=== PATIENT | female | born 1970 | race Caucasian/White ===

== ENCOUNTER 2023-03-24 07:17 | Outpatient (OUT) | payer OTHER, BC, SELFPAY ==
--- NOTE | 2023-03-24 07:44 | MM_ITS ---
Patient: ARACELI CLARKE Exam Date: 03/24/2023 : 1970 Gender:F Ordering : DR BRENT RIVERA Admission #: [id number] Family : Non-Staff Physician Order #: [id number] CLICK HERE TO VIEW EXAM RADIOLOGY REPORT PROCEDURE: MM TOMOSYNTHESIS SCREENING BI COMPARISON: MG MAMM SCREEN 3D DAXA CAD, 11/23/2020. MG MAMM SCREEN 3D DAXA CAD, 02/03/2022. INDICATIONS: Screening Calculator Name NCI Breast Cancer Risk Assessment Tool 5 Year Breast Cancer Risk 1.20% Lifetime Breast Cancer Risk 10.60% Personal Breast Cancer No Personal Ovarian Cancer No Treatments None Family Cancers None LOCATION: [facility] BREAST COMPOSITION: Heterogeneously dense,which may obscure small masses. FINDINGS: DIAGNOSTIC CATEGORY 1--NEGATIVE. NO CHANGE FROM COMPARISON ASSESSMENT. Scattered benign-appearing calcifications are present. Scattered benign-appearing lymph nodes are present. RIGHT BREAST: No significant suspicious finding. LEFT BREAST: No significant suspicious finding. RECOMMENDATIONS: ROUTINE MAMMOGRAM AND CLINICAL EVALUATION IN 12 MONTHS. PLEASE NOTE: A NORMAL MAMMOGRAM DOES NOT EXCLUDE THE POSSIBILITY OF BREAST CANCER. A CLINICALLY SUSPICIOUS PALPABLE LUMP SHOULD BE BIOPSIED. Dictated by: Ryan Lopez MD on 03/24/2023 at 08:02 Approved by: Ryan Lopez MD on 03/24/2023 at 08:04
== END 2023-03-24 07:18 | disposition home or self-care (01) ==
LOC: MAMMO 07:17
PROVIDERS: Visit Provider Obstetrics & Gynecology
DX: Z12.31 Encounter for screening mammogram for malignant neoplasm of breast (principal)
CPT/HCPCS: 77063; 77067

== ENCOUNTER 2024-04-05 09:47 | Outpatient (OUT) | payer BC, SELFPAY ==
--- NOTE | 2024-04-05 09:50 | MM_ITS ---
Patient Name: ARACELI CLARKE MR#: [id number] : 1970 Exam Date: 04/05/2024 Ordering Doctor: DR BRENT RIVERA RADIOLOGY REPORT PROCEDURE: MM TOMOSYNTHESIS SCREENING BI COMPARISON: MM TOMOSYNTHESIS SCREENING BI, 03/24/2023. MG MAMM SCREEN 3D DAXA CAD, 02/03/2022. MG MAMM SCREEN 3D DAXA CAD, 11/23/2020. MG MAMM DAXA SCRN W CAD DIG, 03/25/2013. INDICATIONS: Screening Calculator Name NCI Breast Cancer Risk Assessment Tool 5 Year Breast Cancer Risk 1.30% Lifetime Breast Cancer Risk 10.50% Personal Breast Cancer No Personal Ovarian Cancer No Treatments None Family Cancers None LOCATION: [facility] BREAST COMPOSITION: The breasts are heterogeneously dense,which may obscure small masses. FINDINGS: DIAGNOSTIC CATEGORY 2--BENIGN FINDING: RIGHT BREAST: No significant suspicious finding. No significant change has occurred. LEFT BREAST: No significant suspicious finding. Scattered benign-appearing lymph nodes are present. No significant change has occurred. RECOMMENDATIONS: ROUTINE MAMMOGRAM AND CLINICAL EVALUATION IN 12 MONTHS. PLEASE NOTE: A NORMAL MAMMOGRAM DOES NOT EXCLUDE THE POSSIBILITY OF BREAST CANCER. A CLINICALLY SUSPICIOUS PALPABLE LUMP SHOULD BE BIOPSIED. Dictated by: Barry Lucia M.D. on 04/10/2024 at 14:31 Approved by: Barry Lucia M.D. on 04/10/2024 at 14:45
== END 2024-04-05 09:48 | disposition home or self-care (01) ==
LOC: MAMMO 09:47
PROVIDERS: Visit Provider Obstetrics & Gynecology
DX: Z12.31 Encounter for screening mammogram for malignant neoplasm of breast (principal)
CPT/HCPCS: 77063; 77067

== ENCOUNTER 2025-04-24 14:20 | Outpatient (OUT) | payer BC, SELFPAY ==
--- OUTSIDE RECORDS SUMMARY | 2025-04-24 14:23 | XMS_ITS | Encounter Summary ---
Author Organization [facility] Address [address] [place] [address] Care Team Providers Care Production Solderer Name Role Phone Jose Muhammad MD Primary Care Provider [phone] Andressa Cronin MD Unavailable [phone] Tom Hope DO Unavailable [phone] Encounter Details Date Type Department Care Team (Late st Contact Info) Description 04/10/2024 Clinisync Result Encounter [facility] External Department Unsolicited Brent Rivera, DO [address] [facility] [address] [place] [address] Social History Tobacco Use Types Packs/Day Years Used Date Smoking Tobacco: Former Cigarettes 0.3 10 Smokeless Tobacco: Never Alcohol Use Standard Drinks/Week Comments Not Currently 2 (1 standard drink = 0.6 oz pure alcohol) Caffeine intake: >4 cups per day coffee AUDIT-C Answer Date Recorded Q1: How often do you have a drink containing alc ohol? Monthly or less 07/10/2023 Q2: How many drinks containi ng alcohol do you have on a typical day when you are drinking? 1 or 2 07/10/2023 Q3: How often do you have si x or more drinks on one occasion? Never 07/10/2023 PHQ-2 Answer Date Recorded Patient Health Questionnaire-2 Score 0 07/10/2023 Comments No Sex and Gender Information Value Date Recorded Sex Assigned at Female 07/03/2023 9:10 AM EST Legal Sex Female 6:54 PM EDT Gender Identity Female 07/03/2023 9:10 AM EST Sexual Orientation Not on file documented as of this encounter Plan of Treatment Upcoming Encounters Date Type Department Care Team (Late st Contact Info) Description 07/25/2025 8:30 AM EST Office Visit [facility] [address] [place] [phone] Brent Rivera DO [address] [place] [address] 11/26/2025 4:05 PM EDT Office Visit [facility] [address] [place] [address] Trudy Contreras MD [address] [place] [address] documented as of this encounter Procedures Procedure Name Priority Date/Time Associated Diagnosis Comments MM TOMOSYNTHESIS SCREENING BI 04/10/2024 2:45 PM EDT documented in this encounter Results * MM TOMOSYNTHESIS SCREENING BI (04/10/2024 2:45 PM EDT) Anatomical Region Laterality Modality Other 04/10/2024 2:45 PM EDT Narrative 04/10/2024 2:46 [place] [address] Mammography Report Signed Patient: POLA CLARKE MR#: [id number] : 1970 Acct:[id number] Age/Sex: 53 / F ADM Date: 04/05/24 Loc: MAMMO Attending Dr: BRENT RIVERA Ordering Physician: BRENT RIVERA Results: Date of Service: 04/05/24 Follow Up: Procedure(s): MM tomosynthesis screening BI Accession Number(s): [id number] cc: BRENT RIVERA ; Physician,Non-Staff M.D. Patient Name: POLA CLARKE MR#: [id number] : 1970 Exam Date: 04/05/2024 Ordering Doctor: DR BRENT RIVERA RADIOLOGY REPORT PROCEDURE: MM TOMOSYNTHESIS SCREENING BI COMPARISON: MM TOMOSYNTHESIS SCREENING BI, 03/24/2023. MG MAMM SCREEN 3D DAXA CAD, 02/03/2022. MG MAMM SCREEN 3D DAXA CAD, 11/23/2020. MG MAMM DAXA SCRN W CAD DIG, 03/25/2013. INDICATIONS: Screening Calculator Name NCI Breast Cancer Risk Assessment Tool 5 Year Breast Cancer Risk 1.30% Lifetime Breast Cancer Risk 10.50% Personal Breast Cancer No Personal Ovarian Cancer No Treatments None Family Cancers None LOCATION: [facility] BREAST COMPOSITION: The breasts are heterogeneously dense,which may obscure small masses. FINDINGS: DIAGNOSTIC CATEGORY 2--BENIGN FINDING: RIGHT BREAST: No significant suspicious finding. No significant change has occurred. LEFT BREAST: No significant suspicious finding. Scattered benign-appearing lymph nodes are present. No significant change has occurred. RECOMMENDATIONS: ROUTINE MAMMOGRAM AND CLINICAL EVALUATION IN 12 MONTHS. PLEASE NOTE: A NORMAL MAMMOGRAM DOES NOT EXCLUDE THE POSSIBILITY OF BREAST CANCER. A CLINICALLY SUSPICIOUS PALPABLE LUMP SHOULD BE BIOPSIED. Dictated by: Barry Lucai M.D. on 04/10/2024 at 14:31 Approved by: Barry Lucia M.D. on 04/10/2024 at 14:45 Dictated By: Barry Lucia M.D. Signed By: 04/10/24 1446 DD/ 1445 TD/TT: Coagulant Dipper: Procedure Note Radiology, Radiologist, MD - 04/10/2024 [place] [address] Mammography Report Signed Patient: POLA CLARKE MMR#: [id number] : 1970Acct:[id number] Age/Sex: 53 / FADM Date: 04/05/24 Loc: MAMMO Attending Dr: BRENT RIVERA Ordering Physician: BRENT RIVERAResults: Date of Service: 04/05/24Follow Up: Procedure(s): MM tomosynthesis screening BI Accession Number(s): [id number] cc: BRENT RIVERA ; Physician,Non-Staff Lisa Patient Name: POLA CLARKE MR#: [id number] : 1970 Exam Date: 04/05/2024 Ordering Doctor: DR BRENT RIVERA RADIOLOGY REPORT PROCEDURE: MM TOMOSYNTHESIS SCREENING BI COMPARISON: MM TOMOSYNTHESIS SCREENING BI, 03/24/2023. MG MAMM [id number] DXAA CAD, 02/03/2022. MG MAMM SCREEN 3D DAXA CAD, 11/23/2020. MG MAMM BILSCRN W CAD DIG, 03/25/2013. INDICATIONS: Screening Calculator Name NCI Breast Cancer Risk Assessment Tool 5 Year Breast Cancer Risk 1.30% Lifetime Breast Cancer Risk 10.50% Personal Breast Cancer No Personal Ovarian Cancer No Treatments None Family Cancers None LOCATION: [facility] BREAST COMPOSITION: The breasts are heterogeneously dense,which may obscure small masses. FINDINGS: DIAGNOSTIC CATEGORY 2--BENIGN FINDING: RIGHT BREAST: No significant suspicious finding. No significant changehas occurred. LEFT BREAST: No significant suspicious finding. Scatteredbenign-appearing lymph nodes are present. No significant change has occurred. RECOMMENDATIONS: ROUTINE MAMMOGRAM AND CLINICAL EVALUATION IN 12 MONTHS. PLEASE NOTE: A NORMAL MAMMOGRAM DOES NOT EXCLUDE THE POSSIBILITY OFBREAST CANCER. A CLINICALLY SUSPICIOUS PALPABLE LUMP SHOULD BE BIOPSIED. Dictated by: Barry Lucia M.D. on 04/10/2024 at 14:31 Approved by: Barry Lucia M.D. on 04/10/2024 at 14:45 Dictated By: Barry Lucia M.D. Signed By:04/10/24 1446 DD/ 1445 TD/TT: Coagulant Dipper: Brent Rivera DO [facility] Final Resu lt documented in this encounter Visit Diagnoses Not on filedocumented in this encounter Care Teams Production Solderer Relationship Specialty Start Date End Date Jose Muhammad MD PCP - General Family Medicine 07/10/23 Andressa Cronin MD [address] [facility] [address] [place] [address], [place] [address] Referring Physician Family Medicine 07/22/24 Tom Hope DO [address] [place] [address] Otolaryngology 07/23/24 documented as of this encounter
--- OUTSIDE RECORDS SUMMARY | 2025-04-24 14:23 | XMS_ITS | Encounter Summary ---
Author Organization [facility] Address [address] [place] [address] Care Team Providers Care Hammer Driver Name Role Phone Jose Muhammad MD Primary Care Provider [phone] Andressa Cronin MD Unavailable [phone] Tom Hope DO Unavailable [phone] Encounter Details Date Type Department Care Team (Late st Contact Info) Description 03/29/2023 Orders Only [facility] [address] [place] [address] John Gomes DO [address] [place], [place] [id number] Social History Tobacco Use Types Packs/Day Years Used Date Smoking Tobacco: Never Assessed Comments Unknown Sex and Gender Information Value Date Recorded Sex Assigned at Female 07/03/2023 9:10 AM EST Legal Sex Female 6:54 PM EDT Gender Identity Female 07/03/2023 9:10 AM EST Sexual Orientation Not on file documented as of this encounter Plan of Treatment Upcoming Encounters Date Type Department Care Team (Late st Contact Info) Description 07/25/2025 8:30 AM EST Office Visit [facility] [address] [place] [address] Jhon Gomes, [address] [place] [address] 11/26/2025 4:05 PM EDT Office Visit [facility] [address] [place] [phone] Trudy Contreras MD [address] [place] [address] documented as of this encounter Procedures Procedure Name Priority Date/Time Associated Diagnosis Comments MAMMOGRAM-DIAGNOSTIC* Routine 03/24/2023 8:59 AM EDT documented in this encounter Results * MAMMOGRAM-DIAGNOSTIC* (03/24/2023 8:59 AM EDT) Anatomical Region Laterality Modality Radiographic Alecia ging John Gomes DO IMG XR PROCEDURES Final Resu lt documented in this encounter Visit Diagnoses Not on filedocumented in this encounter Care Teams Hammer Driver Relationship Specialty Start Date End Date Jose Muhammad MD PCP - General Family Medicine 07/10/23 Andressa Cronin MD [address] [facility] [address] [place] [address] Referring Physician Family Medicine 07/22/24 Tom Hope DO [address] [place] [place] [address] Otolaryngology 07/23/24 documented as of this encounter
--- NOTE | 2025-04-24 14:24 | MM_ITS ---
Patient Name: ARACELI CLARKE MR#: [id number] : 1970 Exam Date: 04/24/2025 Ordering Doctor: DR BRENT RIVERA RADIOLOGY REPORT PROCEDURE: MM TOMOSYNTHESIS SCREENING BI COMPARISON: MM TOMOSYNTHESIS SCREENING BI, 04/05/2024. MM TOMOSYNTHESIS SCREENING BI, 03/24/2023. MG MAMM SCREEN 3D DAXA CAD, 02/03/2022. MG MAMM DAXA SCRN W CAD DIG, 03/25/2013. INDICATIONS: Screening Calculator Name NCI Breast Cancer Risk Assessment Tool 5 Year Breast Cancer Risk 1.30% Lifetime Breast Cancer Risk 10.30% Personal Breast Cancer No Personal Ovarian Cancer No Treatments None Family Cancers None LOCATION: [facility] BREAST COMPOSITION: There are scattered areas of fibroglandular density. FINDINGS: DIAGNOSTIC CATEGORY 1--NEGATIVE. RIGHT BREAST: No significant suspicious finding. LEFT BREAST: No significant suspicious finding. RECOMMENDATIONS: ROUTINE MAMMOGRAM AND CLINICAL EVALUATION IN 12 MONTHS. Dictated by: Shiva Newsome MD on 04/24/2025 at 16:02 Approved by: Shiva Newsome MD on 04/24/2025 at 16:07
--- OUTSIDE RECORDS SUMMARY | 2025-04-24 14:24 | XMS_ITS | Clinical Summary ---
Author Organization [facility] Address [address] [place] [address] Care Team Providers Care Hot Repairman Name Role Phone Jose Muhammad MD Primary Care Provider Andressa Cronin MD Unavailable [phone] Tom Hope DO Unavailable [phone] Allergies Active Allergy Reactions Criticality Noted Date Comments Morphine Hives,Itching,Other,Rash Low 07/10/2023 Penicillamine GI intolerance 07/10/2023 Penicillins 07/10/2023 Other Reaction(s): Unknown Medications Ventolin HFA 108 (90 Base) MCG/ACT inhaler if needed 11/28/2022 Act mery cholecalciferol (Vitamin D3) 25 MCG (1000 UT) tablet Active loratadine (Claritin) 10 MG tablet if needed Active zinc 100 MG tablet Active cyclobenzaprine (Flexeril) 5 MG tablet Take 5 mg by mouth 09/29/2023 Active ibuprofen 800 MG tablet Take 800 mg by mouth every 6 (six) hours Active fluticasone (Flonase Allergy Relief) 50 MCG/ACT nasal spray 06/07/2024 Active fluorouracil (Efudex) 5 % creamIndication s:Actinic keratosis Apply to directed areas on left eyebrow bid x 14 days 40 g 11/25/2024 Active Active Problems Problem Noted Date Diagnosed Date Tympanic membrane rupture 08/08/2024 Fibrocystic breast changes 07/10/2023 Status post hysterectomy 07/10/2023 Abscess of skin of abdomen 07/10/2023 Acute sinusitis with symptoms > 10 days 07/10/20 23 Anxiety 07/10/2023 Conjunctivitis 07/10/2023 COVID-19 vaccine series started 07/10/2023 OM (onychomycosis) 07/10/2023 Panic attack as reaction to stress 07/10/2023 Resolved Problems Problem Noted Date Diagnosed Date Resolved Date Cervical high risk HPV (héctor n papillomavirus) test positive 07/10/2023 07/10/2023 Vaginal high risk human carolin llomavirus (HPV) DNA test positive 07/10/2023 07/10/2023 COVID-19 07/10/2023 07/10/2023 COVID-19 long hauler 07/10/2023 023 Current smoker 07/10/2023 07/10/2023 Overview (07/10/2023): Added secondary to documentation in Social History. Immunizations Immunization Administration Dates Next Due Influenza, Unspecified 06/05/2023 Influenza, injectable, quadrivalent, preservativ e free 06/05/2023 MMR 06/28/2023 Family History Medical History Relation Name Comments Diabetes Maternal Grandfather Marcelino Nelson Hearing loss Maternal Grandfather Marcelino Nelson Heart disease Maternal Grandfather Marcelino Nelson Hypertension Maternal Grandfather Marcelino Nelson Stroke Maternal Grandmother Diana Nelson Diabetes Mother Shayy Andres Cancer Neg Hx Melanoma Neg Hx Relation Name Status Comments Father Maternal Grandfather Marcelino Nelson Maternal Grandmother Diana Andres Social History Tobacco Use Types Packs/Day Years Used Date Smoking Tobacco: Former Cigarettes 0.3 10 Smokeless Tobacco: Never Alcohol Use Standard Drinks/Week Comments Not Currently 2 (1 standard drink = 0.6 oz pure alcohol) Caffeine intake: >4 cups per day coffee AUDIT-C Answer Date Recorded Q1: How often do you have a drink containing alc ohol? Monthly or less 07/19/2024 Q2: How many drinks containi ng alcohol do you have on a typical day when you are drinking? 1 or 2 07/19/2024 Q3: How often do you have si x or more drinks on one occasion? Never 07/19/2024 PHQ-2 Answer Date Recorded Patient Health Questionnaire-2 Score 0 07/19/2024 Comments No Sex and Gender Information Value Date Recorded Sex Assigned at Female 07/03/2023 9:10 AM EST Legal Sex Female 6:54 PM EDT Gender Identity Female 07/03/2023 9:10 AM EST Sexual Orientation Not on file Last Filed Vital Signs Vital Sign Reading Time Taken Comments Blood Pressure 160/86 07/19/2024 8:20 AM EST Pulse - - Temperature - - Respiratory Rate - - Oxygen Saturation - - Inhaled Oxygen Concentration - - Weight 81.6 kg (180 lb) 09/10/2024 3:12 PM EST Height 167.6 cm (5' 6 ) 09/10/2024 3:12 PM EST Body Mass Index 29.05 09/10/2024 3:12 PM EST Plan of Treatment Upcoming Encounters Date Type Department Care Team (Late st Contact Info) Description 07/25/2025 8:30 AM EST Office Visit [facility] [address] [place] [address] Brent Rivera DO [address] [place] [address] 11/26/2025 4:05 PM EDT Office Visit [facility] [address] [place] [address] Trudy Contreras MD [address] [place] [address] Health Maintenance Due Date Last Done Comments CT Colonography 1970 Colonoscopy 1970 Colorectal Cancer Screening 1970 FIT-DNA 1971 FIT 1971 FOBT 1970 Sigmoidoscopy 1970 Pap Smear 1992 Influenza Vaccine (#1) 2025 06/05/2023, 2022 Mammogram 04/10/2025 04/10/2024, 03/07, 02/03/2022, Additional history exists Cervical Cancer Screening 07/19/2029 HPV/Cotest 07/19/2029 07/19/2024, 03/07, 10/08/2019, Additional history exists Procedures Procedure Name Priority Date/Time Associated Diagnosis Comments IGP,RFXAPTIMA HPV ALL,16/18,45 Routine 07/19/2024 12:00 AM EST Encounter for Papanicolaou smear of vagina MM TOMOSYNTHESIS SCREENING BI 04/10/2024 2:45 PM EDT from Last 3 Months or Most Recently Relevant to Health Maintenance Results * IGP,rfxAptima HPV all,16/18,45 (07/19/2024 12:00 AM EST) Diagnosis: Comment [facility] Comment:NEGATIVE FOR INTRAEP ITHELIAL LESION OR MALIGNANCY. Specimen Adequacy: Comment [facility] Comment: Satisfactory for evaluation. No endocervical cells are present. This is consistent with a history of hysterectomy. Clinician Provided ICD10: Comment [facility] Comment:Z12.72 Performed By: Comment [facility] Comment:Bonnie Verma, Cytot echnologist (ASC) Cyto Comments . [facility] Note: Comment [facility] Comment: The Pap smear is a screening test designed to aid in the detection of premalignant and malignant conditions of the uterine cervix. It is not a diagnostic procedure and should not be used as the sole means of detecting cervical cancer. Both false-positive and false-negative reports do occur. Test Methodology: Comment [facility] Comment: This liquid based ThinPrep(R) pap test was screened with the use of an image guided system. . Comment [facility] Comment: The HPV DNA reflex criteria were not met with this specimen result therefore, no HPV testing was performed. Swab Vaginal structure / Unknown 07/19/2024 07/22/2024 Comment:Vagina LMP: ROMY BSO 20 Narrative [facility] - 07/26/2024 1:06 PM EST Performed at: [facility] [id number] Revising Clerk: Felicity Rose MD, Phone: [phone] Specimen Comment: [id number] Specimen Comment: No. of containers..01 ThinPrep Vial Brent Rivera DO LAB CYTOLOGY ORDERABLES Elin fontenot Result [facility] * MM TOMOSYNTHESIS SCREENING BI (04/10/2024 2:45 PM EDT) Anatomical Region Laterality Modality Other 04/10/2024 2:45 PM EDT Narrative 04/10/2024 2:46 [place] [address] Mammography Report Signed Patient: POLA CATHERINE MR#: [id number] : 1970 Acct:[id number] Age/Sex: 53 / F ADM Date: 04/05/24 Loc: MAMMO Attending Dr: BRENT RIVERA Ordering Physician: BRENT RIVERA Results: Date of Service: 04/05/24 Follow Up: Procedure(s): MM tomosynthesis screening BI Accession Number(s): [id number] cc: BRENT RIVERA ; Physician,Non-Staff Lisa Patient Name: POLA CATHERINE MR#: [id number] : 1970 Exam Date: 04/05/2024 Ordering Doctor: [...] Treatments None Family Cancers None LOCATION: [facility] BREAST COMPOSITION: The breasts are heterogeneously dense,which [...] Signed By: 04/10/24 1446 DD/ 1445 TD/TT: Shipper/Receiver: Procedure Note Radiology, Radiologist, MD - 04/10/2024 [place] [address] Mammography Report Signed Patient: POLA CATHERINE MMR#: [id number] : 1970Acct:[id number] Age/Sex: 53 / FADM Date: 04/05/24 Loc: MAMMO Attending Dr: BRENT RIVERA Ordering Physician: BRENT RIVERAResults: Date of Service: 04/05/24Follow Up: Procedure(s): MM tomosynthesis screening BI Accession Number(s): [id number] cc: BRENT RIVERA ; Physician,Non-Staff Lisa Patient Name: POLA CATHERINE MR#: [id number] : 1970 Exam Date: 04/05/2024 Ordering Doctor: DR BRENT RIVERA RADIOLOGY REPORT PROCEDURE: MM TOMOSYNTHESIS SCREENING BI COMPARISON: MM TOMOSYNTHESIS SCREENING BI, 03/24/2023. MG MAMM [id number] DAXA CAD, 02/03/2022. MG MAMM SCREEN 3D DAXA CAD, 11/23/2020. MG MAMM BILSCRN W CAD DIG, 03/25/2013. INDICATIONS: Screening Calculator Name NCI Breast Cancer Risk Assessment Tool 5 Year Breast Cancer Risk 1.30% Lifetime Breast Cancer Risk 10.50% Personal Breast Cancer No Personal Ovarian Cancer No Treatments None Family Cancers None LOCATION: [facility] BREAST COMPOSITION: The breasts are heterogeneously dense,which [...] M.D. Signed By:04/10/24 1446 DD/ 1445 TD/TT: Shipper/Receiver: Brent Rivera DO [facility] Final Resu lt from Last 3 Months or Most Recently Relevant to Health Maintenance Insurance [facility] Care Teams Hot Repairman Relationship Specialty Start Date End Date Jose Muhammad MD PCP - General Family Medicine 07/10/23 Andressa Cronin MD [address] [place] [address] Referring Physician Family Medicine 07/22/24 Tom Hope DO [address] [place] [address] Otolaryngology 07/23/24
--- OUTSIDE RECORDS SUMMARY | 2025-04-24 14:40 | XMS_ITS | CCD ---
Author Organization [facility] Inform ion [facility] Care Team Providers Care Environmental Engineer Scientist Name Role Phone NICOLE, DR KENNEDY Attending Unavailable NICOLE, DR KENNEDY Admitting Unavailable RONALD, DR JR Martinez Consulting Unavailable [facility], DR MICHELLE Primary Care Unavailable NICOLE, DR KENNEDY Consulting Unavailable KRYSTA CRUZ Primary Care Physician MD Chris Singh Primary Care Provider [facility] Visits, NIKOS Tian Attending Prov ider LAWSON FELIPE Primary Care Physician OWEN CRONIN Primary Care Physician [phone] OWEN CRONIN Admitting UnavailOWEN Herndon Attending UnavailHiro Mixon Attending Unavailable OWEN CRONIN Attending UnavailOWEN Herndon Attending UnavailOWEN Herndon Admitting UnavailOWEN Herndon Attending UnavailOWEN Herndon Referring UnavailOWEN Herndon Attending UnavailOWEN Herndon Admitting UnavailMD Chris Dyer Primary Care Provider [facility], DO Scotty Vasquez [facility] Admitting Unavailable Chris Singh Primary Care Unavailable Jose Muhammad MD Primary Care Provider Owen Cronin MD Unavailable [phone] Tom Oro DO Unavailable [phone] Jose Muhammad MD Primary Care Provider TOM ORO Attending Unavailable OWEN CRONIN Referring Unavailable GERBER PARKER Attending Unavailable JOHN RIVERA Attending Unavailable TOM ORO Attending Unavailable OWEN CRONIN Referring Unavailable TOM ORO Attending Unavailable OWEN CRONIN Referring Unavailable Keily Dangelo Admitting Unavailable BorKeily harper Attending Unavailable Lisa Jacobo Attending Unavailable Keily Dangelo Attending Unavailable Keily Dangelo Attending Unavailable OWEN CRONIN Attending Unavailabl e Keily Dangelo Admitting Unavailable Keily Dangelo Attending Unavailable OWEN CRONIN Referring Unavailabl e OWEN CRONIN Admitting Unavailabl e OWEN CRONIN Attending Unavailabl e OWEN CRONIN Attending Unavailabl e OWEN CRONIN Attending Unavailabl e Allergies Allergy Classification Reported Allergen(s) Allergy Type Date of Onset Reaction(s) Facility (20 sources) Morphine; Translations: [morphine] Drug Allergy 07-10-20 23 Hives, Itching, Other, Rash [facility] (20 sources) Penicillins; Translations: [penicillins] Drug allergy 07-10-20 23 Gastrointestinal Upset [facility] (1 source) Morphine Drug Allergy 12-05-19 [facility] (13 sources) penicillAMINE Drug Allergy 07-10-20 23 GI intolerance [facility] Medications Current Medications Medication Drug Class(es) Dates Sig (Normalized) Sig (Original) [id number] 200 actuat albuterol 0.09 mg/actuat metered dose inhaler (13 sources) beta2-Adrenergic Agonist Start: 11-28-2022 Ventolin HFA 108 (90 Base) MCG/ACT inhaler if needed 11/28/2022 Active azithromycin 250 mg oral tablet (1 source) Macrolide Antimicrobial Start: 04-16-2025 End: 04-21-2025 Zithromax 250 mg Tab = 1 packet(s), Oral, As Directed, as directed on package labeling, X 5 day(s), # 6 tab(s), Refills(s) 0, Pharmacy: [facility] #[id number], 168, cm, 04/16/25 11:29:00 EDT, Height/Length Dosing, 86.1, kg, 04/16/25 11:29:00 EDT, Weight Dosing Start Date: 04/16/25 Stop Date: 04/21/25 Status: Ordered Quantity: 6.0 Unit: tab(s) Repeat number: 1 Indications: Chronic sinusitis, unspecified; azithromycin 250 mg Tab 5-day Dose Pack (Z-Valentín) (3 sources) Start: 09-18-2024 azithromycin 250 mg Tab 5-day Dose Pack (Z-Valentín) See Instructions, Take 2 tablets by mouth orally today then 1 tablet daily for the next 4 days, # 6 tab(s), Refills(s) 0, Pharmacy: [facility] #[id number], 168, cm, 09/18/24 17:24:00 EST, Height/Length Dosing, 85, kg, 09/18/24 17:24:00 EST, Weight Dosing Start Date: 09/18/24 Status: Ordered Quantity: 6.0 Unit: tab(s) Repeat number: 1 Indications: Wheezing; Other specified cough; Start: 09-18-2024 azithromycin 2 50 mg Tab 5-day Dose Pack (Z-Valentín) See Instructions, Take 2 tablets by mouth orally today then 1 tablet daily for the next 4 days, # 6 tab(s), Refills(s) 0, Pharmacy: [facility] #[id number], 168, cm, 09/18/24 17:24:00 EST, Height/Length Dosing, 85, kg, 09/18/24 17:24:00 EST, Weight Dosing Start Date: 09/18/24 Status: Ordered benzonatate 100 mg oral capsule (2 sources) Non-narcotic Antitussive Start: 04-10-2025 End: 04-24-2025 take 1 capsule by mouth three times daily Tessalon 100 mg Cap 100 mg = 1 cap(s), Oral, TID, X 14 day(s), # 42 cap(s), Refills(s) 0, Pharmacy: [facility] #[id number], 168, cm, 04/10/25 9:07:00 EDT, Height/Length Dosing, 84.4, kg, 04/10/25 9:07:00 EDT, Weight Dosing Start Date: 04/10/25 Stop Date: 04/24/25 Status: Ordered Quantity: 42.0 Unit: cap(s) Repeat number: 1 Indications: Pneumonia, unspecified organism; brompheniramine maleate 0.4 mg/ml / dextromethorphan hydrobromide 2 mg/ml / pseudoephedrine hydrochloride 6 mg/ml oral solution (4 sources) alpha-Adrenergic Agonist, Uncompetitive A-fcinjd-H-asparta te Receptor Antagonist, Sigma-1 Agonist Start: 04-04-2025 End: 04-09-2025 take 10 mL by mouth four times daily Bromfed DM oral syrup 10 mL, Oral, QID for 5 day(s), 200 mL, Refill(s) 0, [facility] #[id number], 168, cm, 04/04/25 17:02:00 EDT, Height/Length Dosing, 85.3, kg, 04/04/25 17:02:00 EDT, Weight Dosing Start Date: 04/04/25 Stop Date: 04/09/25 Status: Ordered Quantity: 200.0 Unit: mL Repeat number: 1 Indications: Acute pharyngitis, unspecified; Start: 09-11-2024 End: 09-21-2024 take 10 mL by mouth four times daily for cough and congestion Bromfed DM oral syrup 10 mL, Oral, QID for cough and congestion for 10 day(s), 240 mL, Refill(s) 0, [facility] #[id number], 168, cm, 09/11/24 9:13:00 EST, Height/Length Dosing, 84.2, kg, 09/11/24 9:13:00 EST, Weight Dosing Start Date: 09/11/24 Stop Date: 09/21/24 Status: Ordered Calcium Citrate / Vitamin D (12 sources) Start: 05-21-2020 take 1 tablet by mouth once daily calcium-vitamin D See Instructions, Refill(s) 0, 1 tab po daily Start Date: 05/21/20 Status: Ordered Repeat number: 1 Start: 05-21-2020 take 1 tablet by yaima once daily calcium-vitamin D See Instructions, Refill(s) 0, 1 tab po daily Start Date: 05/21/20 Status: Ordered cefdinir 300 mg oral capsule (2 sources) Cephalosporin Antibacterial Start: 09-11-2024 End: 09-18-2024 take 1 capsule by mouth every twelve hours cefdinir 300 mg Cap 300 mg = 1 cap(s), Oral, q12hr, X 7 day(s), # 14 cap(s), Refills(s) 0, [id number], 168, cm, 09/11/24 9:13:00 EST, Height/Length Dosing, 84.2, kg, 09/11/24 9:13:00 EST, Weight Dosing Start Date: 09/11/24 Stop Date: 09/18/24 Status: Ordered Start: 12-08-2022 End: 12-18-2022 take 1 capsule by mouth every twelve hours cefdinir 300 mg Cap 300 mg = 1 cap(s), Oral, q12hr, X 10 day(s), # 20 cap(s), Refills(s) 0, Pharmacy: [facility] #[id number], 168, cm, 12/08/22 10:46:00 EDT, Height/Length Dosing, 83.6, kg, 12/08/22 10:46:00 EDT, Weight Dosing Start Date: 12/08/22 Stop Date: 12/18/22 Status: Ordered cephalexin 500 mg oral capsule (1 source) Cephalosporin Antibacterial Start: 03-28-2024 take 500 mg by mouth every twelve hours Cephalexin Active 500 MG PO Every 12 hours 17 02March 27, 2024 11:00pm cholecalciferol 0.025 mg oral tablet (13 sources) Vitamin D cholecalciferol (Vitamin D3) 25 MCG (1000 UT) tablet Active cyclobenzaprine hydrochloride 5 mg oral tablet (20 sources) Muscle Relaxant Start: 09-29-2023 take 1 tablet by mouth three times daily cyclobenzaprine 5 mg Tab 5 mg = 1 tab(s), Oral, TID, # 30 tab(s), Refills(s) 1, Pharmacy: [facility] #[id number], 168, cm, 09/29/23 15:08:00 EST, Height/Length Dosing, 83, kg, 09/29/23 15:08:00 EST, Weight Dosing Start Date: 09/29/23 Status: Ordered Quantity: 30.0 Unit: tab(s) Repeat number: 2 Indications: Body mass index [BMI] 29.0-29.9, adult; Overweight; doxycycline hyclate 100 mg oral capsule (9 sources) Tetracycline-class Drug Start: 04-16-2025 take 1 capsule by mouth twice daily doxycycline hyclate 100 mg Cap 100 mg = 1 cap(s), Oral, BID, # 20 cap(s), Refills(s) 0, Pharmacy: [facility] #[id number], 168, cm, 04/16/25 11:29:00 EDT, Height/Length Dosing, 86.1, kg, 04/16/25 11:29:00 EDT, Weight Dosing Start Date: 04/16/25 Status: Ordered Quantity: 20.0 Unit: cap(s) Repeat number: 1 Indications: Chronic sinusitis, unspecified; Start: 07-18-2024 End: 08-08-2024 doxycycline (Vibramycin) 100 MG capsule 07/18/2024 08/08/2024 Discontinued Start: 12-05-2023 take 100 mg by mouth twice daily Doxycycline Hyclate Active 100 MG PO Twice daily 14 December 04, 2023 11:00pm Flonase 0.05 mg/inh nasal spray (12 sources) Start: 01-04-2022 Flonase 0.05 m g/inh nasal spray 2 spray(s), Nasal, Daily, 16 gm, Refill(s) 3, prn, [facility], 168, cm, 09/16/21 12:59:00 EST, Height/Length Dosing, 81.2, kg, 09/16/21 12:59:00 EST, Weight Dosing Start Date: 01/04/22 Status: Ordered Quantity: 16.0 Unit: g Repeat number: 4 Start: 01-04-2022 Flonase 0.05 m g/inh nasal spray 2 spray(s), Nasal, Daily, 16 gm, Refill(s) 3, prn, [facility], 168, cm, 09/16/21 12:59:00 EST, Height/Length Dosing, 81.2, kg, 09/16/21 12:59:00 EST, Weight Dosing Start Date: 01/04/22 Status: Ordered fluconazole 150 mg oral tablet (11 sources) Azole Antifungal Start: 04-16-2025 Diflucan 150 mg Tab 150 mg = 1 tab(s), Oral, q72hr, # 4 tab(s), Refills(s) 1, Pharmacy: [facility] #[id number], 168, cm, 04/16/25 11:29:00 EDT, Height/Length Dosing, 86.1, kg, 04/16/25 11:29:00 EDT, Weight Dosing Start Date: 04/16/25 Status: Ordered Quantity: 4.0 Unit: tab(s) Repeat number: 2 Indications: Acute candidiasis of vulva and vagina; Start: 07-18-2024 End: 08-08-2024 Diflucan 150 mg Tab 150 mg = 1 tab(s), Oral, q7day, # 4 tab(s), Refills(s) 1, Pharmacy: [facility] #[id number], 168, cm, 07/18/24 15:16:00 EST, Height/Length Dosing, 84.6, kg, 07/18/24 15:16:00 EST, Weight Dosing Start Date: 07/18/24 Status: Ordered fluorouracil 50 mg/ml topical cream (2 sources) Nucleoside Metabolic Inhibitor Start: 11-25-2024 fluorouracil (Efudex ) 5 % cream Indications: Actinic keratosis Apply to directed areas on left eyebrow bid x 14 days 40 g 11/25/2024 Active fluticasone propionate 0.05 mg/actuat metered dose nasal spray (10 sources) Corticosteroid Start: 06-07-2024 fluticasone (F lonase Allergy Relief) 50 MCG/ACT nasal spray 06/07/2024 Active Start: 07-07-2022 take 2 spray(s) nasa l route once daily as needed fluticasone Nasal 0.05 mg/inh [place] 2 spray(s), Nasal, Daily, 16 gram, Refill(s) 0, each nostril-use daily as needed, [facility] #[id number], 168, cm, 09/16/21 12:59:00 EST, Height/Length Dosing, 81.2, kg, 09/16/21 12:59:00 EST, Weight Dosing Start Date: 07/07/22 Status: Ordered 12 hr guaiFENesin 600 mg extended release oral tablet (3 sources) Start: 09-11-2024 End: 09-25-2024 take 1 tablet by mouth every twelve hours Mucinex 600 mg Tab-ER 600 mg = 1 tab(s), Oral, q12hr, X 14 day(s), # 28 tab(s), Refills(s) 0, Pharmacy: [facility] #[id number], 168, cm, 09/11/24 9:13:00 EST, Height/Length Dosing, 84.2, kg, 09/11/24 9:13:00 EST, Weight Dosing Start Date: 09/11/24 Stop Date: 09/25/24 Status: Ordered ibuprofen 800 mg oral tablet (18 sources) Nonsteroidal Anti-inflammatory Drug Start: 07-18-2024 take 1 tablet by mouth every six hours ibuprofen 800 mg Tab 800 mg = 1 tab(s), Oral, q6hr, # 60 tab(s), Refills(s) 1 Start Date: 07/18/24 Status: Ordered Quantity: 60.0 Unit: tab(s) Repeat number: 2 Indications: Otitis media, unspecified, unspecified ear; levoFLOXacin 750 mg oral tablet (1 source) Quinolone Antimicrobial Start: 04-10-2025 End: 04-17-2025 take 1 tablet by mouth every twenty-four hours Levaquin 750 mg Tab 750 mg = 1 tab(s), Oral, q24hr, X 7 day(s), # 7 tab(s), Refills(s) 0, Pharmacy: [facility] #[id number], 168, cm, 04/10/25 9:07:00 EDT, Height/Length Dosing, 84.4, kg, 04/10/25 9:07:00 EDT, Weight Dosing Start Date: 04/10/25 Stop Date: 04/17/25 Status: Ordered Quantity: 7.0 Unit: tab(s) Repeat number: 1 Indications: Pneumonia, unspecified organism; Claritin (20 sources) Start: 05-21-2020 Claritin See Instructions, 1 tab po prn allergies, Refills(s) 0 Start Date: 05/21/20 Status: Ordered Repeat number: 1 Start: 05-21-2020 Claritin See I nstructions, 1 tab po prn allergies, Refills(s) 0 Start Date: 05/21/20 Status: Ordered loratadine (Clar itin) 10 MG tablet if needed Active methylPREDNISolone 4 mg oral tablet (1 source) Corticosteroid Start: 09-11-2024 End: 09-17-2024 Medrol Dosepack 4 mg Tab = 1 packet(s), Oral, As Directed, as directed on package labeling, X 6 day(s), # 21 tab(s), Refills(s) 0, Pharmacy: [facility] #[id number], 168, cm, 09/11/24 9:13:00 EST, Height/Length Dosing, 84.2, kg, 09/11/24 9:13:00 EST, Weight Dosing Start Date: 09/11/24 Stop Date: 09/17/24 Status: Ordered Multi Vitamin+ (11 sources) Start: 05-10-2023 Multi Vitamin+ Refill(s) 0 Start Date: 05/10/23 Status: Ordered Repeat number: 1 Start: 05-10-2023 Multi Vitamin+ Refill(s) 0 Start Date: 05/10/23 Status: Ordered olopatadine hydrochloride 0.665 mg/actuat metered dose nasal spray (1 source) Histamine-1 Receptor Inhibitor Start: 04-16-2025 olopatadine nasal 66 5 mcg/inh spray 2 spray(s), Nasal, BID, 30.5 gram, Refill(s) 0, [facility] #[id number], 168, cm, 04/16/25 11:29:00 EDT, Height/Length Dosing, 86.1, kg, 04/16/25 11:29:00 EDT, Weight Dosing Start Date: 04/16/25 Status: Ordered Quantity: 30.5 Unit: g Repeat number: 1 Indications: Chronic sinusitis, unspecified; predniSONE 10 mg oral tablet (6 sources) Start: 04-10-2025 predniSONE 10 mg Tab = 1 -, Oral, As Directed, Take 3 tabs by mouth daily x5 days, then 2 tabs daily x5 days, then 1 tab daily x5 days., # 30 tab(s), Refills(s) 0, Pharmacy: [facility] #[id number], 168, cm, 04/10/25 9:07:00 EDT, Height/Length Dosing, 84.4, kg, 04/10/25 9:07:00 EDT, Weight Dosing Start Date: 04/10/25 Status: Ordered Quantity: 30.0 Unit: tab(s) Repeat number: 1 Indications: Pneumonia, unspecified organism; Start: 09-18-2024 End: 09-23-2024 take 2 tablets by mouth once daily at mealtime predniSONE 20 mg Tab 40 mg = 2 tab(s), Oral, Daily, with food or milk, X 5 day(s), # 10 tab(s), Refills(s) 0, Pharmacy: [facility] #[id number], 168, cm, 09/18/24 17:24:00 EST, Height/Length Dosing, 85, kg, 09/18/24 17:24:00 EST, Weight Dosing Start Date: 09/18/24 Stop Date: 09/23/24 Status: Ordered Start: 03-27-2024 take 60 mg by mouth once daily Prednisone Active 60 MG PO Daily 9 March 27, 2024 3:34pm Start: 12-05-2023 End: 03-27-2024 take 20 mg by mouth once daily Prednisone Discontinued 20 MG PO Daily 5 December 04, 2023 11:00pm March 27, 2024 3:37pm Zinc (13 sources) zinc 100 MG tabl et Active Completed/Discontinued Medications Medication Drug Class(es) Dates Sig (Normalized) Sig (Original) Albuterol (Eqv-ProAir HFA) 90 mcg/inh inhalation aerosol (6 sources) Start: 09-11-2024 take 8 g by inhalation every six hours Albuterol (Eqv-ProAir HFA) 90 mcg/inh inhalation aerosol 180 mcg, 2 inh, Inhalation, q6hr, 8 gm, Refill(s) 0, [facility] #[id number], 168, cm, 09/11/24 9:13:00 EST, Height/Length Dosing, 84.2, kg, 09/11/24 9:13:00 EST, Weight Dosing Start Date: 09/11/24 Status: Ordered Quantity: 8.0 Unit: g Repeat number: 1 Indications: Acute bronchitis, unspecified; Start: 09-11-2024 take 8 g by inhalati on every six hours Albuterol (Eqv-ProAir HFA) 90 mcg/inh inhalation aerosol 180 mcg, 2 inh, Inhalation, q6hr, 8 gm, Refill(s) 0, [facility] #[id number], 168, cm, 09/11/24 9:13:00 EST, Height/Length Dosing, 84.2, kg, 09/11/24 9:13:00 EST, Weight Dosing Start Date: 09/11/24 Status: Ordered ofloxacin 3 mg/ml otic solution (4 sources) Quinolone Antimicrobial Start: 04-10-2025 ofloxa ania Otic 0.3% Karen 5 drop(s), Otic, BID, 5 mL, Refill(s) 0, [facility] #[id number], 168, cm, 04/10/25 9:07:00 EDT, Height/Length Dosing, 84.4, kg, 04/10/25 9:07:00 EDT, Weight Dosing Start Date: 04/10/25 Status: Ordered Quantity: 5.0 Unit: mL Repeat number: 1 Indications: Otitis media, unspecified, unspecified ear; Start: 07-23-2024 End: 08-02-2024 ofloxacin (Floxin) 0.3 % walker c solution Indications: Perforation of left tympanic membrane Administer 5 drops into the left ear in the morning and 5 drops before bedtime. Do all this for 10 days. 5 mL 1 07/23/2024 08/02/2024 Active Problems Active Problems Problem Classification Problem Date Documented Date Episodic/Chronic Abdominal pain (11 sources) Left upper quadrant pain; Translations: [Left upper quadrant pain] Onset: 09-29-2023 Episodic Acute bronchitis (7 sources) Acute bronchitis; Translations: [Acute bronchitis, unspecified] Onset: 09-11-2024 Episodic Anxiety disorders (20 sources) Anxiety; Translations: [Panic attack] Onset: 07-10-2023 06-22-2021 Chronic Chronic obstructive pulmonary disease and bronchiectasis (2 sources) Bronchitis; Translations: [Bronchitis, not specified as acute or chronic] Onset: 04-16-2025 Episodic Inflammation; infection of eye (except that caused by tuberculosis or sexually transmitteddisease) (20 sources) Conjunctivitis; Translations: [Unspecified conjunctivitis] Onset: 07-10-2023 05-21-2020 Episodic Malaise and fatigue (11 sources) Fatigue; Translations: [Other fatigue] Onset: 09-29-2023 Episodic Mycoses (20 sources) Onychomycosis; Translations: [Tinea unguium] Onset: 07-10-2023 04-20-2021 Episodic Neoplasms of unspecified nature or uncertain behavior (1 source) Neoplastic disease; Translations: [Neoplasm of unspecified behavior of bone, soft tissue, and skin] Onset: 09-29-2023 Episodic Nonmalignant breast conditions (13 sources) Fibrocystic disease of breast; Translations: [Diffuse cystic mastopathy of unspecified breast] Onset: 07-10-2023 07-10-2023 Chronic Other and unspecified benign neoplasm (2 sources) Melanocytic nevi of other parts of face; Translations: [Benign neoplasm of skin of other and unspecified parts of face] 11-25-2024 Episodic Other lower respiratory disease (4 sources) Cough; Translations: [Other specified cough] Onset: 09-18-2024 Episodic Other lower respiratory disease (1 source) Wheezing; Translations: [Wheezing] Onset: 09-18-2024 Episodic Other non-traumatic joint disorders (1 source) Pain of left hip joint; Translations: [Pain in left hip] Onset: 09-29-2023 Episodic Other non-traumatic joint disorders (10 sources) Hip pain 09-29-2023 Episodic Other nutritional; endocrine; and metabolic disorders (14 sources) Overweight in adulthood with body mass index of 25 or more but less than 30; Translations: [Body mass index (BMI) 29.0-29.9, adult] Onset: 12-08-2022 Episodic Other nutritional; endocrine; and metabolic disorders (11 sources) Overweight; Translations: [Overweight] Onset: 09-29-2023 Episodic Other screening for suspected conditions (not mental disorders or infectious disease) (6 sources) Encounter for screening mammogram for malignant neoplasm of breast; Translations: [Patient encounter status] Onset: 02-03-2022 Episodic Other skin disorders (10 sources) Skin lesion 09-29-2023 Episodic Other skin disorders (2 sources) Seborrheic keratosis; Translations: [Other seborrheic keratosis] 11-25-2024 Episodic Other skin disorders (2 sources) Lentiginosis; Translations: [Other melanin hyperpigmentation] 11-25-2024 Episodic Other skin disorders (2 sources) Inflamed seborrheic keratosis; Translations: [Inflamed seborrheic keratosis] 11-25-2024 Episodic Other skin disorders (2 sources) Actinic keratosis; Translations: [Actinic keratosis] 11-25-2024 Episodic Other upper respiratory disease (2 sources) Chronic rhinitis; Translations: [Chronic rhinitis] 09-10-2024 Chronic Other upper respiratory infections (20 sources) Acute sinusitis, unspecified; Translations: [Acute sinusitis] Onset: 12-08-2022 Episodic Otitis media and related conditions (20 sources) Perforation of tympanic membrane; Translations: [Unspecified perforation of tympanic membrane, unspecified ear] Onset: 07-18-2024 Episodic Pneumonia (except that caused by tuberculosis or sexually transmitted disease) (4 sources) Mycoplasma pneumonia; Translations: [Pneumonia due to Mycoplasma pneumoniae] Onset: 09-18-2024 Episodic Screening and history of mental health and substance abuse codes (1 source) H/O: Disorder; Translations: [Personal history of nicotine dependence] Onset: 04-10-2025 Episodic Skin and subcutaneous tissue infections (20 sources) Abscess of skin of abdomen; Translations: [Cutaneous abscess of abdominal wall] Onset: 07-10-2023 04-20-2021 Episodic Spondylosis; intervertebral disc disorders; other back problems (11 sources) Low back pain; Translations: [Low back pain, unspecified] Onset: 09-29-2023 Episodic Substance-related disorders (20 sources) Smoker; Translations: [Nicotine dependence, unspecified, uncomplicated] Onset: 07-10-2023 Resolved: 07-10-2023 11-22-2016 Chronic Comment on above: Added secondary to d ocumentation in Social History. 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 09-16-2021 Unclassified (12 sources) Vaccination given 09-16-2021 Viral infection (12 sources) Disease caused by 2019-nCoV 01-25-2022 Past or Other Problems Problem Classification Problem Date Documented Date Episodic/Chronic Immunizations and screening for infectious disease (14 sources) Encounter for immunization; Translations: [Vaccination given] Onset: 07-10-2023 07-10-2023 Episodic Other infections; including parasitic (13 sources) Late effects of other and unspecified infectious and parasitic diseases; Translations: [COVID-19 long hauler] Onset: 07-10-2023 Resolved: 07-10-2023 07-10-2023 Chronic Sexually transmitted infections (not HIV or hepatitis) (20 sources) Human papillomavirus deoxyribonucleic acid test positive, high risk on cervical specimen; Translations: [Cervical high risk human papillomavirus (HPV) DNA test positive] Onset: 07-10-2023 Resolved: 07-10-2023 07-10-2023 Episodic Unclassified (1 source) Post-acute COVID-19; Translations: [Post COVID-19 condition, unspecified] Onset: 05-10-2023 Viral infection (13 sources) Disease caused by 2019-nCoV; Translations: [COVID-19] Onset: 07-10-2023 Resolved: 07-10-2023 07-10-2023 Episodic Results Test Name Value Interpretation Reference Range Facility CT Maxillofacial w/o Contras ton 04-19-2025 CT Maxillofacial w/o Contrast Exam Date/Time: 04/19/2025 09:09 EDT Reason for Exam: J32.9;Sinusitis Report Impression: Left maxillary sinusitis. CT maxillofacial without intravenous contrast medium. History: sinus infection x 3 weeks. Left side is worse, and left ear is plugged x 1 week. C/o congestion and cough as well. Technical factors: CT maxillofacial was obtained and formatted as 2 mm contiguous axial images. Sagittal and coronal reconstruction obtained during postprocessing. Comparison: None. Findings: Bilateral frontal, ethmoid, and sphenoid sinuses patent. Mild mucosal thickening left maxillary sinus. Right maxillary sinus clear. Mastoid air cells well pneumatized bilaterally. Bilateral external auditory canals patent. Nasal septum midline. Bilateral ostiomeatal complexes patent. Bilateral ocular globes, extraocular muscles, optic nerves, retrobulbar fat without anomaly. No fracture. No bone lesion. All CT scans at this facility use dose modulation, iterative reconstruction, and/or weight based dosing when appropriate to reduce radiation dose to as low as reasonably achievable. Technical Comments: Ordering Provider: OWEN CRONIN FINAL REPORT Dictated: 04/19/2025 9:21 am Jamaal Bahena MD Signed (Electronic Signature): 04/19/2025 9:21 am Signed by: Jamaal Bahena MD Transcribed by: THANH Technologist: ANTONIA Yates [facility] Ambulatory Visit Summaryon 0 04-16-2025 Ambulatory Visit Summary Ambulatory Visit Summary ARACELI CATHERINE :1970 Visit Date:04/16/2025 Ambulatory Visit Instructions Your Diagnosis Sinusitis Vaginal yeast infection Your Care Team Attending Physician - AUTUMN OLIVAREZ Primary Care Physician - AUTUMN OLIVAREZ This Is Your Medications List albuterol (Albuterol (Eqv-ProAir HFA) 90 mcg/inh inhalation aerosol) azithromycin (Zithromax 250 mg Tab) benzonatate (Tessalon 100 mg Cap) calcium-vitamin D cyclobenzaprine (cyclobenzaprine 5 mg Tab) doxycycline (doxycycline hyclate 100 mg Cap) fluconazole (Diflucan 150 mg Tab) fluticasone nasal (Flonase 0.05 mg/inh nasal spray) ibuprofen (ibuprofen 800 mg Tab) loratadine (Claritin) multivitamin (Multi Vitamin+) ofloxacin otic (ofloxacin Otic 0.3% Karen) olopatadine nasal (olopatadine nasal 665 mcg/inh spray) predniSONE (predniSONE 10 mg Tab) Procedures Performed Hysterectomy. Discharge Vitals Heart Rate (Peripheral) 80 Respiratory Rate 18 Blood Pressure 110/60 Height 168 cm Height 66 in Weight 86.1 kg Weight 189.818 lb BMI 30.51 What to do next You Need to Complete the Following CT Maxillofacial w/o Contrast, 04/16/25, Routine, Order for future visit, Transport Mode: Wheelchair, Reason: Sinusitis, No, No, Sinusitis, [id number] Medications What How Much When Why Instructions New azithromycin (Zithromax 250 mg Tab) 1 Packets By Mouth As Directed Sinusitis Duration: 5 Days as directed on package labeling Pickup at [facility] #[id number] New doxycycline (doxycycline hyclate 100 mg Cap) 1 Capsules By Mouth 2 times a day Sinusitis Pickup at [facility] #[id number] New fluconazole (Diflucan 150 mg Tab) 1 Tablets By Mouth Every 72 hours Vaginal yeast infection Refills: 1 Pickup at [facility] #[id number] New olopatadine nasal (olopatadine nasal 665 mcg/ inh spray) 2 Sprays Nasal Inhalation 2 times a day Sinusitis Pickup at [facility] #[id number] Unchanged albuterol (Albuterol (Eqv-ProAir HFA) 90 mcg/ inh inhalation aerosol) 2 Inhalation Inhalation Every 6 hours Acute bronchitis Unchanged benzonatate (Tessalon 100 mg Cap) 1 Capsules By Mouth 3 times a day Pneumonia Duration: 14 Days Unchanged calcium-vitamin D See instructions 1 tab po daily Unchanged cyclobenzaprine (cyclobenzaprine 5 mg Tab) 1 Tablets By Mouth 3 times a day BMI 29.0-29.9,adult Overweight Unchanged fluticasone nasal (Flonase 0.05 mg/ inh nasal spray) 2 Sprays Nasal Inhalation Every day prn Unchanged ibuprofen (ibuprofen 800 mg Tab) 1 Tablets By Mouth Every 6 hours Otitis media Unchanged loratadine (Claritin) See instructions 1 tab po prn allergies Unchanged multivitamin (Multi Vitamin+) Unchanged ofloxacin otic (ofloxacin Otic 0.3% Karen) 5 Drops Otic 2 times a day Otitis media Unchanged predniSONE (predniSONE 10 mg Tab) 1 Dose Separtor By Mouth As Directed Pneumonia Take 3 tabs by mouth daily x5 days, then 2 tabs daily x5 days, then 1 tab daily x5 days. Pharmacy Information [facility] #[id number]: [address], [place] [phone] Allergies morphine (Hives) penicillins Problems Ongoing - Any problem that you are currently receiving treatment for. Abnormal skin growth Abscess of skin of abdomen Acute bronchitis Acute sinusitis with symptoms > 10 days Anxiety BMI 29.0-29.9,adult Conjunctivitis Cough COVID-19 COVID-19 long hauler COVID-19 vaccine series started Fatigue Left hip pain Left upper quadrant abdominal pain Low back pain OM (onychomycosis) Otitis media Overweight Panic attack as reaction to stress Pneumonia Smoker Tympanic membrane rupture Viral URI Patient Survey You may receive a survey via text or e-mail asking about your office visit. Please share your experience with us by completing your survey. We appreciate your feedback and thank you for choosing us for your care. Patient Portal You may access all of your results and other medical record information on our secure patient portal. If you are not signed up for this yet, please contact Health Information Management at [phone] to get signed up today. Language Information Language assistance services are available as needed. Normal [facility] Family Medicine Office/Clini c Noteon 04-16-2025 Family Medicine Office/Clinic Note Family Medicine Office/Clinic Note Chief Complaint F/U on cough and congestion HPI Staff complaints of C/O still having productive cough and left ear is plugged Onset: About a couple weeks Characteristics: Goes through coughing spells indicating that cough originates in upper respiratory area, patient states cough is usually productive of a greenish color with chunky consistency OTC tried: Bromfed, flonase bid, claritin, inhaler, finished last prescribed ATB today; started the prednisone (2 x's 5days) portion of prednisone pack; and she is using ear gtts as the issue is centrally connected with sinus and throat. (ENT referral?) History of Present Illness Araceli is a 54 year old female who presents with continued productive cough, severe sinus pressure and congestion, and left ear pain. She completed a course of levaquin, bromfed, prednisone, and albuterol with very minimal improvement in her symptoms. Her left ear is hurting and red and her left sinuses are aching and feel full. Her cough is harsh and productive. Staff HPI reviewed and accurate. Review of Systems PHQ Score Initial Depression Screen Score: 0 SCORE Physical Exam Vitals & Measurements HR: 80(Peripheral) RR: 18 BP: 110/60 SpO2: 92% HT: 168 cm HT: 66 in WT: 189.818 lb WT: 86.1 kg BMI: 30.51 lungs: diminished, posterior lower lobe crackles/rhonchi, exp wheezing maxillary and frontal sinus pain and pressure left TM: bulging, erythematous Assessment/Plan 1. Sinusitis (J32.9: Chronic sinusitis, unspecified) doxy as prescribed olopatadine as prescribed ct sinuses consider ENT referral Ordered: azithromycin, = 1 packet(s), Oral, As Directed, as directed on package labeling, X 5 day(s), # 6 tab(s), Refills(s) 0, Pharmacy: [facility] #[id number], 168, cm, 04/16/25 11:29:00 EDT, Height/Length Dosing, 86.1, kg, 04/16/25 11:29:00 EDT, Weight Dosing doxycycline, 100 mg = 1 cap(s), Oral, BID, # 20 cap(s), Refills(s) 0, Pharmacy: [facility] #[id number], 168, cm, 04/16/25 11:29:00 EDT, Height/Length Dosing, 86.1, kg, 04/16/25 11:29:00 EDT, Weight Dosing olopatadine nasal, 2 spray(s), Nasal, BID, 30.5 gram, Refill(s) 0, [facility] #[id number], 168, cm, 04/16/25 11:29:00 EDT, Height/Length Dosing, 86.1, kg, 04/16/25 11:29:00 EDT, Weight Dosing CT Maxillofacial w/o Contrast 2. Vaginal yeast infection (B37.31: Acute candidiasis of vulva and vagina) diflucan prophylactically Ordered: fluconazole, 150 mg = 1 tab(s), Oral, q72hr, # 4 tab(s), Refills(s) 1, Pharmacy: [facility] #[id number], 168, cm, 04/16/25 11:29:00 EDT, Height/Length Dosing, 86.1, kg, 04/16/25 11:29:00 EDT, Weight Dosing 3. Bronchitis (J40: Bronchitis, not specified as acute or chronic) zpack finish prednisone if still taking Orders: levofloxacin, 750 mg = 1 tab(s), Oral, q24hr, X 7 day(s), # 7 tab(s), Refills(s) 0, Pharmacy: [facility] #[id number], 168, cm, 04/10/25 9:07:00 EDT, Height/Length Dosing, 84.4, kg, 04/10/25 9:07:00 EDT, Weight Dosing Follow-up No qualifying data available Problem List/Past Medical History Ongoing Abnormal skin growth Abscess of skin of abdomen Acute bronchitis Acute sinusitis with symptoms > 10 days Anxiety BMI 29.0-29.9,adult Bronchitis Conjunctivitis Cough COVID-19 COVID-19 long hauler COVID-19 vaccine series started Fatigue Left hip pain Left upper quadrant abdominal pain Low back pain OM (onychomycosis) Otitis media Overweight Panic attack as reaction to stress Pneumonia Smoker Tympanic membrane rupture Viral URI Historical No qualifying data Procedure/Surgical History Hysterectomy. Medications Albuterol (Eqv-ProAir HFA) 90 mcg/inh inhalation aerosol, 180 mcg= 2 inh, Inhalation, q6hr calcium-vitamin D, See Instructions Claritin, See Instructions, Not taking cyclobenzaprine 5 mg Tab, 5 mg= 1 tab(s), Oral, TID, 1 refills Diflucan 150 mg Tab, 150 mg= 1 tab(s), Oral, q72hr, 1 refills doxycycline hyclate 100 mg Cap, 100 mg= 1 cap(s), Oral, BID Flonase 0.05 mg/inh nasal spray, 2 spray(s), Nasal, Daily, 3 refills ibuprofen 800 mg Tab, 800 mg= 1 tab(s), Oral, q6hr, 1 refills Multi Vitamin+ ofloxacin Otic 0.3% Karen, 5 drop(s), Otic, BID olopatadine nasal 665 mcg/inh spray, 2 spray(s), Nasal, BID predniSONE 10 mg Tab, 1 -, Oral, As Directed Tessalon 100 mg Cap, 100 mg= 1 cap(s), Oral, TID Zithromax 250 mg Tab, 1 packet(s), Oral, As Directed Allergies morphine (Hives) penicillins Social History Alcohol Current. Liquor. 1-2 times per month., 07/18/2024 Substance Abuse - Denies Substance Abuse, 05/21/2020 Never., 07/18/2024 Tobacco - No Risk, 12/08/2022 Former smoker, quit more than 30 days ago Tobacco Use:. Never Smokeless Tobacco Use:., 04/16/2025 Family History COPD: Mother. Diabetes mellitus type 2: Mother. Hypertension: Mother. Immunizations Vaccine Date Status Comments diphtheria/pertussis, acel/tetanus adult 10/18/2024 Recorded influenza (more content not included)... Normal [facility] Comment on above: Result Comment: Elec tronically Signed By: AUTUMN OLIVAREZ\.br\Date and Time Signed: 04/16/25 12:49 EDT Ambulatory Visit Summaryon 0 04-10-2025 Ambulatory Visit Summary Ambulatory Visit Summary ARACELI CATHERINE :1970 Visit Date:04/10/2025 Ambulatory Visit Instructions Your Diagnosis BMI 29.0-29.9,adult Former smoker Otitis media Pneumonia Your Care Team Attending Physician - AUTUMN OLIVAREZ Primary Care Physician - AUTUMN OLIVAREZ This Is Your Medications List albuterol (Albuterol (Eqv-ProAir HFA) 90 mcg/inh inhalation aerosol) benzonatate (Tessalon 100 mg Cap) calcium-vitamin D cyclobenzaprine (cyclobenzaprine 5 mg Tab) fluticasone nasal (Flonase 0.05 mg/inh nasal spray) ibuprofen (ibuprofen 800 mg Tab) levofloxacin (Levaquin 750 mg Tab) loratadine (Claritin) multivitamin (Multi Vitamin+) ofloxacin otic (ofloxacin Otic 0.3% Karen) predniSONE (predniSONE 10 mg Tab) Procedures Performed Hysterectomy. Discharge Vitals Heart Rate (Peripheral) 66 Respiratory Rate 20 Blood Pressure 118/80 Height 168 cm Height 66 in Weight 84.4 kg Weight 186.07 lb BMI 29.9 Medications What How Much When Why Instructions New benzonatate (Tessalon 100 mg Cap) 1 Capsules By Mouth 3 times a day Pneumonia Duration: 14 Days Pickup at [facility] #[id number] New levofloxacin (Levaquin 750 mg Tab) 1 Tablets By Mouth Every 24 hours Pneumonia Duration: 7 Days Pickup at [facility] #[id number] New ofloxacin otic (ofloxacin Otic 0.3% Karen) 5 Drops Otic 2 times a day Otitis media Pickup at [facility] #[id number] New predniSONE (predniSONE 10 mg Tab) 1 Dose Separtor By Mouth As Directed Pneumonia Take 3 tabs by mouth daily x5 days, then 2 tabs daily x5 days, then 1 tab daily x5 days. Pickup at [facility] #[id number] Unchanged albuterol (Albuterol (Eqv-ProAir HFA) 90 mcg/ inh inhalation aerosol) 2 Inhalation Inhalation Every 6 hours Acute bronchitis Unchanged calcium-vitamin D See instructions 1 tab po daily Unchanged cyclobenzaprine (cyclobenzaprine 5 mg Tab) 1 Tablets By Mouth 3 times a day BMI 29.0-29.9,adult Overweight Unchanged fluticasone nasal (Flonase 0.05 mg/ inh nasal spray) 2 Sprays Nasal Inhalation Every day prn Unchanged ibuprofen (ibuprofen 800 mg Tab) 1 Tablets By Mouth Every 6 hours Otitis media Unchanged loratadine (Claritin) See instructions 1 tab po prn allergies Unchanged multivitamin (Multi Vitamin+) Pharmacy Information [facility] #[id number]: [address], [place] [phone] Allergies morphine (Hives) penicillins Problems Ongoing - Any problem that you are currently receiving treatment for. Abnormal skin growth Abscess of skin of abdomen Acute bronchitis Acute sinusitis with symptoms > 10 days Anxiety BMI 29.0-29.9,adult Conjunctivitis COVID-19 COVID-19 long hauler COVID-19 vaccine series started Fatigue Left hip pain Left upper quadrant abdominal pain Low back pain OM (onychomycosis) Overweight Panic attack as reaction to stress Smoker Tympanic membrane rupture Viral URI Patient Survey You may receive a survey via text or e-mail asking about your office visit. Please share your experience with us by completing your survey. We appreciate your feedback and thank you for choosing us for your care. Patient Portal You may access all of your results and other medical record information on our secure patient portal. If you are not signed up for this yet, please contact [employer] at [phone] to get signed up today. Language Information Language assistance services are available as needed. Normal [facility] Family Medicine Office/Clini c Noteon 04-10-2025 Family Medicine Office/Clinic Note Family Medicine Office/Clinic Note Chief Complaint Chest congestion, sinus pressure, and ear aches that radiate into the neck HPI Staff complaints of Ongoing Sinus congestion Onset: About 04/04 Characteristics: chest congestion, cough, sinus pressure, ear pain that radiates to the neck OTC tried: mucinex, flonase, vitamin c, ecchenassia, saline nasal spray Pt was seen at 04/04 symptoms. Negative for strep and Covid dx with viral URI w/ cough. was given Bromfed. History of Present Illness Araceli is a 54 year old female who presents for a routine exam for sinus infection and cough. See staff HPI. Review of Systems PHQ Score Initial Depression Screen Score: 0 SCORE Physical Exam Vitals & Measurements HR: 66(Peripheral) RR: 20 BP: 118/80 SpO2: 94% HT: 168 cm HT: 66 in WT: 84.4 kg WT: 186.07 lb BMI: 29.9 lungs: insp and exp wheezes t/o, LLL rhonchi. Cough: harsh and productive throat/TM's: erythematous Assessment/Plan 1. Pneumonia, (J18.9: Pneumonia, unspecified organism)Pneumonia levaquin prednisone fu 1 w if no improvement Ordered: benzonatate, 100 mg = 1 cap(s), Oral, TID, X 14 day(s), # 42 cap(s), Refills(s) 0, Pharmacy: [facility] #[id number], 168, cm, 04/10/25 9:07:00 EDT, Height/Length Dosing, 84.4, kg, 04/10/25 9:07:00 EDT, Weight Dosing levofloxacin, 750 mg = 1 tab(s), Oral, q24hr, X 7 day(s), # 7 tab(s), Refills(s) 0, Pharmacy: [facility] #[id number], 168, cm, 04/10/25 9:07:00 EDT, Height/Length Dosing, 84.4, kg, 04/10/25 9:07:00 EDT, Weight Dosing predniSONE, = 1 -, Oral, As Directed, Take 3 tabs by mouth daily x5 days, then 2 tabs daily x5 days, then 1 tab daily x5 days., # 30 tab(s), Refills(s) 0, Pharmacy: [facility] #[id number], 168, cm, 04/10/25 9:07:00 EDT, Height/Length Dosing, 84.4, kg, ... 2. BMI 29.0-29.9,adult (Z68.29: Body mass index [BMI] 29.0-29.9, adult) stable 3. Former smoker (Z87.891: Personal history of nicotine dependence) stable 4. Cough (R05.9: Cough, unspecified) tessalon 5. Otitis media, (H66.90: Otitis media, unspecified, unspecified ear)Otitis media ofloxacin Ordered: ofloxacin otic, 5 drop(s), Otic, BID, 5 mL, Refill(s) 0, [facility] #[id number], 168, cm, 04/10/25 9:07:00 EDT, Height/Length Dosing, 84.4, kg, 04/10/25 9:07:00 EDT, Weight Dosing Follow-up No qualifying data available Problem List/Past Medical History Ongoing Abnormal skin growth Abscess of skin of abdomen Acute bronchitis Acute sinusitis with symptoms > 10 days Anxiety BMI 29.0-29.9,adult Conjunctivitis Cough COVID-19 COVID-19 long hauler COVID-19 vaccine series started Fatigue Left hip pain Left upper quadrant abdominal pain Low back pain OM (onychomycosis) Otitis media Overweight Panic attack as reaction to stress Pneumonia Smoker Tympanic membrane rupture Viral URI Historical No qualifying data Procedure/Surgical History Hysterectomy. Medications Albuterol (Eqv-ProAir HFA) 90 mcg/inh inhalation aerosol, 180 mcg= 2 inh, Inhalation, q6hr calcium-vitamin D, See Instructions Claritin, See Instructions, Not taking cyclobenzaprine 5 mg Tab, 5 mg= 1 tab(s), Oral, TID, 1 refills Flonase 0.05 mg/inh nasal spray, 2 spray(s), Nasal, Daily, 3 refills ibuprofen 800 mg Tab, 800 mg= 1 tab(s), Oral, q6hr, 1 refills Levaquin 750 mg Tab, 750 mg= 1 tab(s), Oral, q24hr Multi Vitamin+ ofloxacin Otic 0.3% Karen, 5 drop(s), Otic, BID predniSONE 10 mg Tab, 1 -, Oral, As Directed Tessalon 100 mg Cap, 100 mg= 1 cap(s), Oral, TID Allergies morphine (Hives) penicillins Social History Alcohol Current. Liquor. 1-2 times per month., 07/18/2024 Substance Abuse - Denies Substance Abuse, 05/21/2020 Never., 07/18/2024 Tobacco - No Risk, 12/08/2022 Former smoker, quit more than 30 days ago Tobacco Use:. Never Smokeless Tobacco Use:., 04/10/2025 Family History COPD: Mother. Diabetes mellitus type 2: Mother. Hypertension: Mother. Immunizations Vaccine Date Status Comments diphtheria/pertussis, acel/tetanus adult 10/18/2024 Recorded influenza virus vaccine, inactivated - Not Given Patient Refuses measles/mumps/rubella virus vaccine 06/28/2023 Recorded influenza, unspecified formulation 06/05/2023 Given influenza virus vaccine, inactivated 06/05/2023 Recorded influenza virus vaccine, inactivated - Not Given Contraindicated - Do not give per pcp SARS-CoV-2 (COVID-19) mRNA BNT-162b2 vax 10/07/2021 Given SARS-CoV-2 (COVID-19) mRNA BNT-162b2 vax 09/16/2021 Given SARS-CoV-2 (COVID-19) mRNA BNT-162b2 vax - Not Given Parent Or Guardian Refuses wrong order Normal [facility] Comment on above: Result Comment: Elec tronically Signed By: AUTUMN OLIVAREZ\.br\Date and Time Signed: 04/10/25 09:52 EDT Ambulatory Visit Summaryon 0 04-04-2025 Ambulatory Visit Summary Ambulatory Visit Summary VINCEARACELI REILLY Frida :1970 Visit Date:04/04/2025 Ambulatory Visit Instructions Your Diagnosis Viral URI with cough Sore throat Your Care Team Attending Physician - Kallie Nava Primary Care Physician - AUTUMN OLIVAREZ This Is Your Medications List brompheniramine/dextr omethorphan/PSE (Bromfed DM oral syrup) Contact prescribing physician if questions or concerns albuterol (Albuterol (Eqv-ProAir HFA) 90 mcg/inh inhalation aerosol) azithromycin (azithromycin 250 mg Tab 5-day Dose Pack (Z-Vlaentín)) calcium-vitamin D cyclobenzaprine (cyclobenzaprine 5 mg Tab) fluticasone nasal (Flonase 0.05 mg/inh nasal spray) ibuprofen (ibuprofen 800 mg Tab) loratadine (Claritin) multivitamin (Multi Vitamin+) Procedures Performed Hysterectomy. Discharge Vitals Temperature (Tympanic) 36.6 ???C Heart Rate (Peripheral) 82 Blood Pressure 136/86 Height 168 cm Height 66 in Weight 85.3 kg Weight 188.054 lb BMI 30.22 What to do next You Need to Schedule the Following Appointments Follow Up with GRAHAM WOODARD, LOY LEYVA When: Where: Medications What How Much When Why Instructions New brompheniramine/ dextromethorphan/ PSE (Bromfed DM oral syrup) 10 Milliliter By Mouth 4 times a day Sore throat Duration: 5 Days Pickup at [facility] #[id number] Unchanged albuterol (Albuterol (Eqv-ProAir HFA) 90 mcg/ inh inhalation aerosol) 2 Inhalation Inhalation Every 6 hours Acute bronchitis Contact prescribing physician if questions or concerns Unchanged azithromycin (azithromycin 250 mg Tab 5-day Dose Pack (Z-Valentín)) See instructions Wheezing Cough with sputum Take 2 tablets by mouth orally today then 1 tablet daily for the next 4 days Contact prescribing physician if questions or concerns Unchanged calcium-vitamin D See instructions 1 tab po daily Contact prescribing physician if questions or concerns Unchanged cyclobenzaprine (cyclobenzaprine 5 mg Tab) 1 Tablets By Mouth 3 times a day BMI 29.0-29.9,adult Overweight Contact prescribing physician if questions or concerns Unchanged fluticasone nasal (Flonase 0.05 mg/ inh nasal spray) 2 Sprays Nasal Inhalation Every day prn Contact prescribing physician if questions or concerns Unchanged ibuprofen (ibuprofen 800 mg Tab) 1 Tablets By Mouth Every 6 hours Otitis media Contact prescribing physician if questions or concerns Unchanged loratadine (Claritin) See instructions 1 tab po prn allergies Contact prescribing physician if questions or concerns Unchanged multivitamin (Multi Vitamin+) Contact prescribing physician if questions or concerns Pharmacy Information [facility] #[id number]: [address], [place] [phone] Allergies morphine (Hives) penicillins Problems Ongoing - Any problem that you are currently receiving treatment for. Abnormal skin growth Abscess of skin of abdomen Acute bronchitis Acute sinusitis with symptoms > 10 days Anxiety BMI 29.0-29.9,adult Conjunctivitis COVID-19 COVID-19 long hauler COVID-19 vaccine series started Fatigue Left hip pain Left upper quadrant abdominal pain Low back pain OM (onychomycosis) Overweight Panic attack as reaction to stress Smoker Tympanic membrane rupture Viral URI Patient Survey You may receive a survey via text or e-mail asking about your office visit. Please share your experience with us by completing your survey. We appreciate your feedback and thank you for choosing us for your care. Education Materials Pharyngitis Pharyngitis is a sore throat (pharynx). This is when there is redness, pain, and swelling in your throat. Most of the time, this condition gets better on its own. In some cases, you may need medicine. What are the causes? An infection from a virus. ??? An infection from bacteria. ??? Allergies. What increases the risk? Being 5???24 years old. ??? Being in crowded environments. These include: ? Daycares. ? Schools. ? Dormitories. ??? Living in a place with cold temperatures outside. ??? Having a weakened disease-fighting (immune) system. What are the signs or symptoms? Symptoms may vary depending on the cause. Common symptoms include: ??? Sore throat. ??? Tiredness (fatigue). ??? Low-grade fever. ??? Stuffy nose. ??? Cough. ??? Headache. Other symptoms may include: ??? Glands in the neck (lymph nodes) that are swollen. ??? Skin rashes. ??? Film on the throat or tonsils. This can be caused by an infection from bacteria. ??? Vomiting. ??? Red, itchy eyes. ??? Loss of appetite. ??? Joint pain and muscle aches. ??? Tonsils that are temporarily bigger than usual (enlarged). How is this treated? Many times, treatment is not needed. This condition usually gets better in 3???4 days without treatment. If the infectio (more content not included)... Normal [facility] Family Medicine Office/Clini c Noteon 04-04-2025 Family Medicine Office/Clinic Note Family Medicine Office/Clinic Note Chief Complaint sinus congestion HPI Staff 54 year old female presents with sore throat, headache, sinus congestion, ear pain, fatigue, cough for the past week otc: zinc, vitamin c, mucinex, nyquil History of Present Illness I have reviewed and verified the staff HPI to be accurate for this encounter. Portions of this record have been created with voice recognition software. Occasional wrong-word or ???[id number]??? substitutions may have occurred due to the inherent limitations of voice recognition software. 54-year-old female presents with concern for upper respiratory infection. 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 Patient states most bothersome symptom is her sore throat. Rates this discomfort 6 out of 10. She also has a headache, sinus congestion, bilateral ear pain and fatigue. She has occasional cough but no chest pain, wheezing or shortness of breath. She denies any nausea, vomiting or diarrhea. Patient is agreeable to COVID and strep testing today in the office. Review of Systems PHQ Score Initial Depression Screen Score: 0 SCORE ROS negative unless otherwise stated in HPI. Physical Exam Vitals & Measurements T: 36.6 ???C(Tympanic) HR: 82(Peripheral) BP: 136/86 SpO2: 96% HT: 66 in HT: 168 cm WT: 188.054 lb WT: 85.3 kg BMI: 30.22 General: generally ill appearing but in no acute distress Eyes: Pupils equal, round, and reactive to light. Conjunctivae and sclerae normal, and extraocular movements intact Ears: No deformity or lesion of external ear. Canals and TM appear normal bilaterally. TM???s intact, not inflamed, with normal light reflex. Hearing grossly normal to conversational speech no ear drainage Nose: mild nasal mucosa inflammation and edema clear nasal drainage Mouth: Mucous membranes moist. Normal oropharynx, injected posterior pharynx without lesions or exudates. Tongue normal uvula midline, tonsils 1+, no drooling Neck: no adenopathy Lungs: clear to auscultation throughout, no wheezing, no rales. No respiratory distress occasional moist cough respiratory rate 16 Cardio: regular rate and rhythm, no murmur Abdomen: not assessed Musculoskeletal: not assessed Extremity: not assessed Neurologic: not assessed Skin: No rashes, ulcerations, or suspicious lesions Mental Status: Alert and oriented x3. Normal mood and affect Assessment/Plan Mildly ill-appearing, vital signs stable, afebrile, rapid COVID and rapid strep were both negative in the office today. Will send strep screen culture to confirm. Likely viral illness. Time spent on exam, [id number] testing, prescribing medication and review of plan of care was 30 minutes. 1. Viral URI with cough (J06.9: Acute upper respiratory infection, unspecified) Discussed exam and hx are consistent with viral illness. Advised of typical duration. Discussed antibiotics unfortunately do not treat viral illnesses, it will take time to run course- usually 7-14 days. Fluids/rest encouraged, PRN tylenol/ibuprofen for any pain. May use Bromfed DM 10 mL QID PRN for symptomatic tx. Follow up with PCP if not improving over next 3-5 days or significantly worsening symptoms. Patient and/or parent verbalized understanding of tx plan. Ordered: Rapid Strep POC 16529 Strep Screen Culture 2. Sore throat (J02.9: Acute pharyngitis, unspecified) Rapid strep -. Given exam will send strep cx to confirm. No news is good news, if you do not hear from us, strep culture was Negative. If any GAS growth, will rx appropriate antibiotic and notify you. Discussed otherwise consistent with viral illness, typical duration 7-14 days. Fluids/rest, PRN tylenol/ibuprofen for pain and/or fever. May use salt water gargles and otc lozenges for pain. Fu with PCP if cx negative and not improving over next 3-5 days. Seek medical attention immediately for any increased difficulty swallowing, opening mouth, or difficulty managing oral secretions. Patient and/or parent verbalized understanding of tx plan. Ordered: brompheniramine/dextr omethorphan/PSE, 10 mL, Oral, QID for 5 day(s), 200 mL, Refill(s) 0, [facility] #[id number], 168, cm, 04/04/25 17:02:00 EDT, Height/Length Dosing, 85.3, kg, 04/04/25 17:02:00 EDT, Weight Dosing Rapid COVID POC 73060 Rapid Strep POC 37637 Strep Screen Culture Follow-up With When Contact Information GRAHAM WOODARD, AUTUMN, LOY Additional Instructions: Patient Education Pharyngitis, Wzvv-bl-Kaee Viral Respiratory Infection, Oqlh-Ll-Uwso Problem List/Past Medical History Ongoing Abnormal skin growth Abscess of skin of abdomen Acute bronchitis Acute sinusitis with symptoms > 10 days Anxiety BMI 29.0-29.9,adult Conjunctivitis COVID-19 COVID-19 long hauler COVID-19 vaccine se (more content not included)... Normal [facility] Comment on above: Result Comment: Elec tronically Signed By: Kallie Nava\.br\Date and Time Signed: 04/04/25 17:52 EDT No Panel Informationon 11-25 [facility] Family Medicine Office/Clini c Noteon 09-19-2024 Family Medicine Office/Clinic Note Family Medicine Office/Clinic Note Chief Complaint cough, chest tightness HPI Staff 54 year old female presents with productive cough, chest tightness symptoms for about 9 days pt was seen 09/11 for cough but symptoms are not improving History of Present Illness I have reviewed and verified the staff HPI to be accurate for this encounter. Portions of this record have been created with voice recognition software. Occasional wrong-word or ???[id number]-[id number]??? substitutions may have occurred due to the inherent limitations of voice recognition software. 54-year-old female presents with complaints of cough, wheezing and chest tightness. Patient states she was seen on 09/11 for similar symptoms but she is not improving. Patient denies any fever or chills. Patient states she has been continuing her ADLs including work and going to the gym however she continues with moist cough, wheezing tightness and some pain, which is new, in her chest when she coughs. Patient has been using Bromfed-DM as well as Mucinex without any relief of her symptoms. Also started the cefdinir and has not noticed any improvement. Patient is agreeable to chest x-ray today. Patient did test negative for flu A and B on 09/11/2024. Patient denies any history of asthma or COPD however she reports she is an ex-smoker. Review of Systems PHQ Score Initial Depression Screen Score: 0 SCORE ROS negative unless otherwise stated in HPI. Physical Exam Vitals & Measurements T: 36.5 ???C(Oral) HR: 73(Peripheral) BP: 130/84 SpO2: 97% HT: 66 in HT: 168 cm WT: 85 kg WT: 187.393 lb BMI: 30.12 General: Well developed, well nourished, in no acute distress Eyes: not assessed Ears: No deformity or lesion of external ear. Canals and TM appear normal bilaterally. TM???s intact, not inflamed, with normal light reflex. Hearing grossly normal to conversational speech Nose: mild nasal mucosa inflammation and edema Mouth: Mucous membranes moist. Normal oropharynx, and posterior pharynx without lesions or exudates. Tongue normal Neck: no adenopathy Lungs: Normal respiratory effort. Wheezing upon auscultation in upper lobes. Moist cough. Respiratory rate18 SpO2 97% on room air. Cough instigated when asked to take a deep breath. Cardio: regular rate and rhythm, no murmur Abdomen: not assessed Musculoskeletal: not assessed Extremity: not assessed Neurologic: not assessed Skin: No rashes, ulcerations, or suspicious lesions Mental Status: Alert and oriented x3. Normal mood and affect Procedure Patient provided DuoNeb and he held nebulizer solution to assist with wheezing. Patient tolerated procedure well with improvement of her wheezing symptoms. SpO2 remained at 96 to 97% on room air. Assessment/Plan Patient negative for flu A/B on 09/11 did not repeat testing for that today. Based on symptoms and wet read which looks hazy compared to the previous chest x-ray completed (viewed in [facility]) on 10/04/2017. Radiology read is not available at this time. Of note patient has history of COVID with long-haul symptoms. We will treat for walking pneumonia with a Z-Valentín and prednisone 40 mg daily x5 days. Chest xray results available on 09/19/24 and did show small streaky lingular opacity suggestive of bronchopneumonia and/or atelectasis. Time spent reviewing previous records, ordering medications and treatments and reviewing x ray results and discussing plan of care was 35 min. 1. Mycoplasma pneumonia (J15.7: Pneumonia due to Mycoplasma pneumoniae) Awaiting final result from radiologist. Will have her start azithromycin 500 mg today followed by 250 mg daily for the next 4 days. Will also have her take prednisone 40 mg daily with food x 5 days. Will call with x-ray results when available. Follow-up with primary care if symptoms do not improve over the next 3 to 5 days. May also continue with Bromfed-DM previously prescribed scribed as well as Mucinex. 2. Wheezing (R06.2: Wheezing) As above in #1. Prednisone 40 mg daily with food x 5 days to be taken to help with pain in chest with coughing as well as inflammation of her airways. DuoNeb treatment provided at the visit with improvement of her symptoms of wheezing. Ordered: albuterol-ipratropium , 3 mL, Soln-Inh, NEB, Once, Stop date 09/18/24 17:35:00 EST, Routine, Start date 09/18/24 17:35:00 EST azithromycin, See Instructions, Take 2 tablets by mouth orally today then 1 tablet daily for the next 4 days, # 6 tab(s), Refills(s) 0, Pharmacy: [facility] #[id number], 168, cm, 09/18/24 17:24:00 EST, Height/Length Dosing, 85, kg, 09/18/24 17:24:00 EST, Weigh... predniSONE, 40 mg = 2 tab(s), Oral, Daily, with food or milk, X 5 day(s), # 10 tab(s), Refills(s) 0, Pharmacy: [facility] #[id number], 168, cm, 09/18/24 17:24:00 EST, Height/Length Dosing, 85, kg, 09/18/24 17:24:00 EST, Weight Dosing XR Chest 2 Views Cough with sputum (R05.8: Other specified cough) Ordered: albuterol-ipratropium , 3 mL, Soln-Inh, NEB, Once, Stop date 09/18/24 1 (more content not included)... Normal [facility] Comment on above: Result Comment: Elec tronically Signed By: Kallie Nava\.br\Date and Time Signed: 09/19/24 12:17 EST XR Chest 2 Viewson XR Chest 2 Views Exam Date/Time: 09/18/2024 17:42 EST Reason for Exam: wheezing;Cough Report IMPRESSION: MILD LINGULAR INFILTRATE, POSSIBLY BRONCHOPNEUMONIA AND/OR ATELECTASIS EXAM: XR Chest 2 Views DATE: 09/18/2024 5:42 PM CLINICAL HISTORY: Cough, wheezing. COMPARISON: 09/24/2017. TECHNIQUE: Upright PA and lateral radiographs of the chest were obtained. FINDINGS: Small streaky lingular opacity suggestive of bronchopneumonia, but may be atelectasis. There is no other significant pulmonary infiltrate, cardiomegaly, pleural effusion, vascular congestion, pneumothorax, or displaced fractures identified. Ordering Provider: Kiely Dangelo FINAL REPORT Dictated: 09/19/2024 8:27 am Martin Gomez MD Signed (Electronic Signature): 09/19/2024 8:27 am Signed by: Martin Gomez MD Transcribed by: THANH Technologist: ADDISON Yates [facility] Ambulatory Visit Summaryon 0 09-18-2024 Ambulatory Visit Summary Ambulatory Visit Summary ARACELI CATHERINE :1970 Visit Date:09/18/2024 Ambulatory Visit Instructions Your Diagnosis Wheezing Cough with sputum Your Care Team Attending Physician - Kallie Nava Primary Care Physician - AUTUMN OLIVAREZ This Is Your Medications List albuterol (Albuterol (Eqv-ProAir HFA) 90 mcg/inh inhalation aerosol) azithromycin (azithromycin 250 mg Tab 5-day Dose Pack (Z-Valentín)) brompheniramine/dextr omethorphan/PSE (Bromfed DM oral syrup) calcium-vitamin D cyclobenzaprine (cyclobenzaprine 5 mg Tab) fluconazole (Diflucan 150 mg Tab) fluticasone nasal (Flonase 0.05 mg/inh nasal spray) guaifenesin (Mucinex 600 mg Tab-ER) ibuprofen (ibuprofen 800 mg Tab) loratadine (Claritin) multivitamin (Multi Vitamin+) predniSONE (predniSONE 20 mg Tab) Procedures Performed Hysterectomy. Discharge Vitals Temperature (Oral) 36.5 ???C Heart Rate (Peripheral) 73 Blood Pressure 130/84 Height 168 cm Height 66 in Weight 85 kg Weight 187.393 lb BMI 30.12 What to do next You Need to Schedule the Following Appointments Follow Up with AUTUMN OLIVAREZ [facility] When: Medications What How Much When Why Instructions New azithromycin (azithromycin 250 mg Tab 5-day Dose Pack (Z-Valentín)) See instructions Wheezing Cough with sputum Take 2 tablets by mouth orally today then 1 tablet daily for the next 4 days Pickup at [facility] #[id number] New predniSONE (predniSONE 20 mg Tab) 2 Tablets By Mouth Every day Wheezing Cough with sputum Duration: 5 Days with food or milk Pickup at [facility] #[id number] Unchanged albuterol (Albuterol (Eqv-ProAir HFA) 90 mcg/ inh inhalation aerosol) 2 Inhalation Inhalation Every 6 hours Acute bronchitis Unchanged brompheniramine/ dextromethorphan/ PSE (Bromfed DM oral syrup) 10 Milliliter By Mouth 4 times a day as needed for for cough and congestion Acute bronchitis Viral URI Duration: 10 Days Unchanged calcium-vitamin D See instructions 1 tab po daily Unchanged cyclobenzaprine (cyclobenzaprine 5 mg Tab) 1 Tablets By Mouth 3 times a day BMI 29.0-29.9,adult Overweight Unchanged fluconazole (Diflucan 150 mg Tab) 1 Tablets By Mouth Every 7 days Vaginal yeast infection Unchanged fluticasone nasal (Flonase 0.05 mg/ inh nasal spray) 2 Sprays Nasal Inhalation Every day prn Unchanged guaifenesin (Mucinex 600 mg Tab-ER) 1 Tablets By Mouth Every 12 hours Acute bronchitis Duration: 14 Days Unchanged ibuprofen (ibuprofen 800 mg Tab) 1 Tablets By Mouth Every 6 hours Otitis media Unchanged loratadine (Claritin) See instructions 1 tab po prn allergies Unchanged multivitamin (Multi Vitamin+) Pharmacy Information [facility] #[id number]: [address] [place], [place] [phone] Medications and Immunizations Administered Given DuoNeb 2.5 mg-0.5 mg/3 mL Soln-Inh, 3 mL, NEB. For: Wheezing, Cough with sputum Not Given influenza virus vaccine, inactivated, Patient Refuses Allergies morphine (Hives) penicillins Problems Ongoing - Any problem that you are currently receiving treatment for. Abnormal skin growth Abscess of skin of abdomen Acute bronchitis Acute sinusitis with symptoms > 10 days Anxiety BMI 29.0-29.9,adult Conjunctivitis COVID-19 COVID-19 long hauler COVID-19 vaccine series started Fatigue Left hip pain Left upper quadrant abdominal pain Low back pain OM (onychomycosis) Overweight Panic attack as reaction to stress Smoker Tympanic membrane rupture Viral URI Patient Survey You may receive a survey via text or e-mail asking about your office visit. Please share your experience with us by completing your survey. We appreciate your feedback and thank you for choosing us for your care. Trudy [facility] Ambulatory Visit Summaryon 0 09-11-2024 Ambulatory Visit Summary Ambulatory Visit Summary ARACELI CATHERINE :1970 Visit Date:09/11/2024 Ambulatory Visit Instructions Your Diagnosis Viral URI Acute bronchitis Your Care Team Attending Physician - Lisa Jacobo CNP Primary Care Physician - AUTUMN OLIVAREZ This Is Your Medications List albuterol (Albuterol (Eqv-ProAir HFA) 90 mcg/inh inhalation aerosol) brompheniramine/dextr omethorphan/PSE (Bromfed DM oral syrup) cefdinir (cefdinir 300 mg Cap) guaifenesin (Mucinex 600 mg Tab-ER) methylPREDNISolone (Medrol Dosepack 4 mg Tab) Contact prescribing physician if questions or concerns calcium-vitamin D cyclobenzaprine (cyclobenzaprine 5 mg Tab) fluconazole (Diflucan 150 mg Tab) fluticasone nasal (Flonase 0.05 mg/inh nasal spray) ibuprofen (ibuprofen 800 mg Tab) loratadine (Claritin) multivitamin (Multi Vitamin+) Procedures Performed Hysterectomy. Discharge Vitals Temperature (Tympanic) 37 ???C Heart Rate (Peripheral) 78 Blood Pressure 138/86 Height 168 cm Height 66 in Weight 84.2 kg Weight 185.629 lb BMI 29.83 Medications What How Much When Why Instructions New albuterol (Albuterol (Eqv-ProAir HFA) 90 mcg/ inh inhalation aerosol) 2 Inhalation Inhalation Every 6 hours Acute bronchitis Pickup at [facility] #[id number] New brompheniramine/ dextromethorphan/ PSE (Bromfed DM oral syrup) 10 Milliliter By Mouth 4 times a day as needed for for cough and congestion Acute bronchitis Viral URI Duration: 10 Days Pickup at [facility] #[id number] New cefdinir (cefdinir 300 mg Cap) 1 Capsules By Mouth Every 12 hours Acute bronchitis Duration: 7 Days Pickup at [facility] #[id number] New guaifenesin (Mucinex 600 mg Tab-ER) 1 Tablets By Mouth Every 12 hours Acute bronchitis Duration: 14 Days Pickup at [facility] #[id number] New methylPREDNISolone (Medrol Dosepack 4 mg Tab) 1 Packets By Mouth As Directed Acute bronchitis Duration: 6 Days as directed on package labeling Pickup at [facility] #[id number] Unchanged calcium-vitamin D See instructions 1 tab po daily Contact prescribing physician if questions or concerns Unchanged cyclobenzaprine (cyclobenzaprine 5 mg Tab) 1 Tablets By Mouth 3 times a day BMI 29.0-29.9,adult Overweight Contact prescribing physician if questions or concerns Unchanged fluconazole (Diflucan 150 mg Tab) 1 Tablets By Mouth Every 7 days Vaginal yeast infection Contact prescribing physician if questions or concerns Unchanged fluticasone nasal (Flonase 0.05 mg/ inh nasal spray) 2 Sprays Nasal Inhalation Every day prn Contact prescribing physician if questions or concerns Unchanged ibuprofen (ibuprofen 800 mg Tab) 1 Tablets By Mouth Every 6 hours Otitis media Contact prescribing physician if questions or concerns Unchanged loratadine (Claritin) See instructions 1 tab po prn allergies Contact prescribing physician if questions or concerns Unchanged multivitamin (Multi Vitamin+) Contact prescribing physician if questions or concerns Pharmacy Information [facility] #[id number]: [address] [place], [place] [phone] Allergies morphine (Hives) penicillins Problems Ongoing - Any problem that you are currently receiving treatment for. Abnormal skin growth Abscess of skin of abdomen Acute bronchitis Acute sinusitis with symptoms > 10 days Anxiety BMI 29.0-29.9,adult Conjunctivitis COVID-19 COVID-19 long hauler COVID-19 vaccine series started Fatigue Left hip pain Left upper quadrant abdominal pain Low back pain OM (onychomycosis) Overweight Panic attack as reaction to stress Smoker Tympanic membrane rupture Viral URI Patient Survey You may receive a survey via text or e-mail asking about your office visit. Please share your experience with us by completing your survey. We appreciate your feedback and thank you for choosing us for your care. Trudy Conde [facility] Family Medicine Office/Clini c Noteon 09-11-2024 Family Medicine Office/Clinic Note Family Medicine Office/Clinic Note Chief Complaint cough HPI Staff 53 year old female presents with sinus congestion, sob, cough, fever, chills, headache, fatigue since Monday otc: alkaseltzer, flonase History of Present Illness Araceli is a 53 year old female presenting today for productive cough, SOB, sinus congestion, feverish, chills, headache, fatigue. Symptoms started: Monday Meds/remedies trialed: Alkaseltzer; Flonase (routine) Sick contacts: no Recent travel: [place]- flew back on monday Occupation: [employer] w/ [employer] Guo Hx allergies, asthma, COPD, DM, CVD, CKD, HTN: no Smoker: no No known exposure to individuals with COVID-19 or those under investigation. Tested at home for COVID and was negative. Doxy in July for ear. Review of Systems PHQ Score Initial Depression Screen Score: 0 SCORE Constitutional: reports feverish, reports chills, no sweats, reports weakness, reports headache, reports fatigue, reports body aches. Skin: no rash, no skin lesions, no petechiae. Eyes: no eye irritation, no eye drainage, no eye redness. Ears: no ear pain, no __ ear drainage, no_ itching, no_ tinnitus, no popping, no muffled hearing. Nose: no rhinorrhea, mild nasal congestion, no anosmia, no sneezing. Throat/Mouth: reports soreness, no difficulty swallowing, no hoarseness, no dysgeusia, reports post nasal drip. Respiratory: mild, with exertion shortness of breath, moderate, productive cough, reports wheezing. Cardiovascular: no chest pain, no palpitations, no edema. Gastrointestinal: reports nausea, no vomiting, no diarrhea, no abdominal pain. Physical Exam Vitals & Measurements T: 37 ???C(Tympanic) HR: 78(Peripheral) BP: 138/86 SpO2: 95% HT: 66 in HT: 168 cm WT: 84.2 kg WT: 185.629 lb BMI: 29.83 General: well developed, well groomed, well nourished, in no acute distress. Eyes: Conjunctivae normal and sclera clear. Extraocular movement intact. Ears: bilateral external canals intact , no discharge. Bilateral tympanic membrane pearly lucio and intact, light reflex present. No pain with manipulation of tragus and pinna bilaterally. Hearing grossly normal to conversational speech. Nose: mild congestion, mild erythema; red & moist turbinates; no rhinorrhea. Mouth: mucous membranes pink, moist and intact. [place] posterior oropharynx, no palatal inflammation, uvula midline. Neck: supple, no masses palpable. Trachea midline. No palpable cervical adenopathy. Lungs: normal respiratory effort. Lungs with mild end exp wheezes on right A&P bell. Persistent cough. No conversational dyspnea. Cardiovascular: S1 and S2 present, with regular rate and rhythm. No murmur. Skin: [place], warm and dry. No rashes noted on visible/exposed skin. Mental status: alert and oriented x 3. Normal mood and affect, normal behavior for age. Assessment/Plan 1. Viral URI (J06.9: Acute upper respiratory infection, unspecified) Tested negative for the flu and COVID neg at home. No additional testing needed. Reviewed with patient that physical exam and symptoms are consistent with a viral infection. Discussed antibiotics unfortunately do not treat viral illnesses, it will take time to run its course. The first 3-5 days of symptoms are typically the worst (fever, body aches, etc), with cold symptoms lasting 7-14 days. Encouraged fluids to keep secretions thin. Rest. Will prescribe Bromfed PRN for symptom relief. Reviewed dosing and s/e. Mucinex Rxed as well. Continue Flonase. If symptoms last longer than 7 days, excelsior picker Cefdinir from Pharmacy. Patient has been on this medicine before and did fine. Ordered: brompheniramine/dextr omethorphan/PSE, 10 mL, Oral, QID for cough and congestion for 10 day(s), 240 mL, Refill(s) 0, [facility] #[id number], 168, cm, 09/11/24 9:13:00 EST, Height/Length Dosing, 84.2, kg, 09/11/24 9:13:00 EST, Weight Dosing 2. Acute bronchitis (J20.9: Acute bronchitis, unspecified) Discussed viral nature of bronchitis and average duration being 3-6 weeks. Encouraged frequent handwashing, coughing into elbow, etc. Will prescribe albuterol inhaler, Medrol dose pack for wheezing. See above. Ordered: albuterol, 180 mcg, 2 inh, Inhalation, q6hr, 8 gm, Refill(s) 0, [facility] #[id number], 168, cm, 09/11/24 9:13:00 EST, Height/Length Dosing, 84.2, kg, 09/11/24 9:13:00 EST, Weight Dosing brompheniramine/dextr omethorphan/PSE, 10 mL, Oral, QID for cough and congestion for 10 day(s), 240 mL, Refill(s) 0, [facility] #[id number], 168, cm, 09/11/24 9:13:00 EST, Height/Length Dosing, 84.2, kg, 09/11/24 9:13:00 EST, Weight Dosing cefdinir, 300 mg = 1 cap(s), Oral, q12hr, X 7 day(s), # 14 cap(s), Refills(s) 0, Pharmacy: [facility] #[id number], 168, cm, 09/11/24 9:13:00 EST, Height/Length Dosing, 84.2, kg, 09/11/24 9:13:00 EST, Weight Dosing guaifenesin, 600 mg = 1 tab(s), Oral, q12hr, X 14 day(s), # 28 tab(s), Refills(s) 0, Pharmacy: [facility] #[id number], 168, cm, 09/11/24 9:13:00 EST, Height/Length Dosing, 84.2, kg, (more content not included)... [facility] Comment on above: Result Comment: Elec tronically Signed By: Lisa Jacobo CNP R\.br\Date and Time Signed: 09/11/24 09:49 EST Provider Letteron 09-11-2024 Provider Letter Provider Letter [address] [place] [address] [place] [phone] September 11, 2024 ARACELI CATHERINE [address] [place] [address] : 1970 To Whom It May Concern, Please excuse the above patient from work. Date of Illness: 09/11/24-09/12/24 May Return to Work On: 09/13/24 Sincerely, Lisa Jacobo, MSN, ODD PIECE CHECKER, INDUSTRIAL X RAY OPERATOR-C Certified Nurse Practitioner [address] [address] P: [phone] [email or web address] Normal [facility] Medicine Office/Clini c Noteon 07-18-2024 Family Medicine Office/Clinic Note Family Medicine Office/Clinic Note Chief Complaint Left ear pain HPI Staff Patient here with complaints of left ear pain that is going down to her jaw and neck. Onset: Yesterday Characteristics: Throbbing. She states that she works for Dr [employer], and she had the TIP MENDER look at it, and she states that her ear drum is perforated. History of Present Illness Araceli is a 53 year old female who presents for an acute left TM rupture. She sneezed 4 times yesterday and then she felt her left ear pop. 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 She is having throbbing pain in the ear, facial pain/lymph node tenderness, sinus congestion, and dizziness. She did not hit her head, and she was not acutely ill when this occurred. She is having difficulty hearing as well. She does have a vacation coming up next month, and I am concerned about her flying and being in water. She will be referred to Dr Oro. Staff HPI reviewed and accurate. Review of Systems PHQ Score Initial Depression Screen Score: 0 SCORE Physical Exam Vitals & Measurements HR: 88(Peripheral) RR: 18 BP: 144/82 SpO2: 96% HT: 66 in HT: 168.0 cm WT: 84.6 kg WT: 186.511 lb BMI: 29.97 L TM: rupture. blood noted in ear canal Assessment/Plan 1. Tympanic membrane rupture, (H72.90: Unspecified perforation of tympanic membrane, unspecified ear) doxycycline as prescribed monitor for fluid leaking from the ear referral to Dr Heber duvall 800 prn take a decongestant OTC fu 1 week if no improvement Tympanic membrane rupture Or[place] [facility] [place] Otitis media (H66.90: Otitis media, unspecified, unspecified ear) Ordered: doxycycline, 100 mg = 1 cap(s), Oral, Daily, X 10 day(s), # 10 cap(s), Refills(s) 0, Pharmacy: [facility] #[id number], 168, cm, 12/12/24 15:16:00 EST, Height/Length Dosing, 84.6, kg, 07/18/24 15:16:00 EST, Weight Dosing ibuprofen, 800 mg = 1 tab(s), Oral, q6hr, # 60 tab(s), Refills(s) 1 [facility] [place] Vaginal yeast infection (B37.31: Acute candidiasis of vulva and vagina) Ordered: fluconazole, 150 mg = 1 tab(s), Oral, q7day, # 4 tab(s), Refills(s) 1, Pharmacy: [facility] #[id number], 168, cm, 07/18/24 15:16:00 EST, Height/Length Dosing, 84.6, kg, 07/18/24 15:16:00 EST, Weight Dosing Follow-up No qualifying data available Problem List/Past Medical History Ongoing Abnormal skin growth Abscess of skin of abdomen Acute sinusitis with symptoms > 10 days Anxiety BMI 29.0-29.9,adult Conjunctivitis COVID-19 COVID-19 long hauler COVID-19 vaccine series started Fatigue Left hip pain Left upper quadrant abdominal pain Low back pain OM (onychomycosis) Overweight Panic attack as reaction to stress Smoker Tympanic membrane rupture Historical No qualifying data Procedure/Surgical History Hysterectomy. Medications calcium-vitamin D, See Instructions Claritin, See Instructions cyclobenzaprine 5 mg Tab, 5 mg= 1 tab(s), Oral, TID, 1 refills Diflucan 150 mg Tab, 150 mg= 1 tab(s), Oral, q7day, 1 refills doxycycline hyclate 100 mg Cap, 100 mg= 1 cap(s), Oral, Daily Flonase 0.05 mg/inh nasal spray, 2 spray(s), Nasal, Daily, 3 refills ibuprofen 800 mg Tab, 800 mg= 1 tab(s), Oral, q6hr, 1 refills Multi Vitamin+ Allergies morphine (Hives) penicillins Social History Alcohol Current. Liquor. 1-2 times per month., 07/18/2024 Substance Abuse - Denies Substance Abuse, 05/21/2020 Never., 07/18/2024 Tobacco - No Risk, 12/08/2022 Former smoker, quit more than 30 days ago Tobacco Use:. Never Smokeless Tobacco Use:., 07/18/2024 Family History Diabetes mellitus type 2: Mother. Hypertension: Mother. Immunizations Vaccine Date Status Comments measles/mumps/rubella virus vaccine 06/28/2023 Recorded influenza, unspecified formulation 06/05/2023 Given influenza virus vaccine, inactivated 06/05/2023 Recorded influenza virus vaccine, inactivated - Not Given Contraindicated - Do not give per pcp SARS-CoV-2 (COVID-19) mRNA BNT-162b2 vax 10/07/2021 Given SARS-CoV-2 (COVID-19) mRNA BNT-162b2 vax 09/16/2021 Given SARS-CoV-2 (COVID-19) mRNA BNT-162b2 vax - Not Given Parent Or Guardian Refuses wrong order Normal [facility] Comment on above: Result Comment: Elec tronically Signed By: AUTUMN OLIVAREZ\.br\Date and Time Signed: 07/18/24 16:37 EST Reminderson 05-28-2024 Reminders Reminders From: AUTUMN OLIVAREZ To: [facility] - Clinical; Sent: 05/23/2024 10:32:04 EDT Show up: 05/23/2024 10:32:00 EDT Subject: Ambulatory Reminder Due Date/Time: 05/24/2024 10:31:00 EDT robins labs are all normal. Results: Date Result Name Value Ref Range 05/18/2024 9: WBC 5.4 E9/L (4.0 - 11.0) 05/18/2024 9:01 RBC 4.5 E12/L (4.3 - 5.9) 05/18/2024 9:01 HGB 14.8 gm/dL (12.0 - 16.0) 05/18/2024 9:01 Hct 42.3 % (34.0 - 46.0) 05/18/2024 9: MCV 94.1 fL (80.0 - 100.0) 05/18/2024 9:01 MCH 32.9 pg (27.0 - 34.0) 05/18/2024 9:01 MCHC 35.0 gm/dL (31.4 - 36.0) 05/18/2024 9:01 RDW 12.7 % (10.9 - 14.2) 05/18/2024 9:01 Platelet 293.0 E9/L (150.0 - 500.0) 05/18/2024 9:01 MPV 8.0 fL (6.4 - 10.8) 05/18/2024 9:01 Neutro Auto 44.9 % (36.0 - 75.0) 05/18/2024 9:01 Lymph Auto 38.8 % (14.0 - 50.0) 05/18/2024 9:01 Stafford Auto 11.6 % (4.0 - 14.0) 05/18/2024 9:01 Eos Auto 4.2 % (0.0 - 8.0) 05/18/2024 9: Basophil Auto 0.5 % (0.0 - 2.0) 05/18/2024 9:01 Neutro Absolute 2.4 E9/L (2.0 - 7.5) 05/18/2024 9:01 Lymph Absolute 2.1 E9/L (1.0 - 4.0) 05/18/2024 9:01 Stafford Absolute 0.6 E9/L (0.2 - 1.0) 05/18/2024 9:01 Eos Absolute 0.2 E9/L (0.0 - 0.5) 05/18/2024 9:01 Basophil Absolute 0.0 E9/L (0.0 - 0.2) 05/18/2024 9:01 Sed Rate Automated 12 mm/hr (0 - 34) 05/18/2024 9:01 Glucose Lvl 92 mg/dL (55 - 199) 05/18/2024 9:01 BUN 13 mg/dL (5 - 21) 05/18/2024 9:01 Creatinine 0.8 mg/dL (0.5 - 1.3) 05/18/2024 9:01 eGFR 88 mL/min/1.73 m2 (>=59 - ) 05/18/2024 9:01 BUN/Creat Ratio 16 (10 - 20) 05/18/2024 9:01 Sodium Lvl 140 mmol/L (135 - 145) 05/18/2024 9:01 Potassium Lvl 4.2 mmol/L (3.5 - 5.3) 05/18/2024 9:01 Chloride 106 mmol/L (101 - 111) 05/18/2024 9:01 CO2 29 mmol/L (21 - 31) 05/18/2024 9:01 AGAP 9 mEq/L (6 - 16) 05/18/2024 9:01 Calcium Lvl 9.1 mg/dL (8.9 - 11.1) 05/18/2024 9:01 Alk Phos 75 Int._Unit/L (21 - 98) 05/18/2024 9:01 ALT 15 Int._Unit/L (6 - 46) 05/18/2024 9:01 AST 19 Int._Unit/L (5 - 43) 05/18/2024 9:01 Total Protein 6.9 gm/dL (6.0 - 7.8) 05/18/2024 9:01 Protein Total 6.5 gm/dL (6.0-8.5 - ) 05/18/2024 9:01 Albumin Lvl 4.2 gm/dL (3.3 - 5.0) 05/18/2024 9:01 Globulin 2.7 gm/dL (1.4 - 4.0) 05/18/2024 9:01 Globulin 2.7 gm/dL (2.2-3.9 - ) 05/18/2024 9:01 A/G Ratio 1.6 (1.1 - 2.2) 05/18/2024 9:01 A/G Ratio 1.5 (0.7-1.7 - ) 05/18/2024 9:01 Bili Total 0.5 mg/dL (0.0 - 1.1) 05/18/2024 9:01 Iron 107 mcg/dL (35 - 153) 05/18/2024 9:01 TSH 0.97 mcIU/mL (0.34 - 5.60) 05/18/2024 9:01 CRP High Sens 0.56 mg/dL ( - <=0.75) 05/18/2024 9:01 Vitamin B12 Lvl 351 pg/mL (50 - 1,500) 05/18/2024 9:01 Albumin Level 3.8 gm/dL (2.9-4.4 - ) 05/18/2024 9:01 Alpha 1 Glob 0.1 gm/dL (0.0-0.4 - ) 05/18/2024 9:01 Alpha 2 Glob 0.7 gm/dL (0.4-1.0 - ) 05/18/2024 9:01 ZEB Direct Negative (Negative - ) 05/18/2024 9:01 Beta Glob 1.0 gm/dL (0.7-1.3 - ) 05/18/2024 9:01 Gamma Glob 0.9 gm/dL (0.4-1.8 - ) 05/18/2024 9:01 IgA Quant 233 mg/dL (87-352 - ) 05/18/2024 9:01 IgG Quant 996 mg/dL (586-1602 - ) 05/18/2024 9:01 IgM Quant 73 mg/dL (26-217 - ) 05/18/2024 9:01 Immunofix. Result Comment 05/18/2024 9:01 M-Hans Not Observed gm/dL (Not Observed - ) 05/18/2024 9:01 Note Comment LVM advising pt to call office. When returned please advise of provider message below. 2nd attempt lvm to call back Patient returns call, message given and verbalized understanding. Normal [facility] ZEB w/Reflex if POSon 2023 Nuclear Ab Ql (S) Negative Invalid Interpretation Code Negative [facility] Comment on above: Result Comment: Perf ormed at: [facility] [address] [id number] PhD Justin Hutchinson Performed By: #### 1 [id number] ####[facility] [address] [place] [address] TOD and PE, Serumon 05-20-20 24 Albumin [Mass/Vol] 3.8 g/dL Invalid Interpretation Code 2.9-4.4 [facility] Comment on above: Performed By: #### 1 [id number] #### [facility] [address] [place] [address] Albumin/Globulin [Mass ratio] 1.5 {ratio} Invalid Interpretation Code 0.7-1.7 [facility] Comment on above: Performed By: #### 1 [id number] #### [facility] [address] [place] [address] Alpha 1 globulin Elph [Mass/Vol] 0.1 g/dL Invalid Interpretation Code 0.0-0.4 [facility] Comment on above: Performed By: #### 1 [id number] #### [facility] [address] [place] [address] Alpha 2 globulin Elph [Mass/Vol] 0.7 g/dL Invalid Interpretation Code 0.4-1.0 [facility] Comment on above: Performed By: #### 1 [id number] #### [facility] [address] [place] [address] Beta globulin Elph [Mass/Vol] 1.0 g/dL Invalid Interpretation Code 0.7-1.3 [facility] Comment on above: Performed By: #### 1 [id number] #### [facility] [address] [place] [address] Gamma globulin Elph [Mass/Vol] 0.9 g/dL Invalid Interpretation Code 0.4-1.8 [facility] Comment on above: Performed By: #### 1 [id number] #### [facility] [address] [place] [address] Globulin (S) [Mass/Vol] 2.7 g/dL Invalid Interpretation Code 2.2-3.9 [facility] Comment on above: Performed By: #### 1 [id number] #### [facility] [address] [place] [address] IgA [Mass/Vol] 233 mg/dL Invalid Interpretation Code 87-352 [facility] Comment on above: Performed By: #### 1 [id number] #### [facility] [address] [place] [address] IgG [Mass/Vol] 996 mg/dL Invalid Interpretation Code 586-1602 [facility] Comment on above: Performed By: #### 1 [id number] #### [facility] [address] [place] [address] IgM [Mass/Vol] 73 mg/dL Invalid Interpretation Code 26-217 [facility] Comment on above: Performed By: #### 1 [id number] #### [facility] [address] [place] [address] Interpretation IEP [Interp] Comment Invalid Interpretation Code [facility] Comment on above: Result Comment: No m onoclonality detected. Performed By: #### 1 [id number] #### [facility] [address] [place] [address] Laboratory comment Kali (Report) Comment Invalid Interpretation Code [facility] Comment on above: Result Comment: Prot ein electrophoresis scan will follow via computer, mail, or chain mortiser operator delivery. Performed at: [facility] [id number] PhD Justin Hutchinson Performed By: #### 1 [id number] #### [facility] [address] [place] [address] Protein [Mass/Vol] 6.5 g/dL Invalid Interpretation Code 6.0-8.5 [facility] Comment on above: Performed By: #### 1 [id number] #### [facility] [address] [place] [address] Protein.monoclonal Elph [Mass/Vol] Not Observed Invalid Interpretation Code Not Observed [facility] Comment on above: Performed By: #### 1 [id number] #### [facility] [address] [place] [address] CBC w/ Auto Diffon 4 Basophils/100 WBC (Bld) 0.5 % Normal 0.0-2.0 [facility] Comment on above: Performed By: #### 2 [id number] #### [facility] [address] [place] [address] Basophils/Leukocytes Auto (Bld) [Pure # fraction] 0.0 E9/L Normal 0.0-0.2 [facility] Comment on above: Performed By: #### 2 [id number] #### [facility] [address] [place] [address] Eosinophils (Bld) [#/Vol] 0.2 E9/L Normal 0.0-0.5 [facility] Comment on above: Performed By: #### 2 [id number] #### [facility] [address] [place] [address] Eosinophils/100 WBC (Bld) 4.2 % Normal 0.0-8.0 [facility] Comment on above: Performed By: #### 2 [id number] #### [facility] [address] [place] [address] Erythrocyte distribution width (RBC) [Ratio] 12.7 % Normal 10.9-14.2 [facility] Comment on above: Performed By: #### 2 [id number] #### [facility] [address] [place] [address] Hematocrit (Bld) [Volume fraction] 42.3 % Normal 34.0-46.0 [facility] Comment on above: Performed By: #### 2 [id number] #### [facility] [address] [place] [address] Hemoglobin (Bld) [Mass/Vol] 14.8 g/dL Normal 12.0-16.0 [facility] Comment on above: Performed By: #### 2 [id number] #### [facility] [address] [place] [address] Lymphocytes (Bld) [#/Vol] 2.1 E9/L Normal 1.0-4.0 [facility] Comment on above: Performed By: #### 2 [id number] #### [facility] [address] [place] [address] Lymphocytes/100 WBC (Bld) 38.8 % Normal 14.0-50.0 [facility] Comment on above: Performed By: #### 2 [id number] #### [facility] [address] [place] [address] MCH (RBC) [Entitic mass] 32.9 pg Normal 27.0-34.0 [facility] Comment on above: Performed By: #### 2 [id number] #### [facility] [address] [place] [address] MCHC (RBC) [Mass/Vol] 35.0 g/dL Normal 31.4-36.0 [facility] Comment on above: Performed By: #### 2 [id number] #### [facility] [address] [place] [address] MCV (RBC) [Entitic vol] 94.1 fL Normal 80.0-100.0 [facility] Comment on above: Performed By: #### 2 [id number] #### [facility] [address] [place] [address] Monocytes (Bld) [#/Vol] 0.6 E9/L Normal 0.2-1.0 [facility] Comment on above: Performed By: #### 2 [id number] #### [facility] [address] [place] [address] Neutrophils (Bld) [#/Vol] 2.4 E9/L Normal 2.0-7.5 [facility] Comment on above: Performed By: #### 2 [id number] #### [facility] [address] [place] [address] Neutrophils/100 WBC (Bld) 44.9 % Normal 36.0-75.0 [facility] Comment on above: Performed By: #### 2 [id number] #### [facility] [address] [place] [address] Platelet 293.0 E9/L Normal 150.0-500.0 [facility] Comment on above: Performed By: #### 2 [id number] #### [facility] [address] [place] [address] Platelet mean volume (Bld) [Entitic vol] 8.0 fL Normal 6.4-10.8 [facility] Comment on above: Performed By: #### 2 [id number] #### [facility] [address] [place] [address] RBC (Bld) [#/Vol] 4.5 E12/L Normal 4.3-5.9 [facility] Comment on above: Performed By: #### 2 [id number] #### [facility] [address] [place] [address] WBC corrected for nucl RBC Auto (Bld) [#/Vol] 5.4 E9/L Normal 4.0-11.0 [facility] Comment on above: Performed By: #### 2 [id number] #### [facility] [address] [place] [address] CHEMISTRYOrdered By: SYSTEM SYSTEM on 05-18-2024 Albumin [Mass/Vol] 4.2 g/dL Normal 3.3 - 5.0 gm/dL [facility] Albumin/Globulin [Mass ratio] 1.6 {ratio} Normal 1.1 - 2.2 [facility] ALP [Catalytic activity/Vol] 75 [iU]/d Normal 21 - 98 Int._Unit/L [facility] ALT No additional P-5'-P [Catalytic activity/Vol] 15 [iU]/d Normal 6 - 46 Int._Unit/L [facility] Anion gap [Moles/Vol] 9 mmol/L Normal 6 - 16 mEq/L R emisol Chem AST [Catalytic activity/Vol] 19 [iU]/d Normal 5 - 43 Int._Unit/L [facility] Bilirubin [Mass/Vol] 0.5 mg/dL Normal 0.0 - 1 .1 mg/dL [facility] Calcium [Mass/Vol] 9.1 mg/dL Normal 8.9 - 11. 1 mg/dL [facility] Chloride [Moles/Vol] 106 mmol/L Normal 101 - 1 11 mmol/L [facility] CO2 [Moles/Vol] 29 mmol/L Normal 21 - 31 mmol/L [facility] Cobalamin (Vitamin B12) [Mass/Vol] 351 pg/mL Normal 50 - 1500 pg/mL [facility] Creatinine [Mass/Vol] 0.8 mg/dL Normal 0.5 - 1.3 mg/dL [facility] CRP High sensitivity method [Mass/Vol] 0.56 mg/dL Normal <=0.75mg/dL [facility] eGFR 88 mL/min/1.73 m2 Normal >=59mL/min /1 .73 m2 [facility] Globulin (S) [Mass/Vol] 2.7 g/dL Normal 1.4 - 4.0 gm/dL [facility] Glucose [Mass/Vol] 92 mg/dL Normal 55 - 199 mg/dL [facility] Iron [Mass/Vol] 107 ug/dL Normal 35 - 153 mcg/dL [facility] Potassium [Moles/Vol] 4.2 mmol/L Normal 3.5 - 5.3 mmol/L [facility] Protein [Mass/Vol] 6.9 g/dL Normal 6.0 - 7.8 gm/dL [facility] Sodium [Moles/Vol] 140 mmol/L Normal 135 - 145 mmol/L [facility] TSH Qn 0.97 m[IU]/L Normal 0.34 - 5.60 mcIU/mL [facility] Urea nitrogen [Mass/Vol] 13 mg/dL Normal 5 - 21 mg/dL [facility] Urea nitrogen/Creatinine [Mass ratio] 16 mg/mg Normal 10 - 20 [facility] CMPon 05-18-2024 Albumin [Mass/Vol] 4.2 g/dL Normal 3.3-5.0 [facility] Comment on above: Performed By: #### 2 [id number] #### [facility] [address] [place] [address] Albumin/Globulin (S) [Mass conc ratio] 1.6 Normal 1.1-2.2 [facility] Comment on above: Performed By: #### 2 [id number] #### [facility] [address] [place] [address] ALP [Catalytic activity/Vol] 75 Int._Unit/L Normal 21-98 [facility] Comment on above: Performed By: #### 2 [id number] #### [facility] [address] [place] [address] ALT No additional P-5'-P [Catalytic activity/Vol] 15 Int._Unit/L Normal 6-46 [facility] Comment on above: Performed By: #### 2 [id number] #### [facility] [address] [place] [address] Anion gap [Moles/Vol] 9 mmol/L Normal 6-16 [facility] Comment on above: Performed By: #### 2 [id number] #### [facility] [address] [place] [address] AST [Catalytic activity/Vol] 19 Int._Unit/L Normal 5-43 [facility] Comment on above: Performed By: #### 2 [id number] #### [facility] [address] [place] [address] Bilirubin [Mass/Vol] 0.5 mg/dL Normal 0.0-1.1 [facility] Comment on above: Performed By: #### 2 [id number] #### [facility] [address] [place] [address] Calcium [Mass/Vol] 9.1 mg/dL Normal 8.9-11.1 [facility] Comment on above: Performed By: #### 2 [id number] #### [facility] [address] [place] [address] Chloride [Moles/Vol] 106 mmol/L Normal 101-111 [facility] Comment on above: Performed By: #### 2 [id number] #### [facility] [address] [place] [address] CO2 [Moles/Vol] 29 mmol/L Normal 21-31 [facility] Comment on above: Performed By: #### 2 [id number] #### [facility] [address] [place] [address] Creatinine [Mass/Vol] 0.8 mg/dL Normal 0.5-1.3 [facility] Comment on above: Performed By: #### 2 [id number] #### [facility] [address] [place] [address] Globulin (S) [Mass/Vol] 2.7 g/dL Normal 1.4-4.0 [facility] Comment on above: Performed By: #### 2 [id number] #### [facility] [address] [place] [address] Glucose [Mass/Vol] 92 mg/dL Normal 55-199 [facility] Comment on above: Performed By: #### 2 [id number] #### [facility] [address] [place] [address] Potassium [Moles/Vol] 4.2 mmol/L Normal 3.5-5.3 [facility] Comment on above: Performed By: #### 2 [id number] #### [facility] [address] [place] [address] Protein [Mass/Vol] 6.9 g/dL Normal 6.0-7.8 [facility] Comment on above: Performed By: #### 2 [id number] #### [facility] [address] [place] [address] Sodium [Moles/Vol] 140 mmol/L Normal 135-145 [facility] Comment on above: Performed By: #### 2 [id number] #### [facility] [address] [place] [address] Urea nitrogen [Mass/Vol] 13 mg/dL Normal 5-21 [facility] Comment on above: Performed By: #### 2 [id number] #### [facility] [address] [place] [address] Urea nitrogen/Creatinine [Mass ratio] 16 No Units Normal 10-20 [facility] Comment on above: Performed By: #### 2 [id number] #### [facility] [address] [place] [address] CRP HSon 05-18-2024 CRP High sensitivity method [Mass/Vol] 0.56 mg/dL Normal <=0.75 [facility] Comment on above: Performed By: #### 1 [id number] #### [facility] [address] [place] [address] HEMATOLOGYOrdered By: SYSTEM SYSTEM on 05-18-2024 Basophils/100 WBC (Bld) 0.5 % Normal 0.0 - 2.0 % Rem[facility]e Basophils/Leukocytes Auto (Bld) [Pure # fraction] 0.0 E9/L Normal 0.0 - 0.2 E9/L [facility] Eosinophils (Bld) [#/Vol] 0.2 E9/L Normal 0.0 - 0.5 E9/L [facility] Eosinophils/100 WBC (Bld) 4.2 % Normal 0.0 - 8.0 % [facility] Erythrocyte distribution width (RBC) [Ratio] 12.7 % Normal 10.9 - 14.2 % [facility] Hematocrit (Bld) [Volume fraction] 42.3 % Normal 34.0 - 46.0 % [facility] Hemoglobin (Bld) [Mass/Vol] 14.8 g/dL Normal 12.0 - 16.0 gm/dL [facility] Lymphocytes (Bld) [#/Vol] 2.1 E9/L Normal 1.0 - 4.0 E9/L [facility] Lymphocytes/100 WBC (Bld) 38.8 % Normal 14.0 - 50.0 % [facility] MCH (RBC) [Entitic mass] 32.9 pg Normal 27.0 - 34.0 pg [facility]e MCHC (RBC) [Mass/Vol] 35.0 g/dL Normal 31.4 - 36.0 gm/dL [facility] MCV (RBC) [Entitic vol] 94.1 fL Normal 80.0 - 100.0 fL [facility] Monocytes (Bld) [#/Vol] 0.6 E9/L Normal 0.2 - 1.0 E9/L [facility] Monocytes/100 WBC (Bld) 11.6 % Normal 4.0 - 14.0 % [facility] Neutrophils (Bld) [#/Vol] 2.4 E9/L Normal 2.0 - 7.5 E9/L [facility] Neutrophils/100 WBC (Bld) 44.9 % Normal 36.0 - 75.0 % [facility] Platelet 293.0 E9/L Normal 150.0 - 500.0 E9/L [facility] Platelet mean volume (Bld) [Entitic vol] 8.0 fL Normal 6.4 - 10.8 fL [facility] RBC (Bld) [#/Vol] 4.5 E12/L Normal 4.3 - 5.9 E12/L [facility] WBC corrected for nucl RBC Auto (Bld) [#/Vol] 5.4 E9/L Normal 4.0 - 11.0 E9/L [facility] HEMATOLOGYOrdered By: Ashley Pearson on 05-18-2024 ESR (Bld) [Velocity] 12 mm/h Normal 0 - 34 mm/hr FT [facility] HemeAutoSS Ironon 05-18-2024 Iron [Mass/Vol] 107 microgram/dL Normal 35-153 [facility] Comment on above: Performed By: #### 2 [id number] #### [facility] [address] [place] [address] Sed Rate Automatedon 024 ESR (Bld) [Velocity] 12 mm/h Normal 0-34 [facility] Comment on above: Performed By: #### 1 [id number] #### [facility] [address] [place] [address] TSH With T4fr Reflexon 05-18 TSH Qn 0.97 m[IU]/L Normal 0.34-5.60 [facility] Comment on above: Performed By: #### 1 [id number] #### [facility] [address] [place] [address] Vit B12on 05-18-2024 Cobalamin (Vitamin B12) [Mass/Vol] 351 pg/mL Normal 50-1500 [facility] Comment on above: Performed By: #### 2 [id number] #### [facility] [address] [place] [address] eGFRon 05-18-2024 eGFR 88 mL/min/1.73 m2 Normal >=59 [facility] Comment on above: Performed By: #### 1 [id number] #### [facility] [address] [place] [address] Reminderson 10-16-2023 Reminders - From: AUTUMN OLIVAREZ To: [facility] - Clinical; Sent: 10/16/2023 08:57:12 EDT Show up: 10/16/2023 08:55:00 EDT Subject: Ambulatory Reminder Due Date/Time: 10/17/2023 08:54:00 EDT I reviewed the abdominal CT, left hip, and lumbar spine imaging reports. The L. hip xray is completely normal per radiographic imaging. The abdominal CT was unremarkable for an intraabdominal process. No abnormalities identified on the abdominal CT. The lumbar spine imaging revealed mild degenerative changes - changes that generally come about with age/wear and tear. If she's interested, I could send her to pain management, and/or physical therapy for further evaluation. Results: Date Result Type Result Name 10/13/2023 18:[address] Abdomen w/ Contrast Spoke with pt regarding provider message below. Advised of CT results and options to go to PT or PM. Pt states understanding and declines any questions, concerns, and referrals. Normal [facility] CT Abdomen w/ Contraston CT Abdomen w/ Contrast Exam Date/Time: 10/13/2023 16:44 EST Reason for Exam: LUQ abdominal pain;Other (please specify) Report IMPRESSION: NO ACUTE OR SIGNIFICANT INTRA-ABDOMINAL PROCESS IDENTIFIED. EXAM: CT Abdomen w/ Contrast DATE: 10/13/2023 3:54 PM CLINICAL HISTORY: LUQ abdominal pain. COMPARISON: None available. TECHNIQUE: Spiral imaging was obtained of the abdomen after the uneventful infusion of approximately 100 mL of Isovue 300 contrast. Oral contrast was used for bowel opacification. All CT scans at this facility use dose modulation, iterative reconstruction, and/or weight based dosing when appropriate to reduce radiation dose to as low as reasonably achievable. Unless otherwise stated, incidental findings identified in this report do not require routine follow-up imaging. FINDINGS: Liver: No enlargement, significant fatty infiltration, suspicious mass or lesion. Biliary: The nearly contracted gallbladder is otherwise unremarkable. No bile duct dilation. Pancreas: Unremarkable. No mass or duct dilation. Spleen: Unremarkable. Adrenals: Unremarkable. Kidneys: Unremarkable. No mass or significant urinary tract calculi. GI tract: No abnormal dilation or wall thickening superficial venous segments. Lymph nodes: No pathologically enlarged lymph nodes. Mesentery/peritoneum: No ascites or mass and visualized segments. Retroperitoneum: No inflammatory changes or mass of the visualized segments. Vasculature: No aneurysm or dissection of the visualized segments. Minimal atherosclerotic plaquing. Musculoskeletal: No acute osseous findings. Mild to moderate degenerative changes, predominantly of the lower lumbar facet joints. Lower thorax: Noncontributory. Report Ordering Provider: OWEN CRONIN FINAL REPORT Dictated: 10/13/2023 6:40 pm Martin Gomez MD Signed (Electronic Signature): 10/13/2023 6:40 pm Signed by: Martin Gomez MD Transcribed by: THANH Technologist: MELVIN Technical Comments GFR (mL/min/1/73m2) na Contrast: Isovue 300 Contrast amount in ml's: 100 Oral contrast amount in ml's: 900 Normal [facility] Consent for Treatmenton Consent for Treatment [id number] .00TIFF Normal [facility] XR Hip 2-3 Views Lefton XR Hip 2-3 Views Left Exam Date/Time: 10/13/2023 16:48 EST Reason for Exam: M25.552;Hip pain Report IMPRESSION: NEGATIVE LEFT HIP. EXAM: XR Hip 2-3 Views Left DATE: 10/13/2023 4:47 PM CLINICAL HISTORY: Hip pain, M25.552. COMPARISON: CT abdomen with contrast from earlier 10/13/2023. TECHNIQUE: AP and lateral radiographs of the left hip are obtained. FINDINGS: There is no displaced fracture, dislocation, significant degenerative changes, evidence of avascular necrosis, or other findings of concern identified. Contrast is noted within the rectum and urinary tract from the earlier CT. Ordering Provider: OWEN CRONIN FINAL REPORT Dictated: 10/13/2023 6:44 pm Martin Gomez MD Signed (Electronic Signature): 10/13/2023 6:44 pm Signed by: Martin Gomez MD Transcribed by: THANH Technologist: MELVIN Technical Comments Radiation Dose: Ka,r in mGy = na DAP = na Normal [facility] XR Spine Lumbosacral Minimum 4 Viewson 10-13-2023 XR Spine Lumbosacral Minimum 4 Views Exam Date/Time: 10/13/2023 17:03 EST Reason for Exam: M54.50;Back pain Report IMPRESSION: MILD LUMBAR SPONDYLOSIS. EXAM: XR Spine Lumbosacral Minimum 4 Views DATE: 10/13/2023 4:54 PM CLINICAL HISTORY: Back pain, M54.50. COMPARISON: Abdomen CT with contrast from earlier 10/13/2023. TECHNIQUE: AP, lateral, oblique, coned down AP and lateral views of the lumbar spine were obtained. FINDINGS: Mild to moderate hypertrophic facet changes of the lower lumbar levels is present. There is no compression, fracture, significant disc space narrowing, subluxation, worrisome bone destruction, or other findings of concern identified. The sacroiliac joints are unremarkable. Contrast is noted within the bowel and urinary tract from the earlier CT. Ordering Provider: OWEN CRONIN FINAL REPORT Dictated: 10/13/2023 6:46 pm Martin Gomez MD Signed (Electronic Signature): 10/13/2023 6:46 pm Signed by: Martin Gomez MD Transcribed by: THANH Technologist: NONA Technical Comments Radiation Dose: Ka,r in mGy = na DAP = na Normal [facility] Family Medicine Office/Clini c Noteon 10-02-2023 Family Medicine Office/Clinic Note Chief Complaint vomiting, weak, tired, HPI Staff 53 year old female presents with weak, vomiting, fever, chills, headache, pt would like flu test. Pt test negative for covid on 10/01 Symptoms started yesterday. History of Present Illness I have reviewed and verified the staff HPI to be accurate for this encounter. Portions of this record have been created with voice recognition software. Occasional wrong-word or ?zorzl-f-yrpe? substitutions may have occurred due to the inherent limitations of voice recognition software. 53-year-old female without significant medical history who presents to convenient care today with chief complaint of nausea vomiting and generalized fatigue. Patient states that symptom onset was yesterday afternoon. States that yesterday morning she went out to breakfast with her father. States that they ate the same thing. States that her father is not sick. States that around noon yesterday afternoon she developed nausea and just generally did not feel well. She states she did not eat much during the day due to that nausea states after dinnertime she had a total of 3 episodes of vomiting which were honestly mostly dry heaving as she states she had nothing in her stomach. She states since then she has been able to tolerate fluids and states she did eat some crackers this morning, and was able to keep that down. States overall she just does not have an appetite and still feels nauseated. She denies any chest pain shortness of breath or difficulty breathing with her symptoms. States a little bit of a headache but denies any sore throat. Denies any known flu exposure. States yesterday with the development of certain symptoms she did take a home COVID-19 test that was negative denies any COVID exposure that she is aware of. She denies any runny stuffy nose cough or cold-like symptoms or significant nasal congestion with her symptoms. She denies any diarrhea with her symptoms denies any true abdominal pain. Denies any black or tarry stools or blood in the stool. She has no other concerns at this time. Medication allergies to morphine and penicillin. Review of Systems PHQ Score Initial Depression Screen Score: 0 SCORE ROS negative unless otherwise stated in HPI. Physical Exam Vitals & Measurements T: 36.9 ?C(Temporal Artery) HR: 78(Peripheral) RR: 16 BP: 128/66 SpO2: 97% HT: 66 in HT: 168 cm WT: 83 kg WT: 182.6 lb BMI: 29.41 General: Well developed, well nourished, in no acute distress Eyes: Bilateral conjunctiva within normal limits no injection Ears: not assessed Nose: not addressed Mouth: Moist mucous membranes. Uvula is midline. No acute tonsillar erythema edema or exudate. No signs of peritonsillar abscess. No trismus or drooling. Neck: not assessed Lungs: Lung sounds are clear bilaterally. No wheezing rhonchi or crackles on exam. Cardio: S1, S2, regular rhythm. No murmurs gallops or rubs. Abdomen: Bowel sounds are present x 4 quadrants. Abdomen is soft, nontender, nondistended. No rigidity rebound or guarding on exam. Musculoskeletal: not assessed Extremity: Patient walked back into convenient care on her own without gait abnormality. Neurologic: not assessed Skin: not assessed Mental Status: Alert and oriented x3. Normal mood and affect Assessment/Plan I spoke with patient in regards to her symptoms she did request an office influenza testing which was negative. Discussed that it is possible she picked up a viral GI bug of some kind unsure where she would have picked this up from. Patient does not currently have any concern in regards to food poisoning states she ate the same thing as her father yesterday at breakfast and he is fine without symptoms. Discussed with patient if she would develop diarrhea or concern for this that I am happy to order stool cultures and she can call us back for that order if needed. Otherwise I we will plan to send Zofran, nausea medication 1 tablet dissolved on the tongue every 8 hours as needed for nausea or vomiting over the next 3 days. Discussed to refrain from use of myxk-tvs-qrksnud Pepto-Bismol or Imodium if she were to develop diarrhea as with viral illness we want this to run its course. She will continue fluids and small amounts until tolerated follow by bland diet in which we discussed in regards to bananas rice applesauce and toast which patient agrees and understands plan of care. Will return if needed. Would seek ER for reevaluation for any severely worsening symptoms. 1. Viral gastroenteritis (A08.4: Viral intestinal infection, unspecified) Exam and history consistent with viral gastroenteritis. This illness is self-limiting, no antibiotics necessary at this time. The majority of viral GI cases resolve before 7 days, with the worst of symptoms being within the first 72 hours. Do not take Pepto or Imodium, as this illness needs to run its course. Fluids/rest. Will treat with zofran odt q8 hours x 3 days to help with vomiting, therefore preventing dehydration. Small, bland meals (more content not included)... Normal [facility] Comment on above: Result Comment: Elec tronically Signed By: Christiano VALERIO, Hiro Garner\.br\Date and Time Signed: 10/02/23 21:09 EST Insurance Correspondenceon 0 10-02-2023 Insurance Correspondence [id number]# 1.00TIFF [facility] Patient Educationon 10-02-19 24 Patient Education Gastroenterology Viral Gastroenteritis, Adult Viral gastroenteritis is also known as the stomach flu. This condition may affect your stomach, small intestine, and large intestine. It can cause sudden watery diarrhea, fever, and vomiting. This condition is caused by many different viruses. These viruses can be passed from person to person very easily (are contagious). Diarrhea and vomiting can make you feel weak and cause you to become dehydrated. You may not be able to keep fluids down. Dehydration can make you tired and thirsty, cause you to have a dry mouth, and decrease how often you urinate. It is important to replace the fluids that you lose from diarrhea and vomiting. What are the causes? Gastroenteritis is caused by many viruses, including rotavirus and norovirus. Norovirus is the most common cause in adults. You can get sick after being exposed to the viruses from other people. You can also get sick by: ? Eating food, drinking water, or touching a surface contaminated with one of these viruses. ? Sharing utensils or other personal items with an infected person. What increases the risk? You are more likely to develop this condition if you: ? Have a weak body defense system (immune system). ? Live with one or more children who are younger than 2 years. ? Live in a correction. ? Travel on cruise ships. What are the signs or symptoms? Symptoms of this condition start suddenly 1?3 days after exposure to a virus. Symptoms may last for a few days or for as long as a week. Common symptoms include watery diarrhea and vomiting. Other symptoms include: ? Fever. ? Headache. ? Fatigue. ? Pain in the abdomen. ? Chills. ? Weakness. ? Nausea. ? Muscle aches. ? Loss of appetite. How is this diagnosed? This condition is diagnosed with a medical history and physical exam. You may also have a stool test to check for viruses or other infections. How is this treated? This condition typically goes away on its own. The focus of treatment is to prevent dehydration and restore lost fluids (rehydration). This condition may be treated with: ? An oral rehydration solution (ORS) to replace important salts and minerals (electrolytes) in your body. Take this if told by your health care provider. This is a drink that is sold at pharmacies and retail stores. ? Medicines to help with your symptoms. ? Probiotic supplements to reduce symptoms of diarrhea. ? Fluids given through an IV, if dehydration is severe. Older adults and people with other diseases or a weak immune system are at higher risk for dehydration. Follow these instructions at home: Eating and drinking ? Take an ORS as told by your health care provider. ? Drink clear fluids in small amounts as you are able. Clear fluids include: ? Water. ? Ice chips. ? Diluted fruit juice. ? Low-calorie sports drinks. ? Drink enough fluid to keep your urine pale yellow. ? Eat small amounts of healthy foods every 3?4 hours as you are able. This may include whole grains, fruits, vegetables, lean meats, and yogurt. ? Avoid fluids that contain a lot of sugar or caffeine, such as energy drinks, sports drinks, and soda. ? Avoid spicy or fatty foods. ? Avoid alcohol. General instructions ? Wash your hands often, especially after having diarrhea or vomiting. If soap and water are not available, use hand package delivery driver. ? Make sure that all people in your household wash their hands well and often. ? Take vnou-rtd-snlnwtv and prescription medicines only as told by your health care provider. ? Rest at home while you recover. ? Watch your condition for any changes. ? Take a warm bath to relieve any burning or pain from frequent diarrhea episodes. ? Keep all follow-up visits. This is important. Contact a health care provider if you: ? Cannot keep fluids down. ? Have symptoms that get worse. ? Have new symptoms. ? Feel light-headed or dizzy. ? Have muscle cramps. Get help right away if you: ? Have chest pain. ? Have trouble breathing or you are breathing very quickly. ? Have a fast heartbeat. ? Feel extremely weak or you faint. ? Have a severe headache, a stiff neck, or both. ? Have a rash. ? Have severe pain, cramping, or bloating in your abdomen. ? Have skin that feels cold and clammy. ? Feel confused. ? Have pain when you urinate. ? Have signs of dehydration, such as: ? Dark urine, very little urine, or no urine. ? Cracked lips. ? Dry mouth. ? Sunken eyes. ? Sleepiness. ? Weakness. ? Have signs of bleeding, such as: ? Seeing blood in your vomit. ? Having vomit that looks like coffee grounds. ? Having bloody or black stools or stools that look like tar. These symptoms may be an emergency. Get help right away. Call 911. ? Do not wait to see if the symptoms will go away. ? Do not drive yourself to the hospital. Summary ? V (more content not included)... Normal [facility] Patient Letter FTon 2023 Patient Letter [facility] [address], [place] [address] [id number] October 02, 2023 ARACELI VINCE [id number] [facility] [address] : 1970 Please excuse ARACELI CATHERINE from work . Date and/or Time of Absence: From: 10/02/23 To: 10/04/23 May return to work on: 10/04/23 Restrictions: None Comments: Please excuse due to an acute illness. Provider Signature: Hiro Alvarado PA-C Physician Machine Load Clerk [address] [place] [address] [facility] Physician Referralon 024 Physician Referral [id number] .00TIFF [facility] Ambulatory Visit Summaryon 0 09-29-2023 Ambulatory Visit Summary ARACELI CATHERINE :1970 Visit Date:09/29/2023 Ambulatory Visit Instructions Your Diagnosis Left upper quadrant abdominal pain Left hip pain Low back pain Abnormal skin growth, Abnormal skin growth Fatigue BMI 29.0-29.9,adult Overweight Your Care Team Attending Physician - GRAHAM WOODARD, AUTUMN Primary Care Physician - LAWSON FELIPE CNP This Is Your Medications List calcium-vitamin D cyclobenzaprine (cyclobenzaprine 5 mg Tab) fluticasone nasal (Flonase 0.05 mg/inh nasal spray) loratadine (Claritin) multivitamin (Multi Vitamin+) Procedures Performed Hysterectomy. Discharge Vitals Temperature (Temporal Artery) 36.8 ?C Heart Rate (Peripheral) 68 Respiratory Rate 16 Blood Pressure 120/78 Height 168 cm Height 66 in Weight 83 kg Weight 182.6 lb BMI 29.41 What to do next You Need to Complete the Following ZEB w/Reflex if POS, Blood, Routine collect, 09/29/23, Order for future visit, Lab Collect, BMI 29.0-29.9,adult Invalid Interpretation Code Overweight, Print Label By Order Location\.br \ CBC w/ Auto Diff, Blood, Routine collect, 09/29/23, Order for future visit, Lab Collect, BMI 29.0-29.9,ad roxann [facility] Medicine Office/Clini c Noteon 09-29-2023 Family Medicine Office/Clinic Note HPI Staff Pt is a 53 y.o. female presenting for LQ pain x1 month. BRAEDEN 05/10/23 discuss vaccine exemption Needs: Pap: hysterectomy total Colon Cancer Screening: DUE, states she has never had this done, denies family hx of colon cancer, denies concerning changes in bowel habits, blood in stool Pain characteristics: Pain location: LUQ discomfort started 4-6 weeks ago, now runs along left side of abdomen, feel hips are out of place Intensity:2/10 Medication used: cut back on coffee, eating very little dairy, stopped eating nuts States my urine is fine. History of Present Illness Araceli is a 53 year old female who presents with a variety of complaints. The staff HPI was reviewed and is accurate. 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. Left sided abdominal/hip pain: she reports she has constant aching pain in the left upper abdominal quadrant and left hip. She reports she has gone to the chiropractor thinking her hips were out of alignment - however, this did not help her pain. She denies complications with stool, nausea, vomiting, or discoloration to the skin. She reports the pain is generally a 2/10, but has gotten up to a 10/10. Unclear etiology - long discussion regarding diagnostics, differentials, and treatment. Left eyebrow abnormal skin growth: she mentions she's had this scabbed-like area in her left eyebrow for 2 years. If she pulls it off, it grows right back. Fatigue: reports she's tired all the time. Review of Systems PHQ Score Initial Depression Screen Score: 0 SCORE Physical Exam Vitals & Measurements T: 36.8 ?C(Temporal Artery) HR: 68(Peripheral) RR: 16 BP: 120/78 SpO2: 98% HT: 66 in HT: 168 cm WT: 83 kg WT: 182.6 lb BMI: 29.41 General: alert, no acute distress ENMT: TM's clear, oral mucosa moist, no pharyngeal erythema or exudate Cardiovascular: regular rate and rhythm, normal peripheral perfusion Respiratory: Lungs CTA, respirations non labored Extremities: no deformity, no trauma Neurological: oriented x 4, LOC appropriate for age, CN II-XII intact, motor strength equal & normal bilaterally, sensation equal & normal bilaterally, speech normal Abdomen: no abdominal mass palpated. No changes in skin color over area. Left hip pain with ambulation. Left eyebrow: brown, raised, irregular growth noted. Assessment/Plan 1. Left upper quadrant abdominal pain (R10.12: Left upper quadrant pain) CT abd Consider GI labs Ordered: CT Abdomen w/ Contrast 2. Left hip pain (M25.552: Pain in left hip) XR ordered cyclobenzaprine prn Ordered: XR Hip 2-3 Views Left 3. Low back pain (M54.50: Low back pain, unspecified) xray ordered Ordered: XR Spine Lumbosacral Minimum 4 Views 4. Abnormal skin growth, (D49.2: Neoplasm of unspecified behavior of bone, soft tissue, and skin)Abnormal skin growth referral to [facility] derm Ordered: [facility] External Ambulatory Referral 5. Fatigue (R53.83: Other fatigue) Labs 6. BMI 29.0-29.9,adult (Z68.29: Body mass index [BMI] 29.0-29.9, adult) Continue to monitor Ordered: cyclobenzaprine, 5 mg = 1 tab(s), Oral, TID, # 30 tab(s), Refills(s) 1, Pharmacy: [facility] #[id number], 168, cm, 09/29/23 15:08:00 EST, Height/Length Dosing, 83, kg, 09/29/23 15:08:00 EST, Weight Dosing ZEB w/Reflex if POS C-Reactive Protein High Sensitivity CBC w/ Auto Diff Comprehensive Metabolic Panel TOD and PE, Serum Iron Level Sedimentation Rate Automated TSH With T4fr Reflex Vitamin B12 Level 7. Overweight (E66.3: Overweight) Continue to monitor Ordered: cyclobenzaprine, 5 mg = 1 tab(s), Oral, TID, # 30 tab(s), Refills(s) 1, Pharmacy: [facility] #[id number], 168, cm, 09/29/23 15:08:00 EST, Height/Length Dosing, 83, kg, 09/29/23 15:08:00 EST, Weight Dosing ZEB w/Reflex if POS C-Reactive Protein High Sensitivity CBC w/ Auto Diff Comprehensive Metabolic Panel TOD and PE, Serum Iron Level Sedimentation Rate Automated TSH With T4fr Reflex Vitamin B12 Level Follow-up No qualifying data available Patient Education Joint Pain Acute Pain, Adult Problem List/Past Medical History Ongoing Abnormal skin growth Abscess of skin of abdomen Acute sinusitis with symptoms > 10 days Anxiety BMI 29.0-29.9,adult Conjunctivitis COVID-19 COVID-19 long hauler COVID-19 vaccine series started Fatigue Left hip pain Left upper quadrant abdominal pain Low back pain OM (onychomycosis) Overweight Panic attack as reaction to stress Smoker Historical No qualifying data Procedure/Surgical History Hysterectomy. Medications calcium-vitamin D, See Instructions Claritin, See Instructions, Not taking: pt states not taking this anymore cyclobenzaprine 5 mg Tab, 5 mg= 1 tab(s), Oral, TID, 1 refills Flonase 0.05 mg/inh nasal spray, 2 spray(s), Nasal, Daily, 3 refills, Not taking: not taking states she ran out Multi Vitamin+, Not taking: pt states not taking this anymore Allergies morphine (Hives) penicillins Social History A (more content not included)... Normal [facility] Comment on above: Result Comment: Elec tronically Signed By: GRAHAM WOODARD, AUTUMN\.br\Date and Time Signed: 09/29/23 15:48 EST Patient Educationon 09-29-19 Patient Education Orthopedics Joint Pain Joint pain may be caused by many things. Joint pain is likely to go away when you follow instructions from your health care provider for relieving pain at home. However, joint pain can also be caused by conditions that require more treatment. Common causes of joint pain include: ? Bruising in the area of the joint. ? Injury caused by repeating certain movements too many times. ? Age-related joint wear and tear. ? Buildup of uric acid crystals in the joint (gout). ? Inflammation of the joint. ? Other forms of arthritis. ? Infections of the joint or of the bone. Your health care provider may recommend that you take pain medicine or wear a supportive device like an elastic bandage, sling, or splint. If your joint pain continues, you may need lab or imaging tests to diagnose the cause of your joint pain. Follow these instructions at home: Managing pain, stiffness, and swelling ? If directed, put ice on the painful area. To do this: ? If you have a removable elastic bandage, sling, or splint, take it off as told by your doctor. ? Put ice in a plastic bag. ? Place a towel between your skin and the bag. ? Leave the ice on for 20 minutes, 2?3 times a day. ? Remove the ice if your skin turns bright red. This is very important. If you cannot feel pain, heat, or cold, you have a greater risk of damage to the area. ? Move your fingers and toes often to reduce stiffness and swelling. ? Raise the injured area above the level of your heart while you are sitting or lying down. If directed, apply heat to the painful area as often as told by your health care provider. Use the heat source that your health care provider recommends, such as a moist heat pack or a heating pad. ? Place a towel between your skin and the heat source. ? Leave the heat on for 20?30 minutes. ? Remove the heat if your skin turns bright red. This is especially important if you are unable to feel pain, heat, or cold. You have a greater risk of getting burned. Activity ? Rest as told by your health care provider. Do not do anything that causes or worsens pain. ? Begin exercising or stretching the affected area as told by your health care provider. ? Return to your normal activities as told by your health care provider. Ask your health care provider what activities are safe for you. If you have an elastic bandage, sling, or splint: ? Wear the bandage, sling, or splint as told by your health care provider. Remove it only as told by your health care provider. ? Loosen it if your fingers or toes below the joint tingle, become numb, or turn cold and blue. ? Keep it clean. ? Ask your health care provider if you should remove it before bathing. ? If the bandage, sling, or splint is not waterproof: ? Do not let it get wet. ? Cover it with a watertight covering when you take a bath or shower. General instructions ? Treatment may include medicines for pain and inflammation that are taken by mouth or applied to the skin. Take yrvu-ewi-jphqrcf and prescription medicines only as told by your health care provider. ? Do not use any products that contain nicotine or tobacco, such as cigarettes, e-cigarettes, and chewing tobacco. If you need help quitting, ask your health care provider. ? Keep all follow-up visits. This is important. Contact a health care provider if: ? You have pain that gets worse and does not get better with medicine. ? Your joint pain does not improve within 3 days. ? You have increased bruising or swelling. ? You have a fever. ? You lose 10 lb (4.5 kg) or more without trying. Get help right away if: ? You cannot move the joint. ? Your fingers or toes tingle, become numb, or turn cold and blue. ? You have a fever along with a joint that is red, warm, and swollen. Summary ? Joint pain may be caused by many things. ? Your health care provider may recommend that you take pain medicine or wear a supportive device such as an elastic bandage, sling, or splint. ? If your joint pain continues, you may need tests to diagnose the cause of your joint pain. ? Take [id number] and prescription medicines only as told by your health care provider. This information is not intended to replace advice given to you by your health care provider. Make sure you discuss any questions you have with your health care provider. Document Revised: 11/04/2020 Document Reviewed: 11/04/2020 [employer] Patient Education ? 2022 [employer] Acute Pain, Adult Acute pain is a type of sudden pain that may last for just a few days or for as long as six months. It is often related to an illness, injury, or medical procedure. Acute pain may be mild, moderate, or severe. Pain can make it hard for you to do your normal, daily activities. It can cause anxiety and lead to other problems if it is left untreated. Treatment depends on the cau (more content not included)... Normal [facility] Auth for Release of Medical Recordson 05-31-2023 Auth for Release of Medical Records [id number] [id number] Normal [facility] Patient Letter FTon 2022 Patient Letter [facility] May 30, 2023 ARACELI CATHERINE [id number] [place] [address] : 1970 05/30/2023 To Whom It May Concern: I am recommending that Araceli Catherine be exempt from receiving the flu vaccines due to side effects, such as migraines, nausea, vomiting, lethargy. I am also recommending that she be exempt from the COVID immunization due to permanent loss of taste and smell, increased anxiety since having last immunization, and a rash that has not went away. Lawson Felipe, [facility] [place] [address] [place] [address] Normal [facility] Alanine aminotransferase [En zymatic activity/volume] in Serum or PlasmaOrdered By: Kellie Enamorado on 01-26-2023 ALT [Catalytic activity/Vol] 15 U/L 7-52 [facility] Albumin [Mass/volume] in Ser um or Plasma by Bromocresol green (BCG) dye binding methoOrdered By: Kellie Enamorado on 01-26-2023 Albumin BCG dye [Mass/Vol] 4.3 g/dL 3.5-5.7 [facility] Alkaline phosphatase [Enzyma tic activity/volume] in Serum or PlasmaOrdered By: Kellie Enamorado on 01-26-2023 ALP [Catalytic activity/Vol] 65 U/L 34-104 [facility] Aspartate aminotransferase [ Enzymatic activity/volume] in Serum or PlasmaOrdered By: Kellie Enamorado on 01-26-2023 AST [Catalytic activity/Vol] 19 U/L 13-39 [facility] Bilirubin.total [Mass/volume ] in Serum or PlasmaOrdered By: Kellie Enamorado on 01-26-2023 Bilirubin [Mass/Vol] 0.7 mg/dL 0.3-1.0 [facility] Calcium [Mass/volume] in Ser um or PlasmaOrdered By: Kellie Enamorado on 01-26-2023 Calcium [Mass/Vol] 9.6 mg/dL 8.6-10.3 [facility] Carbon dioxide, total [Moles /volume] in Serum or PlasmaOrdered By: Kellie Enamorado on 01-26-2023 CO2 [Moles/Vol] 31.4 mmol/L 21.0-31.0 [facility] Chloride [Moles/volume] in S hernan or PlasmaOrdered By: Kellie Enamorado on 01-26-2023 Chloride [Moles/Vol] 104 mmol/L 98-107 [facility] Cholesterol [Mass/volume] in Serum or PlasmaOrdered By: Kellie Enamorado on 01-26-2023 Cholesterol [Mass/Vol] 204 mg/dL 140-200 [facility] Comment on above: Chol less than 200 m g/dl low riskChol 201-239 mg/dl borderline riskChol 240 mg/dl and greater high risk Cholesterol in LDL Calc [Mas s/Vol]Ordered By: Kellie Enamorado on 01-26-2023 Cholesterol in LDL [Mass/Vol] 130 mg/dL 0-100 [facility] Comment on above: LDL ATP III CLASSIFI CATIONLDL less than 100 mg/dL OptimalLDL 100-129 mg/dL Near or above optimalLDL 130-159 mg/dL Borderline highLDL 160-189 mg/dL HighLDL greater than 189 mg/dL Very high Cholesterol in VLDL Calc [Ma ss/Vol]Ordered By: Kellie Enamorado on 01-26-2023 Cholesterol in VLDL [Mass/Vol] 37 mg/dL [facility] Creatinine [Mass/volume] in Serum or PlasmaOrdered By: Kellie Enamorado on 01-26-2023 Creatinine [Mass/Vol] 0.78 mg/dL 0.60-1.20 [facility] Erythrocyte distribution wid th Auto (RBC) [Ratio]Ordered By: Kellie Enamorado on 01-26-2023 Erythrocyte distribution width (RBC) [Ratio] 12.6 % 11.9-15.3 [facility] Globulin Calc (S) [Mass/Vol] Ordered By: Kellie Enamorado on 01-26-2023 Globulin (S) [Mass/Vol] 2.0 g/dL [facility] Glucose [Mass/volume] in Ser um or PlasmaOrdered By: Kellie Enamorado on 01-26-2023 Glucose [Mass/Vol] 89 mg/dL 70-100 [facility] Hematocrit Auto (Bld) [Volum e fraction]Ordered By: Kellie Enamorado on 01-26-2023 Hematocrit (Bld) [Volume fraction] 41.1 % 34.0-46.4 [facility] Hemoglobin [Mass/volume] in BloodOrdered By: Kellie Enamorado on 01-26-2023 Hemoglobin (Bld) [Mass/Vol] 14.3 g/dL 11.8-15.4 [facility] Leukocytes [#/volume] correc forrest for nucleated erythrocytes in Blood by Automated counOrdered By: Kellie Enamorado on 01-26-2023 WBC corrected for nucl RBC Auto (Bld) [#/Vol] 6.1 10*3/uL 3.8-11.6 [facility] MCH Auto (RBC) [Entitic mass ]Ordered By: Kellie Enamorado on 01-26-2023 MCH (RBC) [Entitic mass] 32.4 pg 24.7-34.3 [facility] MCHC Auto (RBC) [Mass/Vol]Or dered By: Kellie Enamorado on 01-26-2023 MCHC (RBC) [Mass/Vol] 34.7 g/dL 32.0-35.0 [facility] MCV Auto (RBC) [Entitic vol] Ordered By: Kellie Enamorado on 01-26-2023 MCV (RBC) [Entitic vol] 93.3 fL 80-100 [facility] No Panel InformationOrdered By: Kellie Enamorado on 01-26-2023 Estimated GFR (CKD-EPI) > 60.0 mL/Min [facility] Creatinine Clearance (Chem N/A [facility] Platelet mean volume Auto (B ld) [Entitic vol]Ordered By: Kellie Enamorado on 01-26-2023 Platelet mean volume (Bld) [Entitic vol] 8.8 fL 6.3-10.7 [facility] Platelets Auto (Bld) [#/Vol] Ordered By: Kellie Enamorado on 01-26-2023 Platelets (Bld) [#/Vol] 243 10*3/uL 150-450 [facility] Potassium [Moles/volume] in Serum or PlasmaOrdered By: Kellie Enamorado on 01-26-2023 Potassium [Moles/Vol] 4.2 mmol/L 3.5-5.1 [facility] Protein [Mass/volume] in Ser um or PlasmaOrdered By: Kellie Enamorado on 01-26-2023 Protein [Mass/Vol] 6.3 g/dL 6.4-8.9 [facility] RBC Auto (Bld) [#/Vol]Ordere d By: Kellie Enamorado on 01-26-2023 RBC (Bld) [#/Vol] 4.40 10*6/uL 3.60-5.00 [facility] Serum or plasma albumin/glob ulin mass ratioOrdered By: Kellie Enamorado on 01-26-2023 Albumin/Globulin [Mass ratio] 2.2 {ratio} [facility] Serum or plasma anion gap de terminationOrdered By: Kellie Enamorado on 01-26-2023 Anion gap [Moles/Vol] 8.8 mmol/L 6.0-15.0 [facility] Serum or plasma high density lipoprotein (HDL) cholesterol measurementOrdered By: Kellie Enamorado on 01-26-2023 Cholesterol in HDL [Mass/Vol] 37 mg/dL 23-92 [facility] Comment on above: HDL CHOL ATP-III CLA SSIFICATION Cardiovascular RiskHDL > or equal to 60 mg/dL LOWHDL < 40 mg/dL HIGH Serum or plasma total choles terol/high density lipoprotein (HDL) cholesterol mass ratOrdered By: Kellie Enamorado on 01-26-2023 Cholesterol.total/Ema sterol in HDL [Mass ratio] 5.5 {ratio} <5.0 [facility] Sodium [Moles/volume] in Ser um or PlasmaOrdered By: Kellie Enamorado on 01-26-2023 Sodium [Moles/Vol] 140 mmol/L 136-145 [facility] Thyrotropin [Units/volume] i n Serum or PlasmaOrdered By: Kellie Enamorado on 01-26-2023 TSH Qn 1.30 m[IU]/L 0.45-5.33 [facility] Triglyceride [Mass/volume] i n Serum or PlasmaOrdered By: Kellie Enamorado on 01-26-2023 Triglyceride [Mass/Vol] 186 mg/dL 0-149 [facility] Comment on above: TRIG ATP III CLASSIF ICATIONTRIG less than 150 mg/dL NormalTRIG 150-199 mg/dL Borderline highTRIG 200-500 mg/dL High TRIG greater than 500 mg/dL Very highStandard traceable to the Center for Disease Conrtrol and Prevention (CDC) test method. Urea nitrogen [Mass/volume] in Serum or PlasmaOrdered By: Kellie Enamorado on 01-26-2023 Urea nitrogen [Mass/Vol] 17 mg/dL 7 [facility] MG MAMM SCREEN 3D DAXA CADon 02-03-2022 MG MAMM SCREEN 3D DAXA CAD Patient: ARACELI CATHERINE Exam Date: 02/03/2022 : 1970 Gender:F Ordering : DR JOHN RIVERA Admission #: [id number] Family : Order #: [id number] CLICK HERE TO VIEW EXAM RADIOLOGY REPORT PROCEDURE: MAMMOGRAM SCREENING 3D BILATERAL CAD COMPARISON: MG MAMM SCREEN 3D DAXA CAD, 11/23/2020. MG MAMM SCREEN DAXA W CAD, 10/09/2019. INDICATIONS: Screening mammography Calculator Name NCI Breast Cancer Risk Assessment Tool 5 Year Breast Cancer Risk 1.20% Lifetime Breast Cancer Risk 10.80% Personal Breast Cancer No Personal Ovarian Cancer No Treatments None Family Cancers None LOCATION: [facility] BREAST COMPOSITION: Heterogeneously dense,which may obscure small masses. FINDINGS: DIAGNOSTIC CATEGORY 1--NEGATIVE. NO CHANGE FROM COMPARISON ASSESSMENT. Scattered benign-appearing nodules are present. Scattered benign-appearing calcifications are present. Scattered benign-appearing lymph nodes are present. RIGHT BREAST: No significant suspicious finding. LEFT BREAST: No significant suspicious finding. RECOMMENDATIONS: ROUTINE MAMMOGRAM AND CLINICAL EVALUATION IN 12 MONTHS. PLEASE NOTE: A NORMAL MAMMOGRAM DOES NOT EXCLUDE THE POSSIBILITY OF BREAST CANCER. A CLINICALLY SUSPICIOUS PALPABLE LUMP SHOULD BE BIOPSIED. Dictated by: Jr Lopez MD on 02/03/2022 at 11:46 Approved by: Jr Lopez MD on 02/03/2022 at 11:47 Normal [facility] Vital Signs Date Time Vital Sign Value Performing Clinician Rosario saunders 09-18-2024 17:22-0500 Blood Pressure Location Keily Guardadoleroy [facility] 09-18-2024 17:22-0500 Body temperature 97.7 [degF] Keily Nieveser [facility] 09-18-2024 17:22-0500 Diastolic blood pressure 84 mm[Hg] Keily Geodner [facility] 09-18-2024 17:22-0500 Heart rate 73 /min Keilyjackie Guardadodner [facility] 09-18-2024 17:22-0500 SaO2% (BldA) [Mass fraction] 97 % Keily Nieveser [facility] 09-18-2024 17:22-0500 Systolic blood pressure 130 mm[Hg] Keily Guardadodner [facility] 09-11-2024 09:10-0500 Blood Pressure Location Lisa Donnell [facility] 09-11-2024 09:10-0500 Body temperature 98.6 [degF] Lisa Jacobo [facility] 09-11-2024 09:10-0500 Diastolic blood pressure 86 mm[Hg] Lisa Jacobo [facility] 09-11-2024 09:10-0500 Heart rate 78 /min Lisa Jacobo [facility] 09-11-2024 09:10-0500 SaO2% (BldA) [Mass fraction] 95 % Lisa Jacobo [facility] 09-11-2024 09:10-0500 Systolic blood pressure 138 mm[Hg] Lisa Jacobo [facility] 09-10-2024 15:12-0500 Body height 167.6 cm Tom Biedenbach DO Work Phone: [facility] 09-10-2024 15:12-0500 Body mass index (BMI) [Ratio] 29.05 kg/m2 Tom Biedenbach DO Work Phone: [facility] 09-10-2024 15:12-0500 Body weight 81.65 kg Tom Biedenbach DO Work Phone: [facility] 08-09-2024 14:09-0500 Body height 167.6 cm Tom Biedenbach DO Work Phone: [facility] 08-09-2024 14:09-0500 Body mass index (BMI) [Ratio] 29.05 kg/m2 Tom Biedenbach DO Work Phone: [facility] 08-09-2024 14:09-0500 Body weight 81.65 kg Tom Biedenbach DO Work Phone: [facility] 07-23-2024 15:25-0500 Body height 167.6 cm Tom Biedenbach DO Work Phone: [facility] 07-23-2024 15:25-0500 Body mass index (BMI) [Ratio] 29.05 kg/m2 Tom Biedenbach DO Work Phone: [facility] 07-23-2024 15:25-0500 Body weight 81.65 kg Tom Biedenbach DO Work Phone: [facility] 07-19-2024 08:20-0500 Body height 167.6 cm John Rivera DO Work Phone: [facility] 07-19-2024 08:20-0500 Body mass index (BMI) [Ratio] 29.38 kg/m2 John Rivera DO Work Phone: [facility] 07-19-2024 08:20-0500 Body weight 82.56 kg John Rivera DO Work Phone: [facility] 07-19-2024 08:20-0500 Diastolic blood pressure 86 mm[Hg] John Rivera DO Work Phone: [facility] 07-19-2024 08:20-0500 Systolic blood pressure 160 mm[Hg] John Rivera DO Work Phone: [facility] 07-18-2024 15:17-0500 Diastolic blood pressure 82 mm[Hg] OWEN CRONIN [facility] 07-18-2024 15:17-0500 Mean blood pressure 103 mm[Hg] OWEN CRONIN [facility] 07-18-2024 15:17-0500 Systolic blood pressure 144 mm[Hg] OWEN CRONIN [facility] 07-18-2024 15:12-0500 Blood Pressure Location OWEN CRONIN [facility] 07-18-2024 15:12-0500 Diastolic blood pressure 84 mm[Hg] OWEN CRONIN [facility] 07-18-2024 15:12-0500 Heart rate 88 /min OWEN CRONIN [facility] 07-18-2024 15:12-0500 Respiratory rate 18 /min OWEN CRONIN [facility] 07-18-2024 15:12-0500 SaO2% (BldA) [Mass fraction] 96 % OWEN CRONIN [facility] 07-18-2024 15:12-0500 Systolic blood pressure 155 mm[Hg] OWEN CRONIN [facility] 09-29-2023 15:03-0500 Blood Pressure Location OWEN CRONIN [facility] 09-29-2023 15:03-0500 Body temperature 98.24 [degF] OWEN CRONIN [facility] 09-29-2023 15:03-0500 Diastolic blood pressure 78 mm[Hg] OWEN CRONIN [facility] 09-29-2023 15:03-0500 Heart rate 68 /min OWEN CRONIN [facility] 09-29-2023 15:03-0500 Respiratory rate 16 /min OWEN CRONIN [facility] 09-29-2023 15:03-0500 SaO2% (BldA) [Mass fraction] 98 % OWEN CRONIN [facility] 09-29-2023 15:03-0500 Systolic blood pressure 120 mm[Hg] OWEN CRONIN [facility] 05-10-2023 11:27-0400 Blood Pressure Location LAWSON GONZALEZANN [facility] 05-10-2023 11:27-0400 Diastolic blood pressure 82 mm[Hg] LAWSON DESTINEE [facility] 05-10-2023 11:27-0400 Heart rate 100 /min LAWSON DESTINEE [facility] 05-10-2023 11:27-0400 Systolic blood pressure 140 mm[Hg] LAWSON DESTINEE [facility] 12-08-2022 10:42-0400 Blood Pressure Location KRYSTA CRUZ [facility] 12-08-2022 10:42-0400 Body temperature 98.06 [degF] KRYSTA SIDELL [facility] 12-08-2022 10:42-0400 Diastolic blood pressure 70 mm[Hg] KRYSTA SIDELL [facility] 12-08-2022 10:42-0400 Heart rate 66 /min KRYSTA SIDELL [facility] 12-08-2022 10:42-0400 SaO2% (BldA) [Mass fraction] 99 % KRYSTA SIDELL [facility] 12-08-2022 10:42-0400 Systolic blood pressure 132 mm[Hg] KRYSTA SIDELL [facility] Encounters Encounter Date Encounter Type Care Provider Facility Start: 04-19-2025 End: 04-19-2025 ambulatory OWEN CRONIN Facility:[facility] Start: 04-16-2025 End: 04-16-2025 ambulatory OWEN CRONIN Facility:[facility] Start: 04-16-2025 End: 04-16-2025 Patient encounter procedure OWEN CRONIN [facility] Start: 04-10-2025 End: 04-10-2025 ambulatory OWEN CRONIN Facility:[facility] Start: 04-10-2025 End: 04-10-2025 Patient encounter procedure OWEN CRONIN [facility] Start: 04-04-2025 End: 04-04-2025 ambulatory Keily Dangelo Facility:[facility] Start: 04-04-2025 End: 04-04-2025 Patient encounter procedure Keily Dangelo [facility] Start: 11-25-2024 End: 11-25-2024 Office outpatient visit 15 minutes Gerber Parker MD Work Phone: [facility] Comment on above: Melanocytic nevus of face, other location (Primary Dx); Seborrheic keratosis; Lentigines; Seborrheic keratosis, inflamed; Actinic keratosis Start: 11-25-2024 End: 11-25-2024 ambulatory GERBER PARKER Not Available Start: 11-25-2024 End: 11-25-2024 Bamboo flowsheet Gerber Parker MD Work Phone: [facility] Start: 11-25-2024 End: 11-25-2024 Bamboo flowsheet Gerber Parker MD Work Phone: [facility] Start: 09-18-2024 End: 09-18-2024 ambulatory Keily Dangelo Facility:[facility] Start: 09-18-2024 End: 09-18-2024 Patient encounter procedure Keily Dangelo [facility] Start: 09-11-2024 End: 09-11-2024 ambulatory Lisa Jacobo Facility:[facility] Start: 09-11-2024 End: 09-11-2024 Patient encounter procedure Lisa Jacobo [facility] Start: 09-10-2024 End: 09-10-2024 Office outpatient visit 15 minutes Tom Oro DO Work Phone: [facility] Comment on above: Perforation of left tympanic membrane (Primary Dx); Non-recurrent acute suppurative otitis media of left ear with spontaneous rupture of tympanic membrane; Chronic rhinitis Start: 09-10-2024 End: 09-10-2024 ambulatory TOM S BIEDENBACH Not Available Start: 09-10-2024 End: 09-10-2024 Bamboo flowsheet Tom Austin Biedenbach DO Work Phone: [facility] Start: 09-10-2024 End: 09-10-2024 Bamboo flowsheet Tom Austin Biedenbach DO Work Phone: [facility] Start: 08-09-2024 End: 08-09-2024 Office outpatient visit 15 minutes Tom Austin Biedenbach DO Work Phone: [facility] [place] Comment on above: Perforation of left tympanic membrane (Primary Dx); Non-recurrent acute suppurative otitis media of left ear with spontaneous rupture of tympanic membrane Start: 08-09-2024 End: 08-09-2024 ambulatory TOM Geovanna BIEDENBACH Not Available Start: 08-09-2024 End: 08-09-2024 Bamboo flowsheet Tom Austin Biedenbach DO Work Phone: [facility] Start: 08-09-2024 End: 08-09-2024 Bamboo flowsheet Tom Austin Biedenbach DO Work Phone: [facility] [place] Start: 07-23-2024 End: 07-23-2024 Office outpatient new 30 minutes Tom Austin Biedenbach DO Work Phone: [facility] Comment on above: Non-recurrent acute suppurative otitis media of left ear with spontaneous rupture of tympanic membrane (Primary Dx); Perforation of left tympanic membrane Start: 07-23-2024 End: 07-23-2024 ambulatory TOM S BIEDENBACH Not Available Start: 07-23-2024 End: 07-23-2024 Bamboo flowsheet Tom Austin Biedenbach DO Work Phone: [facility] Start: 07-23-2024 End: 07-23-2024 Bamboo flowsheet Tom Austin Biedenbach DO Work Phone: [facility] Start: 07-19-2024 End: 07-19-2024 Patient encounter status John Rivera DO Work Phone: [facility] Start: 07-19-2024 End: 07-19-2024 Periodic preventive med est patient 40-64yrs John Rivera DO Work Phone: [facility] Comment on above: Encounter for gyneco logical examination without abnormal finding (Primary Dx); Encounter for Papanicolaou smear of vagina; Breast cancer screening by mammogram; Ear drum perforation, left Start: 07-19-2024 End: 07-19-2024 ambulatory JOHN RIVERA Not Available Start: 07-18-2024 End: 07-18-2024 ambulatory OWEN CRONIN Facility:[facility] Start: 07-18-2024 End: 07-18-2024 Patient encounter procedure OWEN CRONIN [facility] [place] Start: 07-18-2024 ambulatory Keily Donovani ty:[facility] Start: 06-03-2024 End: 06-03-2024 ambulatory MD Chris Singh Work Phone: [facility] Work Phone: Start: 06-03-2024 End: 06-03-2024 Patient encounter procedure MD Chris Singh Work Phone: [facility] [address] Work Phone: Start: 05-18-2024 End: 05-18-2024 ambulatory OWEN CRONIN Facility:[facility] Start: 05-18-2024 End: 05-18-2024 Patient encounter procedure OWEN CRONIN [facility] Start: 10-13-2023 End: 10-13-2023 ambulatory OWEN CRONIN Facility:[facility] Start: 10-13-2023 End: 10-13-2023 Patient encounter procedure OWEN CRONIN [facility] Start: 10-02-2023 End: 10-02-2023 ambulatory Hiro Alvarado Facility:[facility] Start: 09-29-2023 End: 09-29-2023 ambulatory OWEN CRONIN Facility:[facility] Start: 09-29-2023 End: 09-29-2023 Patient encounter procedure OWEN CRONIN [facility] Start: 05-10-2023 End: 05-10-2023 Patient encounter procedure LAWSON FELIPE [facility] Start: 01-26-2023 End: 01-26-2023 ambulatory MD Chris Singh Work Phone: [facility] Work Phone: Start: 01-26-2023 End: 01-26-2023 Departed Referred MD Chris Singh Work Phone: [facility] Work Phone: Start: 12-08-2022 End: 12-08-2022 Patient encounter procedure KRYSTA CRUZ [facility] Start: 02-03-2022 End: 02-04-[address] JOHN RIVERA Facility:[facility] Procedures Date Procedure Procedure Detail Performing Clinician Start: 11-25-2024 CRYOTHERAPY SKIN LESION Gerber Parker MD Work Phone: Start: 04-10-2024 Mammography John Rivera DO Work Phone: Start: 07-10-2023 H/O: hysterectomy Status post hysterectomy John Rivera DO Work Phone: Hysterectomy KRYSTA CRUZ Plan of Treatment Date Care Activity Detail Author Start: 07-19-2029 Screening for malignant neoplasm of cervix [facility] Start: 11-26-2025 End: 11-26-2025 Patient encounter procedure 11/26/2025 4:05 PM EDT Office Visit [facility] [address] [place] [id number] Gerber Parker MD [address] [place] [address] [facility] Start: 07-25-2025 End: 07-25-2025 Patient encounter procedure 07/25/2025 8:30 AM EST Office Visit [facility] [address] [place] [phone] John Rivera, [address] [place] [address] [facility] Start: 04-10-2025 Screening for malignant neoplasm of breast Mammogram [facility] Start: 04-07-2025 Influenza vaccination Influenz a Vaccine (Season Ended) [facility] Start: 04-06-2025 End: 09-19-2025 DBT Breast - bilateral screening Bilateral screening mammogram with tomosynthesis Imaging Routine Breast cancer screening by mammogram Expected: 04/06/2025, Expires: 09/19/2025 [facility] Comment on above: Expected: 04/06/2025 , Expires: 09/19/2025 Start: 03-23-2025 Screening for malignant neoplasm of cervix [facility] Start: 11-25-2024 End: 11-25-2024 Patient encounter procedure [facility] Comment on above: Arrived Start: 09-10-2024 End: 09-10-2024 Patient encounter procedure 09/10/2024 3:15 PM EST Office Visit [facility] [address] [place] [id number] Tom Oro, DO [address] [place] [address] Arrived [facility] Comment on above: Arrived Start: 08-29-2024 End: 08-29-2024 Patient encounter procedure 08/29/2024 3:45 PM EST [facility] [address] [place] [phone] Tom Oro, DO [address] [place] [address] [facility] Start: 08-09-2024 End: 08-09-2024 Patient encounter procedure [facility] [place] Comment on above: Arrived Start: 07-23-2024 End: 07-23-2024 Patient encounter procedure 07/23/2024 3:30 PM EST [facility] [address] [place] [phone] Tom Oro, DO [address] [place] [address] Arrived [facility] Comment on above: Arrived Start: 04-07-2024 Influenza vaccination Influenza Vacc ine (#1) [facility] Start: 01-26-2023 [facility] Start: 1992 Screening for malignant neoplasm of cervix Pap Smear [facility] Start: 1970 Screening for malignant neoplasm of colon [facility] IGP,rfxAptima HPV all,16/18,45 IGP,rfxAptima HPV all,16/18,45 Pathology and Cytology Routine Encounter for Papanicolaou smear of vagina Ordered: 07/19/2024 [facility] Work Phone: Comment on above: Ordered: 07/19/2024 Immunizations Immunization Date Immunization Notes Care Provider Chao wylie 10-18-2024 tetanus toxoid, reduced diphtheria toxoid, and acellular pertussis vaccine, adsorbed Keily Bordner [facility] 06-28-2023 measles, mumps and rubella virus vaccine OWEN CRONIN [facility] 06-05-2023 influenza virus vaccine, unspecified formulation OWEN GRAHAM [facility] 06-05-2023 influenza, injectable, quadrivalent, preservative free John Rivera DO Work Phone: [facility] 06-05-2023 influenza, unspecified formulation OWEN GRAHAM [facility] 10-07-2021 COVID-19, mRNA, LNP-S, PF, 30 mcg/0.3 mL dose KRYSTA SIDELL [facility] 09-16-2021 COVID-19, mRNA, LNP-S, PF, 30 mcg/0.3 mL dose KRYSTA SIDELL [facility] NEGATED: Highlighted row has not occurred!09-18-2024 influenza virus vaccine, unspecified formulation Keily Dangelo [facility] NEGATED: Highlighted row has not occurred!09-16-2021 COVID-19, mRNA, LNP-S, PF, 30 mcg/0.3 mL dose KRYSTA SIDELL [facility] Comment on above: Result Comment: mark garcia order Payers Date Payer Category Payer Private Health Insurance [id number] 2024 Self-pay 2023 Unknown [id number] 2023 [facility] er [id number] 2022 Unknown [id number] 1971 Unknown [id number] 2.16.840.1.691214.3.579.2. 593 1971 Unknown [id number] 2.16.840.1.750354.3.579.2. 727 1971 Unknown [id number] 2.16.840.1.167887.3.579.2. 727 1971 Unknown [id number] 2.16.840.1.052734.3.579.2. 727 1971 Unknown [id number] 2.16.840.1.038797.3.579.2. 7 1971 Unknown [id number] 2.16.840.1.577913.3.579.2. 727 1971 Unknown [id number] 2.16.840.1.130752.3.579.2. 1259 1971 Unknown [id number] 2.16.840.1.046077.3.579.2. 9 1971 Unknown [id number] 2.16.840.1.891329.3.579.2. 1258 1971 Unknown [id number] 2.16.840.1.473599.3.579.2. 9 1971 Unknown [id number] 2.16.840.1.119710.3.579.2. 1259 1971 Unknown [id number] 2.16.840.1.659101.3.579.2. 727 1971 Unknown [id number] 2.16.840.1.440868.3.579.2. 727 1971 Unknown [id number] 2.16.840.1.114251.3.579.2. 727 1971 Unknown [id number] 2.16.840.1.239162.3.579.2. 727 1971 Unknown [id number] 2.16.840.1.933448.3.579.2. 727 1971 Unknown [id number] 2.16.840.1.506217.3.579.2. 727 1971 Unknown [id number] 2.16.840.1.253917.3.579.2. 727 1971 Unknown [id number] 2.16.840.1.795586.3.579.2. 7 1971 Unknown [id number] 2.16.840.1.939881.3.579.2. 727 1971 Unknown [id number] 2.16.840.1.737122.3.579.2. 727 1959 Unknown [id number] Unknown Priti BC/BS [id number] Unknown [id number] 2.16.840.1.000257.3.579.2. 531 Social History Date Type Detail Facility Start: 12-08-2022 Tobacco smoking status Light t obacco smoker (finding) [facility] Start: 05-10-2023 End: 04-16-2025 Tobacco smoking status Ex-smoker (finding) [facility] Tobacco smoking status Never [facility] Start: 07-19-2024 End: 11-25-2024 Sex Assigned At Female [facility] Start: 1970 Sex Assigned At Female [facility] History of tobacco use Current smoker [facility] History of tobacco use Cigarette Smoker [facility] Start: 07-18-2024 End: 07-19-2024 Cigarettes smoked current (pack per day) - Reported 0.3 [facility] Start: 07-18-2024 Tobacco use and exposure Smoke less tobacco non-user [facility] Start: 07-19-2024 End: 11-26-2024 Alcoholic beverage intake Ex-drinker (finding) [facility] How often to you hav e a drink containing alcohol? Monthly or less [facility] How many standard dr inks containing alcohol do you have on a typical day? 1 or 2 [facility] How often do you hav e 6 or more drinks on 1 occasion? Never [facility] Start: 07-08-2023 Alcohol Comment Caffeine intak e: >4 cups per day coffee [facility] Start: 07-03-2023 Gender identity Identifies as female gender (finding) [facility] Sexual Orientation [facility] Start: 10-26-2018 Sex Female (finding) [facility] Functional Status Date Assessment Result Facility 09-18-2024 Functional Status N/A [facility] 09-11-2024 Functional Status N/A [facility] 07-18-2024 Functional Status N/A [facility] 09-29-2023 Functional Status N/A [facility] 05-10-2023 Functional Status N/A [facility] 12-08-2022 Functional Status N/A [facility] Clinical Notes 12-08-2022 to 04-07-2025 Gerber Parker MD - 11/25/2024 4:05 PM EDTPaucorie Oro, DO - 09/10/2024 3:15 PM Francisca Oro, DO - 08/09/2024 2:30 PM Francisca Oro, DO - 07/23/2024 3:30 PM ESTLaboratory Note Date & Type Note Facility 04-07-2025 Note Microbiology PROCEDURE: Strep Screen Culture [R1] SOURCE: Throat BODY SITE: COLLECTED DATE/TIME: 04/04/2025 17:52 EDT RECEIVED DATE/TIME: 04/05/2025 14:06 EDT START DATE/TIME: 04/05/2025 14:06 EDT FREE TEXT SOURCE: Bordner INDUSTRIAL X RAY OPERATOR-C, Kallie Bordner INDUSTRIAL X RAY OPERATOR-C, Kallie FINAL REPORTS Final Report [] Verified Date/Time: 04/07/2025 08:03 EDT Streptococcus Group A screen negative Performing Locations R1: This test was performed at: [facility], [address] [place] [address], [id number] [place] [address], [facility] Comment on above: Performed By: #### [id number] #### [facility] [address] [place] [id number] 04-07-2025 Note Microbiology PROCEDURE: Strep Screen Culture [R1] SOURCE: Throat BODY SITE: COLLECTED DATE/TIME: 04/04/2025 17:52 EDT RECEIVED DATE/TIME: 04/05/2025 14:06 EDT START DATE/TIME: 04/05/2025 14:06 EDT FREE TEXT SOURCE: Bordner INDUSTRIAL X RAY OPERATOR-C, Kallie Bordner INDUSTRIAL X RAY OPERATOR-C, Kallie FINAL REPORTS Final Report [] Verified Date/Time: 04/07/2025 08:03 EDT Streptococcus Group A screen negative Performing Locations R1: This test was performed at: [facility], [address] [place] [address], [id number] [place] [address], [facility] Comment on above: Performed By: #### [id number] #### [facility] [address] [place] [id number] 04-04-2025 Hospital Discharge instructions Patient Education 04/04/2025 17:51:43 Pharyngitis, Nykt-el-Akho Pharyngitis Pharyngitis is a sore throat (pharynx). This is when there is redness, pain, and swelling in your throat. Most of the time, this condition gets better on its own. In some cases, you may need medicine. What are the causes? An infection from a virus. An infection from bacteria. Allergies. What increases the risk? Being 5 24 years old. Being in crowded environments. These include: ?Daycares. ?Schools. ?Dormitories. Living in a place with cold temperatures outside. Having a weakened disease-fighting (immune) system. What are the signs or symptoms? Symptoms may vary depending on the cause. Common symptoms include: Sore throat. Tiredness (fatigue). Low-grade fever. Stuffy nose. Cough. Headache. Other symptoms may include: Glands in the neck (lymph nodes) that are swollen. Skin rashes. Film on the throat or tonsils. This can be caused by an infection from bacteria. Vomiting. Red, itchy eyes. Loss of appetite. Joint pain and muscle aches. Tonsils that are temporarily bigger than usual (enlarged). How is this treated? Many times, treatment is not needed. This condition usually gets better in 3 4 days without treatment. If the infection is caused by a bacteria, you may be need to take antibiotics. Follow these instructions at home: Medicines Take nfyf-xze-adowybs and prescription medicines only as told by your doctor. If you were prescribed an antibiotic medicine, take it as told by your doctor. Do not stop taking the antibiotic even if you start to feel better. Use throat lozenges or sprays to soothe your throat as told by your doctor. Children can get pharyngitis. Do not give your child aspirin. Managing pain To help with pain, try: Sipping warm liquids, such as: ?Broth. ?Herbal tea. ?Warm water. Eating or drinking cold or frozen liquids, such as frozen ice pops. Rinsing your mouth (gargle) with a salt water mixture 3 4 times a day or as needed. ?To make salt water, dissolve 1 tsp (3 6 g) of salt in 1 cup (237 mL) of warm water. ?Do not swallow this mixture. Sucking on hard candy or throat lozenges. Putting a cool-mist humidifier in your bedroom at night to moisten the air. Sitting in the bathroom with the door closed for 5 10 minutes while you run hot water in the shower. General instructions Do not smoke or use any products that contain nicotine or tobacco. If you need help quitting, ask your doctor. Rest as told by your doctor. Drink enough fluid to keep your pee (urine) pale yellow. How is this prevented? Wash your hands often for at least 20 seconds with soap and water. If soap and water are not available, use hand package delivery driver. Do not touch your eyes, nose, or mouth with unwashed hands. Wash hands after touching these areas. Do not share cups or eating utensils. Avoid close contact with people who are sick. Contact a doctor if: You have large, tender lumps in your neck. You have a rash. You cough up green, yellow-brown, or bloody spit. Get help right away if: You have a stiff neck. You drool or cannot swallow liquids. You cannot drink or take medicines without vomiting. You have very bad pain that does not go away with medicine. You have problems breathing, and it is not from a stuffy nose. You have new pain and swelling in your knees, ankles, wrists, or elbows. These symptoms may be an emergency. Get help right away. Call your local emergency services (911 in the [place] Do not wait to see if the symptoms will go away. Do not drive yourself to the hospital. Summary Pharyngitis is a sore throat (pharynx). This is when there is redness, pain, and swelling in your throat. Most of the time, pharyngitis gets better on its own. Sometimes, you may need medicine. If you were prescribed an antibiotic medicine, take it as told by your doctor. Do not stop taking the antibiotic even if you start to feel better. This information is not intended to replace advice given to you by your health care provider. Make sure you discuss any questions you have with your health care provider. Document Revised: 10/20/2021 Document Reviewed: 10/20/2021 [employer] Patient Education 2023 [employer]. 04/04/2025 17:51:39 Viral Respiratory Infection, Zrbm-Dj-Swxl Viral Respiratory Infection A viral respiratory infection is an illness that affects parts of the body that are used for breathing. These include the lungs, nose, and throat. It is caused by a germ called a virus. Some examples of this kind of infection are: A cold. The flu (influenza). A respiratory syncytial virus (RSV) infection. What are the causes? This condition is caused by a virus. It spreads from person to person. You can get the virus if: You breathe in droplets from someone who is sick. You come in contact with people who are sick. You touch mucus or other fluid from a person who is sick. What are the signs or symptoms? Symptoms of this condition include: A stuffy or runny nose. A sore throat. A cough. Shortness of breath. Trouble breathing. Yellow or green fluid in the nose. Other symptoms may include: A fever. Sweating or chills. Tiredness (fatigue). Achy muscles. A headache. How is this treated? This condition may be treated with: Medicines that treat viruses. Medicines that make it easy to breathe. Medicines that are sprayed into the nose. Acetaminophen or NSAIDs, such as ibuprofen, to treat fever. Follow these instructions at home: Managing pain and congestion Take mtfp-tmf-bbftqit and prescription medicines only as told by your doctor. If you have a sore throat, gargle with salt water. Do this 3 4 times a day or as needed. ?To make salt water, dissolve 1 tsp (3 6 g) of salt in 1 cup (237 mL) of warm water. Make sure that all the salt dissolves. Use nose drops made from salt water. This helps with stuffiness (congestion). It also helps soften the skin around your nose. Take 2 tsp (10 mL) of honey at bedtime to lessen coughing at night. ?Do not give honey to children who are younger than 1 year old. Drink enough fluid to keep your pee (urine) pale yellow. General instructions Rest as much as possible. Do not drink alcohol. Do not smoke or use any products that contain nicotine or tobacco. If you need help quitting, ask your doctor. Keep all follow-up visits. How is this prevented? Get a flu shot every year. Ask your doctor when you should get your flu shot. Do not let other people get your germs. If you are sick: ?Wash your hands with soap and water often. Wash your hands after you cough or sneeze. Wash hands for at least 20 seconds. If you cannot use soap and water, use hand package delivery driver. ?Cover your mouth when you cough. Cover your nose and mouth when you sneeze. ?Do not share cups or eating utensils. ?Clean commonly used objects often. Clean commonly touched surfaces. ?Stay home from work or school. Avoid contact with people who are sick during cold and flu season. This is in fall and winter. Get help if: Your symptoms last for 10 days or longer. Your symptoms get worse over time. You have very bad pain in your face or forehead. Parts of your jaw or neck get very swollen. You have shortness of breath. Get help right away if: You feel pain or pressure in your chest. You have trouble breathing. You faint or feel like you will faint. You keep vomiting and it gets worse. You feel confused. These symptoms may be an emergency. Get help right away. Call your local emergency services (911 in the [place] Do not wait to see if the symptoms will go away. Do not drive yourself to the hospital. Summary A viral respiratory infection is an illness that affects parts of the body that are used for breathing. Examples of this illness include a cold, the flu, and a respiratory syncytial virus (RSV) infection. The infection can cause a runny nose, cough, sore throat, and fever. Follow what your doctor tells you about taking medicines, drinking lots of fluid, washing your hands, resting at home, and avoiding people who are sick. This information is not intended to replace advice given to you by your health care provider. Make sure you discuss any questions you have with your health care provider. Document Revised: 10/28/2021 Document Reviewed: 10/28/2021 [employer] Patient Education 2023 [employer]. Follow Up Care 04/04/2025 08:13:39 With:AUTUMN OLIVAREZ [facility] Address: When: Unknown [facility] 04-04-2025 Note Patient Education Infectious Disease Pharyngitis Pharyngitis is a sore throat (pharynx). This is when there is redness, pain, and swelling in your throat. Most of the time, this condition gets better on its own. In some cases, you may need medicine. What are the causes? An infection from a virus. ??? An infection from bacteria. ??? Allergies. What increases the risk? Being 5?24 years old. ??? Being in crowded environments. These include: ? Daycares. ? Schools. ? Dormitories. ??? Living in a place with cold temperatures outside. ??? Having a weakened disease-fighting (immune) system. What are the signs or symptoms? Symptoms may vary depending on the cause. Common symptoms include: ??? Sore throat. ??? Tiredness (fatigue). ??? Low-grade fever. ??? Stuffy nose. ??? Cough. ??? Headache. Other symptoms may include: ??? Glands in the neck (lymph nodes) that are swollen. ??? Skin rashes. ??? Film on the throat or tonsils. This can be caused by an infection from bacteria. ??? Vomiting. ??? Red, itchy eyes. ??? Loss of appetite. ??? Joint pain and muscle aches. ??? Tonsils that are temporarily bigger than usual (enlarged). How is this treated? Many times, treatment is not needed. This condition usually gets better in 3?4 days without treatment. If the infection is caused by a bacteria, you may be need to take antibiotics. Follow these instructions at home: Medicines ??? Take yxzs-xwg-dsrkosw and prescription medicines only as told by your doctor. ??? If you were prescribed an antibiotic medicine, take it as told by your doctor. Do not stop taking the antibiotic even if you start to feel better. ??? Use throat lozenges or sprays to soothe your throat as told by your doctor. ??? Children can get pharyngitis. Do not give your child aspirin. Managing pain To help with pain, try: ??? Sipping warm liquids, such as: ? Broth. ? Herbal tea. ? Warm water. ??? Eating or drinking cold or frozen liquids, such as frozen ice pops. ??? Rinsing your mouth (gargle) with a salt water mixture 3?4 times a day or as needed. ? To make salt water, dissolve ??1 tsp (3?6 g) of salt in 1 cup (237 mL) of warm water. ? Do not swallow this mixture. ??? Sucking on hard candy or throat lozenges. ??? Putting a cool-mist humidifier in your bedroom at night to moisten the air. ??? Sitting in the bathroom with the door closed for 5?10 minutes while you run hot water in the shower. General instructions ??? Do not smoke or use any products that contain nicotine or tobacco. If you need help quitting, ask your doctor. ??? Rest as told by your doctor. ??? Drink enough fluid to keep your pee (urine) pale yellow. How is this prevented? Wash your hands often for at least 20 seconds with soap and water. If soap and water are not available, use hand package delivery driver. ??? Do not touch your eyes, nose, or mouth with unwashed hands. Wash hands after touching these areas. ??? Do not share cups or eating utensils. ??? Avoid close contact with people who are sick. Contact a doctor if: ??? You have large, tender lumps in your neck. ??? You have a rash. ??? You cough up green, yellow-brown, or bloody spit. Get help right away if: ??? You have a stiff neck. ??? You drool or cannot swallow liquids. ??? You cannot drink or take medicines without vomiting. ??? You have very bad pain that does not go away with medicine. ??? You have problems breathing, and it is not from a stuffy nose. ??? You have new pain and swelling in your knees, ankles, wrists, or elbows. These symptoms may be an emergency. Get help right away. Call your local emergency services (911 in the [place] ??? Do not wait to see if the symptoms will go away. ??? Do not drive yourself to the hospital. Summary ??? Pharyngitis is a sore throat (pharynx). This is when there is redness, pain, and swelling in your throat. ??? Most of the time, pharyngitis gets better on its own. Sometimes, you may need medicine. ??? If you were prescribed an antibiotic medicine, take it as told by your doctor. Do not stop taking the antibiotic even if you start to feel better. This information is not intended to replace advice given to you by your health care provider. Make sure you discuss any questions you have with your health care provider. Document Revised: 10/20/2021 Document Reviewed: 10/20/2021 Elsevier Patient Education ? 2023 [employer] Viral Respiratory Infection A viral respiratory infection is an illness that affects parts of the body that are used for breathing. These include the lungs, nose, and throat. It is caused by a germ called a virus. Some examples of this kind of infection are: ??? A cold. ??? The flu (influenza). ??? A respiratory syncytial virus (RSV) infection. What are the causes? This condition is caused by (more content not included)... [facility] 11-25-2024 History of Present illness Narrative Skin Check Location: Patient requests a skin examination of the face and arms Dermatologic history: history of Actinic Keratosis Last visit: 1 year ago Established patient Lesions: Location: left eyebrow Duration: months Quality: denies pain, denies itch, denies bleeding Modifying factors: none Associated symptoms: rough Treatments: LN2 on 11/23/2023. Patient reported lesion resolved and now returned. Lesions: Location: neck Duration: months Quality: itchy Modifying factors: none Associated symptoms: skin colored growths Treatments: none All pertinent medical history, medications, and allergies were reviewed. General Exam: alert, oriented to person, place, and time, normal affect, well appearing Unaccompanied A complete skin exam was offered, pt declined. Scalp, Examined Head, Face Examined Neck Examined Chest not Examined Back not Examined Abdomen not Examined Right arm Examined Left arm Examined Hands Examined Digits,nails: Examined Patient wearing nail sinhala, Denies dark streaks under finger nails Lymphatics: Skin Exam 1. MELANOCYTIC NEVUS OF FACE, OTHER LOCATION Right Zygomatic Area Scattered benign appearing, regular brown to light brown melanocytic papules and macules with similar morphology Counseled regarding these benign growths. Rarely, a nevus can develop into malignant melanoma, so any changing nevi should be promptly re-evaluated. 2. SEBORRHEIC KERATOSIS Mid Parietal Scalp Stuck on verrucous, avelar-brown papules and plaques. Patient was counseled regarding these benign growths. Removal is normally not necessary, but they may be removed if they are symptomatic or for cosmetic reasons. 3. LENTIGINES Generalized Scattered avelar macules in sun-exposed areas. The patient was informed that lentigines are benign pigmented lesions that occur on sun-exposed and sun-damaged skin. No treatment is necessary. Recommended regular use of broad spectrum sunscreen SPF 30 or higher 4. SEBORRHEIC KERATOSIS, INFLAMED (2) Left Supraclavicular Area, Right Anterior Neck [place] and brown stuck on verrucous scaly papule with surrounding erythema The patient was informed that symptomatic seborrheic keratoses are benign growths that become inflamed, itchy, tender, traumatized, caught on clothing, or bleed. Symptomatic lesions can be treated with cryotherapy or curretage. Thicker lesions treated with cryotherapy may require more than one treatment. The patient was instructed to notify the office if abnormal redness or tenderness develops at the treatment site. Cryotherapy today, see procedure note. Diagnosis: Inflamed seborrheic keratosis Indication: Inflamed Consent: Verbal consent was obtained and risks were discussed, including, but not limited to risks of scarring, darker or shipping technician pigmentary changes, recurrence, incomplete removal and infection. Method: Liquid nitrogen was used to treat the lesion(s) with two 5-10 second freeze-thaw cycles Number of lesions treated: 2 Post-procedure instructions: Instructions were given orally and in writing. The office will be contacted if the lesion fails to resolve despite treatment, or if a side effect develops such as abnormal crusting, scabbing, redness or tenderness Cryotherapy, skin lesion - Left Supraclavicular Area, Right Anterior Neck 5. ACTINIC KERATOSIS Left Eyebrow Erythematous scaly papules Patient was counseled regarding these sun-induced growths that can develop into squamous cell carcinoma if left untreated. Discussed treatment options, including cryotherapy and topical preparations. It was emphasized that any treated lesions that fail to resolve should be re-evaluated. Patient elected for treatment with Efudex as this has become a chronic issue. Educated on Efudex treatment. Apply to left eyebrow and okay to spot treat twice a day for two weeks. Discussed that treated areas will become red, crusty, and inflamed. If areas become too uncomfortable, patient may use OTC hydrocortisone cream to help decrease irritation and can discontinue treatment early. Sun exposure should be avoided during treatment. Patient instructed to contact office for any questions or issues during treatment. Lesions that fail to resolve once treated area is healed should be re-evaluated in the office. Handout given to patient. If medication is too expensive do not fill, contact office. Biopsy is in reserve if lesion fails to resolve in 4 weeks - patient instructed to call if area does not resolve. fluorouracil (Efudex) 5 % cream - Left Eyebrow Apply to directed areas on left eyebrow bid x 14 days Next Visit: 1 year skin exam documented in this encounter [facility] 09-19-2024 Note Patient Education Infectious Disease Community-Acquired Pneumonia, Adult Pneumonia is an infection of the lungs. It causes irritation and swelling in the airways of the lungs. Mucus and fluid may also build up inside the airways. This may cause coughing and trouble breathing. One type of pneumonia can happen while you are in a hospital. A different type can happen when you are not in a hospital (community-acquired pneumonia). What are the causes? This condition is caused by germs (viruses, bacteria, or fungi). Some types of germs can spread from person to person. Pneumonia is not thought to spread from person to person. What increases the risk? You have a long-term (chronic) disease, such as: ? Disease of the lungs. This may be chronic obstructive pulmonary disease (COPD) or asthma. ? Heart failure. ? Cystic fibrosis. ? Diabetes. ? Kidney disease. ? Sickle cell disease. ? HIV. ??? You have other health problems, such as: ? Your body's defense system (immune system) is weak. ? A condition that may cause you to breathe in fluids from your mouth and nose. ??? You had your spleen taken out. ??? You do not take good care of your teeth and mouth (poor dental hygiene). ??? You use or have used tobacco products. ??? You go where the germs that cause this illness are common. ??? You are older than 65 years of age. What are the signs or symptoms? A cough. ??? A fever. ??? Sweating or chills. ??? Chest pain, often when you breathe deeply or cough. ??? Breathing problems, such as: ? Fast breathing. ? Trouble breathing. ? Shortness of breath. ??? Feeling tired (fatigued). ??? Muscle aches. How is this treated? Treatment for this condition depends on many things, such as: ??? The cause of your illness. ??? Your medicines. ??? Your other health problems. Most adults can be treated at home. Sometimes, treatment must happen in a hospital. ??? Treatment may include medicines to kill germs. ??? Medicines may depend on which germ caused your illness. Very bad pneumonia is rare. If you get it, you may: ??? Have a machine to help you breathe. ??? Have fluid taken away from around your lungs. Follow these instructions at home: Medicines ??? Take wxsj-svc-dvpfqaz and prescription medicines only as told by your doctor. ??? Take cough medicine only if you are losing sleep. Cough medicine can keep your body from taking mucus away from your lungs. ??? If you were prescribed antibiotics, take them as told by your doctor. Do not stop taking them even if you start to feel better. Lifestyle ??? Do not smoke or use any products that contain nicotine or tobacco. If you need help quitting, ask your doctor. ??? Do not drink alcohol. ??? Eat a healthy diet. This includes a lot of vegetables, fruits, whole grains, low-fat dairy products, and low-fat (lean) protein. General instructions ??? Rest a lot. Sleep for at least 8 hours each night. ??? Sleep with your head and neck raised. Put a few pillows under your head or sleep in a reclining chair. ??? Return to your normal activities as told by your doctor. Ask your doctor what activities are safe for you. ??? Drink enough fluid to keep your pee (urine) pale yellow. ??? If your throat is sore, gargle with a mixture of salt and water 3?4 times a day or as needed. To make salt water, completely dissolve ??1 tsp (3?6 g) of salt in 1 cup (237 mL) of warm water. ??? Keep all follow-up visits. How is this prevented? Getting the pneumonia shot (vaccine). These shots have different types and schedules. Ask your doctor what works best for you. Think about getting this shot if: ? You are older than 65 years of age. ? You are 19?65 years of age and: ? You are being treated for cancer. ? You have long-term lung disease. ? You have other problems that affect your body's defense system. Ask your doctor if you have one of these. ??? Getting your flu shot every year. Ask your doctor which type of shot is best for you. ??? Going to the dentist as often as told. ??? Washing your hands often with soap and water for at least 20 seconds. If you cannot use soap and water, use hand package delivery driver. Contact a doctor if: ??? You have a fever. ??? You lose sleep because your cough medicine does not help. Get help right away if: ??? You are short of breath and this gets worse. ??? You have more chest pain. ??? Your sickness gets worse. This is very serious if: ? You are an older adult. ? Your body's defense system is weak. ??? You cough up blood. These symptoms may be an emergency. Get help right away. Call 911. ??? Do not wait to see if the symptoms will go away. ??? Do not drive yourself to the hospital. Summary ??? Pneumonia is an infection of the lungs. ??? Community-acquired pneumonia affects (more content not included)... [facility] 09-18-2024 Hospital Discharge instructions Follow Up Care 09/18/2024 08:11:10 With:AUTUMN OLIVAREZ [facility] Address:Unknown When: Unknown [facility] 09-11-2024 Hospital Discharge instructions Patient Education 09/11/2024 09:49:24 BMI for Adults BMI for Adults Body mass index (BMI) is a number found using a person's weight and height. BMI can help tell how much of a person's weight is made up of fat. BMI does not measure body fat directly. It is used instead of tests that directly measure body fat, which can be difficult and expensive. What are BMI measurements used for? BMI is useful to: Find out if your weight puts you at higher risk for medical problems. Help recommend changes, such as in diet and exercise. This can help you reach a healthy weight. BMI screening can be done again to see if these changes are working. How is BMI calculated? Your height and weight are measured. The BMI is found from those numbers. This can be done with [place] or metric measurements. Note that charts and online BMI calculators are available to help you find your BMI quickly and easily without doing these calculations. To calculate your BMI in [place] measurements: 1.Measure your weight in pounds (lb). 2.Multiply the number of pounds by 703. So, for an adult who weighs 150 lb, multiply that number by 703: 150 x 703, which equals 105,450. 3.Measure your height in inches. Then multiply that number by itself to get a measurement called inches squared. So, for an adult who is 70 inches tall, the inches squared measurement is 70 inches x 70 inches, which equals 4,900 inches squared. 4.Divide the total from step 2 (number of lb x 703) by the total from step 3 (inches squared): 105,450 4,900 = 21.5. This is your BMI. To calculate your BMI in metric measurements: 1.Measure your weight in kilograms (kg). For this example, the weight is 70 kg. 2.Measure your height in meters (m). Then multiply that number by itself to get a measurement called meters squared. So, for an adult who is 1.75 m tall, the meters squared measurement is 1.75 m x 1.75 m, which equals 3.1 meters squared. 3.Divide the number of kilograms (your weight) by the meters squared number. In this example: 70 3.1 = 22.6. This is your BMI. What do the results mean? BMI charts are used to see if you are underweight, normal weight, overweight, or obese. The following guidelines will be used: Underweight: BMI less than 18.5. Normal weight: BMI between 18.5 and 24.9. Overweight: BMI between 25 and 29.9. Obese: BMI of 30 or above. BMI is a tool and cannot diagnose a condition. Talk with your health care provider about what your BMI means for you. Keep these notes in mind: Weight includes fat and muscle. Someone with a muscular build, such as an athlete, may have a BMI that is higher than 24.9. In cases like these, BMI is not a correct measure of body fat. If you have a BMI of 25 or higher, your provider may need to do more testing to find out if excess body fat is the cause. BMI is measured the same way for males and females. Females usually have more body fat than males of the same height and weight. Where to find more information For more information about BMI, including tools to quickly find your BMI, go to: Centers for Disease Control and Prevention: cdc.gov [place] [employer]: heart.org National Heart, Lung, and Blood [place]: nhlbi.nih.gov This information is not intended to replace advice given to you by your health care provider. Make sure you discuss any questions you have with your health care provider. Document Revised: 04/13/2023 Document Reviewed: 04/06/2023 [employer] Patient Education 2023 [employer]. 09/11/2024 09:49:22 Viral Respiratory Infection Viral Respiratory Infection A respiratory infection is an illness that affects part of the respiratory system, such as the lungs, nose, or throat. A respiratory infection that is caused by a virus is called a viral respiratory infection. Common types of viral respiratory infections include: A cold. The flu (influenza). A respiratory syncytial virus (RSV) infection. What are the causes? This condition is caused by a virus. The virus may spread through contact with droplets or direct contact with infected people or their mucus or secretions. The virus may spread from person to person (is contagious). What are the signs or symptoms? Symptoms of this condition include: A stuffy or runny nose. A sore throat or cough. Shortness of breath or difficulty breathing. Yellow or green mucus (sputum). Other symptoms may include: A fever. Sweating or chills. Fatigue. Achy muscles. A headache. How is this diagnosed? This condition may be diagnosed based on: Your symptoms. A physical exam. Testing of secretions from the nose or throat. Chest X-ray. How is this treated? This condition may be treated with medicines, such as: Antiviral medicine. This may shorten the length of time a person has symptoms. Expectorants. These make it easier to cough up mucus. Decongestant nasal sprays. Acetaminophen or NSAIDs, such as ibuprofen, to relieve fever and pain. Antibiotic medicines are not prescribed for viral infections.This is because antibiotics are designed to kill bacteria. They do not kill viruses. Follow these instructions at home: Managing pain and congestion Take lisd-dyi-jaoklji and prescription medicines only as told by your health care provider. If you have a sore throat, gargle with a mixture of salt and water 3 4 times a day or as needed. To make salt water, completely dissolve 1 tsp (3 6 g) of salt in 1 cup (237 mL) of warm water. Use nose drops made from salt water to ease congestion and soften raw skin around your nose. Take 2 tsp (10 mL) of honey at bedtime to lessen coughing at night. ?Do not give honey to children who are younger than 1 year. Drink enough fluid to keep your urine pale yellow. This helps prevent dehydration and helps loosen up mucus. General instructions Rest as much as possible. Do not drink alcohol. Do not use any products that contain nicotine or tobacco. These products include cigarettes, chewing tobacco, and vaping devices, such as e-cigarettes. If you need help quitting, ask your health care provider. Keep all follow-up visits. This is important. How is this prevented? Get an annual flu shot. You may get the flu shot in late summer, fall, or winter. Ask your health care provider when you should get your flu shot. Avoid spreading your infection to other people. If you are sick: ?Wash your hands with soap and water often, especially after you cough or sneeze. Wash for at least 20 seconds. If soap and water are not available, use alcohol-based hand package delivery driver. ?Cover your mouth when you cough. Cover your nose and mouth when you sneeze. ?Do not share cups or eating utensils. ?Clean commonly used objects often. Clean commonly touched surfaces. ?Stay home from work or school as told by your health care provider. Avoid contact with people who are sick during cold and flu season. This is generally fall and winter. Contact a health care provider if: Your symptoms last for 10 days or longer. Your symptoms get worse over time. You have severe sinus pain in your face or forehead. The glands in your jaw or neck become very swollen. You have shortness of breath. Get help right away if you: Feel pain or pressure in your chest. Have trouble breathing. Faint or feel like you will faint. Have severe and persistent vomiting. Feel confused or disoriented. These symptoms may represent a serious problem that is an emergency. Do not wait to see if the symptoms will go away. Get medical help right away. Call your local emergency services (911 in the [place] Do not drive yourself to the hospital. Summary A respiratory infection is an illness that affects part of the respiratory system, such as the lungs, nose, or throat. A respiratory infection that is caused by a virus is called a viral respiratory infection. Common types of viral respiratory infections include a cold, influenza, and respiratory syncytial virus (RSV) infection. Symptoms of this condition include a stuffy or runny nose, cough, fatigue, achy muscles, sore throat, and fevers or chills. Antibiotic medicines are not prescribed for viral infections. This is because antibiotics are designed to kill bacteria. They are not effective against viruses. This information is not intended to replace advice given to you by your health care provider. Make sure you discuss any questions you have with your health care provider. Document Revised: 10/28/2021 Document Reviewed: 10/28/2021 [employer] Patient Education 2023 [employer]. 09/11/2024 09:49:19 Acute Bronchitis, Adult Acute Bronchitis, Adult Acute bronchitis is sudden inflammation of the main airways (bronchi) that come off the windpipe (trachea) in the lungs. The swelling causes the airways to get smaller and make more mucus than normal. This can make it hard to breathe and can cause coughing or noisy breathing (wheezing). Acute bronchitis may last several weeks. The cough may last longer. Allergies, asthma, and exposure to smoke may make the condition worse. What are the causes? This condition can be caused by germs and by substances that irritate the lungs, including: Cold and flu viruses. The most common cause of this condition is the virus that causes the common cold. Bacteria. This is less common. Breathing in substances that irritate the lungs, including: ?Smoke from cigarettes and other forms of tobacco. ?Dust and pollen. ?Fumes from household cleaning products, gases, or burned fuel. ?Indoor or outdoor air pollution. What increases the risk? The following factors may make you more likely to develop this condition: A weak body's defense system, also called the immune system. A condition that affects your lungs and breathing, such as asthma. What are the signs or symptoms? Common symptoms of this condition include: Coughing. This may bring up clear, yellow, or green mucus from your lungs (sputum). Wheezing. Runny or stuffy nose. Having too much mucus in your lungs (chest congestion). Shortness of breath. Aches and pains, including sore throat or chest. How is this diagnosed? This condition is usually diagnosed based on: Your symptoms and medical history. A physical exam. You may also have other tests, including tests to rule out other conditions, such as pneumonia. These tests include: A test of lung function. Test of a mucus sample to look for the presence of bacteria. Tests to check the oxygen level in your blood. Blood tests. Chest X-ray. How is this treated? Most cases of acute bronchitis clear up over time without treatment. Your health care provider may recommend: Drinking more fluids to help thin your mucus so it is easier to cough up. Taking inhaled medicine (inhaler) to improve air flow in and out of your lungs. Using a vaporizer or a humidifier. These are machines that add water to the air to help you breathe better. Taking a medicine that thins mucus and clears congestion (expectorant). Taking a medicine that prevents or stops coughing (cough suppressant). It is not common to take an antibiotic medicine for this condition. Follow these instructions at home: Take xpxu-seq-xgrfvgr and prescription medicines only as told by your health care provider. Use an inhaler, vaporizer, or humidifier as told by your health care provider. Take two teaspoons (10 mL) of honey at bedtime to lessen coughing at night. Drink enough fluid to keep your urine pale yellow. Do not use any products that contain nicotine or tobacco. These products include cigarettes, chewing tobacco, and vaping devices, such as e-cigarettes. If you need help quitting, ask your health care provider. Get plenty of rest. Return to your normal activities as told by your health care provider. Ask your health care provider what activities are safe for you. Keep all follow-up visits. This is important. How is this prevented? To lower your risk of getting this condition again: Wash your hands often with soap and water for at least 20 seconds. If soap and water are not available, use hand package delivery driver. Avoid contact with people who have cold symptoms. Try not to touch your mouth, nose, or eyes with your hands. Avoid breathing in smoke or chemical fumes. Breathing smoke or chemical fumes will make your condition worse. Get the flu shot every year. Contact a health care provider if: Your symptoms do not improve after 2 weeks. You have trouble coughing up the mucus. Your cough keeps you awake at night. You have a fever. Get help right away if you: Cough up blood. Feel pain in your chest. Have severe shortness of breath. Faint or keep feeling like you are going to faint. Have a severe headache. Have a fever or chills that get worse. These symptoms may represent a serious problem that is an emergency. Do not wait to see if the symptoms will go away. Get medical help right away. Call your local emergency services (911 in the [place] Do not drive yourself to the hospital. Summary Acute bronchitis is inflammation of the main airways (bronchi) that come off the windpipe (trachea) in the lungs. The swelling causes the airways to get smaller and make more mucus than normal. Drinking more fluids can help thin your mucus so it is easier to cough up. Take ptct-dev-pxamhee and prescription medicines only as told by your health care provider. Do not use any products that contain nicotine or tobacco. These products include cigarettes, chewing tobacco, and vaping devices, such as e-cigarettes. If you need help quitting, ask your health care provider. Contact a health care provider if your symptoms do not improve after 2 weeks. This information is not intended to replace advice given to you by your health care provider. Make sure you discuss any questions you have with your health care provider. Document Revised: 11/03/2022 Document Reviewed: 11/24/2021 [employer] Patient Education 2023 [employer]. 09/11/2024 09:49:17 Upper Respiratory Infection, Adult Upper Respiratory Infection, Adult An upper respiratory infection (URI) is a common viral infection of the nose, throat, and upper air passages that lead to the lungs. The most common type of URI is the common cold. URIs usually get better on their own, without medical treatment. What are the causes? A URI is caused by a virus. You may catch a virus by: Breathing in droplets from an infected person's cough or sneeze. Touching something that has been exposed to the virus (is contaminated) and then touching your mouth, nose, or eyes. What increases the risk? You are more likely to get a URI if: You are very young or very old. You have close contact with others, such as at work, school, or a health care facility. You smoke. You have long-term (chronic) heart or lung disease. You have a weakened disease-fighting system (immune system). You have nasal allergies or asthma. You are experiencing a lot of stress. You have poor nutrition. What are the signs or symptoms? A URI usually involves some of the following symptoms: Runny or stuffy (congested) nose. Cough. Sneezing. Sore throat. Headache. Fatigue. Fever. Loss of appetite. Pain in your forehead, behind your eyes, and over your cheekbones (sinus pain). Muscle aches. Redness or irritation of the eyes. Pressure in the ears or face. How is this diagnosed? This condition may be diagnosed based on your medical history and symptoms, and a physical exam. Your health care provider may use a swab to take a mucus sample from your nose (nasal swab). This sample can be tested to determine what virus is causing the illness. How is this treated? URIs usually get better on their own within 7 10 days. Medicines cannot cure URIs, but your health care provider may recommend certain medicines to help relieve symptoms, such as: Pobu-ged-fpgnvdw cold medicines. Cough suppressants. Coughing is a type of defense against infection that helps to clear the respiratory system, so take these medicines only as recommended by your health care provider. Fever-reducing medicines. Follow these instructions at home: Activity Rest as needed. If you have a fever, stay home from work or school until your fever is gone or until your health care provider says your URI cannot spread to other people (is no longer contagious). Your health care provider may have you wear a face mask to prevent your infection from spreading. Relieving symptoms Gargle with a mixture of salt and water 3 4 times a day or as needed. To make salt water, completely dissolve 1 tsp (3 6 g) of salt in 1 cup (237 mL) of warm water. Use a cool-mist humidifier to add moisture to the air. This can help you breathe more easily. Eating and drinking Drink enough fluid to keep your urine pale yellow. Eat soups and other clear broths. General instructions Take ffxb-ihh-lprbjpb and prescription medicines only as told by your health care provider. These include cold medicines, fever reducers, and cough suppressants. Do not use any products that contain nicotine or tobacco. These products include cigarettes, chewing tobacco, and vaping devices, such as e-cigarettes. If you need help quitting, ask your health care provider. Stay away from secondhand smoke. Stay up to date on all immunizations, including the yearly (annual) flu vaccine. Keep all follow-up visits. This is important. How to prevent the spread of infection to others URIs can be contagious. To prevent the infection from spreading: Wash your hands with soap and water for at least 20 seconds. If soap and water are not available, use hand package delivery driver. Avoid touching your mouth, face, eyes, or nose. Cough or sneeze into a tissue or your sleeve or elbow instead of into your hand or into the air. Contact a health care provider if: You are getting worse instead of better. You have a fever or chills. Your mucus is brown or red. You have yellow or brown discharge coming from your nose. You have pain in your face, especially when you bend forward. You have swollen neck glands. You have pain while swallowing. You have white areas in the back of your throat. Get help right away if: You have shortness of breath that gets worse. You have severe or persistent: ?Headache. ?Ear pain. ?Sinus pain. ?Chest pain. You have chronic lung disease along with any of the following: ?Making high-pitched whistling sounds when you breathe, most often when you breathe out (wheezing). ?Prolonged cough (more than 14 days). ?Coughing up blood. ?A change in your usual mucus. You have a stiff neck. You have changes in your: ?Vision. ?Hearing. ?Thinking. ?Mood. These symptoms may be an emergency. Get help right away. Call 911. Do not wait to see if the symptoms will go away. Do not drive yourself to the hospital. Summary An upper respiratory infection (URI) is a common infection of the nose, throat, and upper air passages that lead to the lungs. A URI is caused by a virus. URIs usually get better on their own within 7 10 days. Medicines cannot cure URIs, but your health care provider may recommend certain medicines to help relieve symptoms. This information is not intended to replace advice given to you by your health care provider. Make sure you discuss any questions you have with your health care provider. Document Revised: 02/23/2022 Document Reviewed: 02/23/2022 [employer] Patient Education 2023 [employer] Follow Up Care 09/11/2024 07:28:31 With:AUTUMN OLIVAREZ [facility] Address: When:1 to 2 weeks only if needed [facility] 09-11-2024 Note Patient Education Infectious Disease Viral Respiratory Infection A respiratory infection is an illness that affects part of the respiratory system, such as the lungs, nose, or throat. A respiratory infection that is caused by a virus is called a viral respiratory infection. Common types of viral respiratory infections include: ??? A cold. ??? The flu (influenza). ??? A respiratory syncytial virus (RSV) infection. What are the causes? This condition is caused by a virus. The virus may spread through contact with droplets or direct contact with infected people or their mucus or secretions. The virus may spread from person to person (is contagious). What are the signs or symptoms? Symptoms of this condition include: ??? A stuffy or runny nose. ??? A sore throat or cough. ??? Shortness of breath or difficulty breathing. ??? Yellow or green mucus (sputum). Other symptoms may include: ??? A fever. ??? Sweating or chills. ??? Fatigue. ??? Achy muscles. ??? A headache. How is this diagnosed? This condition may be diagnosed based on: ??? Your symptoms. ??? A physical exam. ??? Testing of secretions from the nose or throat. ??? Chest X-ray. How is this treated? This condition may be treated with medicines, such as: ??? Antiviral medicine. This may shorten the length of time a person has symptoms. ??? Expectorants. These make it easier to cough up mucus. ??? Decongestant nasal sprays. ??? Acetaminophen or NSAIDs, such as ibuprofen, to relieve fever and pain. Antibiotic medicines are not prescribed for viral infections.This is because antibiotics are designed to kill bacteria. They do not kill viruses. Follow these instructions at home: Managing pain and congestion ??? Take [id number] and prescription medicines only as told by your health care provider. ??? If you have a sore throat, gargle with a mixture of salt and water 3?4 times a day or as needed. To make salt water, completely dissolve ??1 tsp (3?6 g) of salt in 1 cup (237 mL) of warm water. ??? Use nose drops made from salt water to ease congestion and soften raw skin around your nose. ??? Take 2 tsp (10 mL) of honey at bedtime to lessen coughing at night. ? Do not give honey to children who are younger than 1 year. ??? Drink enough fluid to keep your urine pale yellow. This helps prevent dehydration and helps loosen up mucus. General instructions ??? Rest as much as possible. ??? Do not drink alcohol. ??? Do not use any products that contain nicotine or tobacco. These products include cigarettes, chewing tobacco, and vaping devices, such as e-cigarettes. If you need help quitting, ask your health care provider. ??? Keep all follow-up visits. This is important. How is this prevented? Get an annual flu shot. You may get the flu shot in late summer, fall, or winter. Ask your health care provider when you should get your flu shot. ??? Avoid spreading your infection to other people. If you are sick: ? Wash your hands with soap and water often, especially after you cough or sneeze. Wash for at least 20 seconds. If soap and water are not available, use alcohol-based hand package delivery driver. ? Cover your mouth when you cough. Cover your nose and mouth when you sneeze. ? Do not share cups or eating utensils. ? Clean commonly used objects often. Clean commonly touched surfaces. ? Stay home from work or school as told by your health care provider. ??? Avoid contact with people who are sick during cold and flu season. This is generally fall and winter. Contact a health care provider if: ??? Your symptoms last for 10 days or longer. ??? Your symptoms get worse over time. ??? You have severe sinus pain in your face or forehead. ??? The glands in your jaw or neck become very swollen. ??? You have shortness of breath. Get help right away if you: ??? Feel pain or pressure in your chest. ??? Have trouble breathing. ??? Faint or feel like you will faint. ??? Have severe and persistent vomiting. ??? Feel confused or disoriented. These symptoms may represent a serious problem that is an emergency. Do not wait to see if the symptoms will go away. Get medical help right away. Call your local emergency services (911 in the [place] Do not drive yourself to the hospital. Summary ??? A respiratory infection is an illness that affects part of the respiratory system, such as the lungs, nose, or throat. A respiratory infection that is caused by a virus is called a viral respiratory infection. ??? Common types of viral respiratory infections include a cold, influenza, and respiratory syncytial virus (RSV) infection. ??? Symptoms of this condition include a stuffy or runny nose, cough, fatigue, achy muscles, sore throat, and fevers or chills. ??? Antibiotic medicines are not prescribed for viral infections. This is because antibiotics (more content not included)... [facility] 09-10-2024 History of Present illness Narrative Subjective Patient ID: Araceli Catherine is a 53 y.o. female who presents for Ear Problem (3 week eric TM perf) HPI 53-year-old white female presents today for recheck of possible tympanic membrane perforation on the left. Patient describes acute loss of hearing and sensation of fluid in her left ear. Recently started on antibiotics for tympanic membrane perforation. Family physician revealed evidence of bleeding from her left ear. No previous history of similar difficulties. Presents today for further evaluation and therapy. Review of Systems Patient denies any fever. Does describe some difficulties with nasal congestion recently. Has had no difficulties with recent air travel. Does describe a history of allergic rhinitis. The rest of her review of systems is negative. Allergies as of 09/10/2024 - Reviewed 09/10/2024 Allergen Reaction Noted Penicillamine GI intolerance 07/10/2023 Penicillins 07/10/2023 Morphine Hives, Itching, Other, and Rash 07/10/2023 Past Medical History: Diagnosis Date Abnormal Pap smear of cervix Appendicitis 1985 COVID-19 Dizziness 07/17/2024 Fibroid Headache HL (hearing loss) HPV (human papilloma virus) infection Menopause ovarian failure Ovarian cyst Perforated eardrum, left Tinnitus Always Vaginal high risk human papillomavirus (HPV) DNA test positive Current Outpatient Medications: cholecalciferol (Vitamin D3) 25 MCG (1000 UT) tablet, , Disp: , Rfl: fluticasone (Flonase Allergy Relief) 50 MCG/ACT nasal spray, , Disp: , Rfl: ibuprofen 800 MG tablet, Take 800 mg by mouth every 6 (six) hours, Disp: , Rfl: loratadine (Claritin) 10 MG tablet, if needed, Disp: , Rfl: Ventolin HFA 108 (90 Base) MCG/ACT inhaler, if needed, Disp: , Rfl: zinc 100 MG tablet, , Disp: , Rfl: cyclobenzaprine (Flexeril) 5 MG tablet, Take 5 mg by mouth (Patient not taking: Reported on 09/10/2024), Disp: , Rfl: Past Surgical History: Procedure Laterality Date APPENDECTOMY 1985 CERVICAL CONIZATION W/ LASER SECTION, LOW TRANSVERSE COLPOSCOPY with biopsy TONSILLECTOMY TOTAL ABDOMINAL HYSTERECTOMY W/ BILATERAL SALPINGOOPHORECTOMY 2001 VAGINAL AFTER SECTION Social History Socioeconomic History Marital status: Spouse name: Not on file Number of children: Not on file Years of education: Not on file Highest education level: Not on file Occupational History Not on file Tobacco Use Smoking status: Former Current packs/day: 0.25 Average packs/day: 0.3 packs/day for 10.0 years (2.5 ttl pk-yrs) Types: Cigarettes Smokeless tobacco: Never Substance and Sexual Activity Alcohol use: Not Currently Alcohol/week: 2.0 standard drinks of alcohol Types: 2 Standard drinks or equivalent per week Comment: Caffeine intake: >4 cups per day coffee Drug use: Never Sexual activity: Yes Partners: Male control/protection: Post-menopausal Other Topics Concern Not on file Social History Narrative Not on file Social Drivers of Health Financial Resource Strain: Not on file Food Insecurity: Not on file Transportation Needs: Not on file Physical Activity: Not on file Stress: Not on file Social Connections: Not on file Intimate Partner Violence: Not on file Housing Stability: Not on file Objective ENT Physical Exam General Examination: General overview: Normal, age-appropriate, no evidence of distress Head: Normocephalic, atraumatic Eyes: Pupils are equally round and reactive to light and accommodation, extraocular muscles are intact Ears: External ear architecture within normal limits, ear canals are patent, ears are examined under binocular microscopy. tympanic membranes are intact. Right tympanic membrane is intact. On the left, the area of perforation is healed No evidence of fluid. No evidence of open perforation at this time. Nose: External nose unremarkable, nares patent, septum intact, mild to moderate congestion. Oral cavity: Mucosa moist, no evidence of ulcer, mass, or lesion Throat: Clear Neck/thyroid: Neck supple, full range of motion, no cervical lymphadenopathy, no evidence of thyromegaly Lymph nodes: No cervical lymphadenopathy Skin: Warm and dry, no evidence of suspicious lesions, no rash Heart: No jugular venous distention, point of maximal impulse normal Lungs: Good air movement, no audible wheezing, no shortness of breath Chest: Normal shape and expansion Abdomen: Normal, soft, nontender, nondistended Musculoskeletal: Cervical spine normal, full range of motion Extremities: No clubbing, cyanosis, or edema Peripheral pulses: 2+ radial, 2+ carotid Neurologic: Alert and oriented, cranial nerves 2-12 are grossly intact Psych: Alert and oriented, normal affect, no evidence of distress Assessment/Plan Diagnoses and all orders for this visit: Perforation of left tympanic membrane Comments: Appears to be completely healed, we will see her back as needed Non-recurrent acute suppurative otitis media of left ear with spontaneous rupture of tympanic membrane Comments: Currently stable, the patient will contact this office if she has another episode Chronic rhinitis Comments: Patient will continue steroid nasal spray and antihistamine documented in this encounter [facility] 08-09-2024 History of Present illness Narrative Subjective Patient ID: Araceli Catherine is a 53 y.o. female who presents for Ear Problem (2 week eric TM perf) HPI 53-year-old white female presents today for evaluation of possible tympanic membrane perforation on the left. Patient describes acute loss of hearing and sensation of fluid in her left ear. Recently started on antibiotics for tympanic membrane perforation. Family physician revealed evidence of bleeding from her left ear. No previous history of similar difficulties. Presents today for further evaluation and therapy. Review of Systems Patient denies any fever. Does describe some difficulties with nasal congestion recently. Continues to have irritation sensation the left ear. Does describe a history of allergic rhinitis. The rest of her review of systems is negative. Allergies as of 08/09/2024 - Reviewed 08/09/2024 Allergen Reaction Noted Penicillamine GI intolerance 07/10/2023 Penicillins 07/10/2023 Morphine Hives, Itching, Other, and Rash 07/10/2023 Past Medical History: Diagnosis Date Abnormal Pap smear of cervix Appendicitis 1985 COVID-19 Dizziness 07/17/2024 Fibroid Headache HL (hearing loss) HPV (human papilloma virus) infection Menopause ovarian failure Ovarian cyst Perforated eardrum, left Tinnitus Always Vaginal high risk human papillomavirus (HPV) DNA test positive Current Outpatient Medications: cholecalciferol (Vitamin D3) 25 MCG (1000 UT) tablet, , Disp: , Rfl: fluticasone (Flonase Allergy Relief) 50 MCG/ACT nasal spray, , Disp: , Rfl: ibuprofen 800 MG tablet, Take 800 mg by mouth every 6 (six) hours, Disp: , Rfl: loratadine (Claritin) 10 MG tablet, if needed, Disp: , Rfl: Ventolin HFA 108 (90 Base) MCG/ACT inhaler, if needed, Disp: , Rfl: zinc 100 MG tablet, , Disp: , Rfl: cyclobenzaprine (Flexeril) 5 MG tablet, Take 5 mg by mouth (Patient not taking: Reported on 08/09/2024), Disp: , Rfl: Past Surgical History: Procedure Laterality Date APPENDECTOMY 1985 CERVICAL CONIZATION W/ LASER SECTION, LOW TRANSVERSE COLPOSCOPY with biopsy TONSILLECTOMY TOTAL ABDOMINAL HYSTERECTOMY W/ BILATERAL SALPINGOOPHORECTOMY 2001 VAGINAL AFTER SECTION Social History Socioeconomic History Marital status: Spouse name: Not on file Number of children: Not on file Years of education: Not on file Highest education level: Not on file Occupational History Not on file Tobacco Use Smoking status: Former Current packs/day: 0.25 Average packs/day: 0.3 packs/day for 10.0 years (2.5 ttl pk-yrs) Types: Cigarettes Smokeless tobacco: Never Substance and Sexual Activity Alcohol use: Not Currently Alcohol/week: 2.0 standard drinks of alcohol Types: 2 Standard drinks or equivalent per week Comment: Caffeine intake: >4 cups per day coffee Drug use: Never Sexual activity: Yes Partners: Male control/protection: Post-menopausal Other Topics Concern Not on file Social History Narrative Not on file Social Drivers of Health Financial Resource Strain: Not on file Food Insecurity: Not on file Transportation Needs: Not on file Physical Activity: Not on file Stress: Not on file Social Connections: Not on file Intimate Partner Violence: Not on file Housing Stability: Not on file Objective ENT Physical Exam General Examination: General overview: Normal, age-appropriate, no evidence of distress Head: Normocephalic, atraumatic Eyes: Pupils are equally round and reactive to light and accommodation, extraocular muscles are intact Ears: External ear architecture within normal limits, ear canals are patent, tympanic membranes are intact. Right tympanic membrane is intact. On the left, the area of perforation is healing quite nicely. No evidence of fluid. No evidence of open perforation at this time. Nose: External nose unremarkable, nares patent, septum intact, no evidence of congestion. Oral cavity: Mucosa moist, no evidence of ulcer, mass, or lesion Throat: Clear Neck/thyroid: Neck supple, full range of motion, no cervical lymphadenopathy, no evidence of thyromegaly Lymph nodes: No cervical lymphadenopathy Skin: Warm and dry, no evidence of suspicious lesions, no rash Heart: No jugular venous distention, point of maximal impulse normal Lungs: Good air movement, no audible wheezing, no shortness of breath Chest: Normal shape and expansion Abdomen: Normal, soft, nontender, nondistended Musculoskeletal: Cervical spine normal, full range of motion Extremities: No clubbing, cyanosis, or edema Peripheral pulses: 2+ radial, 2+ carotid Neurologic: Alert and oriented, cranial nerves 2-12 are grossly intact Psych: Alert and oriented, normal affect, no evidence of distress Assessment/Plan Diagnoses and all orders for this visit: Perforation of left tympanic membrane Comments: Seems to be healing up very nicely. We will see her back in 3 weeks. Non-recurrent acute suppurative otitis media of left ear with spontaneous rupture of tympanic membrane documented in this encounter [facility] 07-23-2024 History of Present illness Narrative Subjective Patient ID: Araceli Catherine is a 53 y.o. female who presents for Ear Problem (New Patient : TM perf) HPI 53-year-old white female presents today for evaluation of possible tympanic membrane perforation on the left. Patient describes acute loss of hearing and sensation of fluid in her left ear. Recently started on antibiotics for tympanic membrane perforation. Family physician revealed evidence of bleeding from her left ear. No previous history of similar difficulties. Presents today for further evaluation and therapy. Review of Systems Patient denies any fever. Does describe some difficulties with nasal congestion recently. Not having any drainage from the ear. Does describe decreased hearing on the left side compared to the right. Does describe a history of allergic rhinitis. The rest of her review of systems is negative. Allergies as of 07/23/2024 - Reviewed 07/19/2024 Allergen Reaction Noted Penicillamine GI intolerance 07/10/2023 Penicillins 07/10/2023 Morphine Hives, Itching, Other, and Rash 07/10/2023 Past Medical History: Diagnosis Date Abnormal Pap smear of cervix Appendicitis 1985 COVID-19 Dizziness 07/17/2024 Fibroid Headache HL (hearing loss) HPV (human papilloma virus) infection Menopause ovarian failure Ovarian cyst Perforated eardrum, left Tinnitus Always Vaginal high risk human papillomavirus (HPV) DNA test positive Current Outpatient Medications: cholecalciferol (Vitamin D3) 25 MCG (1000 UT) tablet, , Disp: , Rfl: ibuprofen 800 MG tablet, Take 800 mg by mouth every 6 (six) hours, Disp: , Rfl: loratadine (Claritin) 10 MG tablet, if needed, Disp: , Rfl: Ventolin HFA 108 (90 Base) MCG/ACT inhaler, if needed, Disp: , Rfl: zinc 100 MG tablet, , Disp: , Rfl: cyclobenzaprine (Flexeril) 5 MG tablet, Take 5 mg by mouth (Patient not taking: Reported on 07/23/2024), Disp: , Rfl: doxycycline (Vibramycin) 100 MG capsule, , Disp: , Rfl: fluconazole (Diflucan) 150 MG tablet, , Disp: , Rfl: ofloxacin (Floxin) 0.3 % otic solution, Administer 5 drops into the left ear in the morning and 5 drops before bedtime. Do all this for 10 days., Disp: 5 mL, Rfl: 1 Past Surgical History: Procedure Laterality Date APPENDECTOMY 1985 CERVICAL CONIZATION W/ LASER SECTION, LOW TRANSVERSE COLPOSCOPY with biopsy TONSILLECTOMY TOTAL ABDOMINAL HYSTERECTOMY W/ BILATERAL SALPINGOOPHORECTOMY 2001 VAGINAL AFTER SECTION Social History Socioeconomic History Marital status: Spouse name: Not on file Number of children: Not on file Years of education: Not on file Highest education level: Not on file Occupational History Not on file Tobacco Use Smoking status: Former Current packs/day: 0.25 Average packs/day: 0.3 packs/day for 10.0 years (2.5 ttl pk-yrs) Types: Cigarettes Smokeless tobacco: Never Substance and Sexual Activity Alcohol use: Not Currently Alcohol/week: 2.0 standard drinks of alcohol Types: 2 Standard drinks or equivalent per week Comment: Caffeine intake: >4 cups per day coffee Drug use: Never Sexual activity: Yes Partners: Male control/protection: Post-menopausal Other Topics Concern Not on file Social History Narrative Not on file Social Drivers of Health Financial Resource Strain: Not on file Food Insecurity: Not on file Transportation Needs: Not on file Physical Activity: Not on file Stress: Not on file Social Connections: Not on file Intimate Partner Violence: Not on file Housing Stability: Not on file Objective ENT Physical Exam General Examination: General overview: Normal, age-appropriate, no evidence of distress Head: Normocephalic, atraumatic Eyes: Pupils are equally round and reactive to light and accommodation, extraocular muscles are intact Ears: External ear architecture within normal limits, ear canals are patent, tympanic membranes are intact. Left ear is examined under binocular microscopy. The tympanic membranes retracted and hyperemic. Evidence of middle ear effusion is noted. No evidence of open perforation at this time. Nose: External nose unremarkable, nares patent, septum intact, no evidence of congestion. Oral cavity: Mucosa moist, no evidence of ulcer, mass, or lesion Throat: Clear Neck/thyroid: Neck supple, full range of motion, no cervical lymphadenopathy, no evidence of thyromegaly Lymph nodes: No cervical lymphadenopathy Skin: Warm and dry, no evidence of suspicious lesions, no rash Heart: No jugular venous distention, point of maximal impulse normal Lungs: Good air movement, no audible wheezing, no shortness of breath Chest: Normal shape and expansion Abdomen: Normal, soft, nontender, nondistended Musculoskeletal: Cervical spine normal, full range of motion Extremities: No clubbing, cyanosis, or edema Peripheral pulses: 2+ radial, 2+ carotid Neurologic: Alert and oriented, cranial nerves 2-12 are grossly intact Psych: Alert and oriented, normal affect, no evidence of distress Assessment/Plan Diagnoses and all orders for this visit: Non-recurrent acute suppurative otitis media of left ear with spontaneous rupture of tympanic membrane Comments: Patient will continue her oral antibiotic. We will place her on antibiotic drops as well. We will see her back in 2 weeks Perforation of left tympanic membrane Comments: Perforation is likely very small and partially healed Orders: - ofloxacin (Floxin) 0.3 % otic solution; Administer 5 drops into the left ear in the morning and 5 drops before bedtime. Do all this for 10 days. documented in this encounter [facility] 07-19-2024 History of Present illness Narrative Images from the original note were not included. John Rivera DO Obstetrics and Gynecology Araceli Catherine 1970 07/19/24 [id number] Yearly Wellness Exam Chief Complaint Patient presents with Gynecologic Exam LMP: ROMY BSO 2001 HRT: None Last pap 07-10-23 neg. Last mammogram 04-05-24 [facility]. Denies breast, urinary, or bowel concerns. perferated ear drum Monday felt fluid leaking from LT ear, swollen face/ neck. Went to PCP yesterday- LT perferated ear drum- no ear drum at all, can't hear. Currently on doxycycline, decongestant, Tylenol- consult with ENT. Visit Vitals BP 160/86 Ht 5' 6 Wt 182 lb BMI 29.38 kg/m OB Status Hysterectomy Smoking Status Former BSA 1.96 m OB History Para Term AB Living 2 2 2 2 SAB IAB Ectopic Multiple Live Births 2 # Outcome Date GA Lbr David/2nd Weight Sex Type Anes PTL Lv 2 Term JAMES 1 Term CS-LTranv JAMES Obstetric Comments Heaviest weighed 9 lbs 8 oz Current Outpatient Medications Medication Sig Dispense Refill cyclobenzaprine (Flexeril) 5 MG tablet Take 5 mg by mouth doxycycline (Vibramycin) 100 MG capsule fluconazole (Diflucan) 150 MG tablet cholecalciferol (Vitamin D3) 25 MCG (1000 UT) tablet loratadine (Claritin) 10 MG tablet if needed Ventolin HFA 108 (90 Base) MCG/ACT inhaler if needed zinc 100 MG tablet No current facility-administered medications for this visit. Allergies Allergen Reactions Penicillamine GI intolerance Penicillins Other Reaction(s): Unknown Morphine Hives, Itching, Other and Rash Past Surgical History: Procedure Laterality Date APPENDECTOMY 1985 CERVICAL CONIZATION W/ LASER SECTION, LOW TRANSVERSE COLPOSCOPY with biopsy TOTAL ABDOMINAL HYSTERECTOMY W/ BILATERAL SALPINGOOPHORECTOMY 2001 VAGINAL AFTER SECTION Past Medical History: Diagnosis Date Abnormal Pap smear of cervix Appendicitis 1985 COVID-19 Fibroid HPV (human papilloma virus) infection Menopause ovarian failure Ovarian cyst Perforated eardrum, left Vaginal high risk human papillomavirus (HPV) DNA test positive ROS Const: Denies appetite change, fever, chills. Allergy: Denies medication reaction. Ocular: Denies visual acuity change. ENT: Denies hearing change. Endoc: Denies weight loss. Resp: Denies dyspnoea, wheezing. Cardiac: Denies angina, palpitations. GI: Denies nausea, vomiting. Haem: Denies bleeding. : Denies incontinence. MSK: Denies arthralgias, joint oedema. Derm: Denies rash, hair loss. Neuro: Denies ataxia, tremor. Also see HPI for elements of ROS documented therein and for details of positive findings, which shall supersede the foregoing. EXAM GENERAL EXAMINATION alert oriented well developed, well nourished. HEAD: normocephalic atraumatic. EYES: sclera anicteric. EARS: no obvious hearing deficit. Lear leaking fluid. NECK/THYROID: neck supple no cervical lymphadenopathy no thyromegaly. LYMPH NODES: no axillary, supraclavicular or inguinal adenopathy. SKIN: warm and dry. HEART: regular rate and rhythm. LUNGS: clear to auscultation bilaterally. CHEST:axillary nodes grossly normal. BREASTS:no masses palpable bilaterally, normal nipples bilaterally - everted -fatty replaced - dense - well supported- axilla negative. ABDOMEN: soft, nontender, nondistended, no masses palpable. BACK: no costovertebral angle tenderness, no obvious scoliosis/kyphosis. 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 EXTREMITIES no edema. NEUROLOGIC: alert and oriented. PSYCH: cooperative with exam. ICD-10-CM 1. Encounter for gynecological examination without abnormal finding Z01.419 Pelvic and breast exam completed. Findings of today's exam discussed with the patient. Continue MSBE. Ca/Vit D recommendations reviewed with the patient. The patient is to contact the office with any changes to her gynecological condition or any changes with breast or bleeding. The patient is to return in 1 year or as needed 2. Encounter for Papanicolaou smear of vagina Z12.72 IGP,rfxAptima HPV all,16/18,45 Thinprep collected. Will notify patient if results are abnormal. 3. Breast cancer screening by mammogram Z12.31 Bilateral screening mammogram with tomosynthesis Screening mammogram ordered. Patient to call and schedule. 4. Ear drum perforation, left H72.92 Ambulatory referral to ENT Patient going to call ENT after appt today to STAT appt. Entered by Roopa Montero MA acting as scribe for Dr. John Rivera. Signature Roopa Montero MA Date 07/19/24 . Time 8:34 AM . The documentation recorded by the scribe accurately reflects the service(s) I personally performed and the decisions I made. Signature Dandre Rivera D.O. Date 07/19/24 Time 5:00PM. documented in this encounter [facility] 05-18-2024 Evaluation + Plan note Diagnostic Tests PendingANA w/Reflex if POS 05/18/24IFE and PE, Serum 05/18/24 [facility] 09-29-2023 Hospital Discharge instructions Patient Education 09/29/2023 15:48:30 Joint Pain Joint Pain Joint pain may be caused by many things. Joint pain is likely to go away when you follow instructions from your health care provider for relieving pain at home. However, joint pain can also be caused by conditions that require more treatment. Common causes of joint pain include: Bruising in the area of the joint. Injury caused by repeating certain movements too many times. Age-related joint wear and tear. Buildup of uric acid crystals in the joint (gout). Inflammation of the joint. Other forms of arthritis. Infections of the joint or of the bone. Your health care provider may recommend that you take pain medicine or wear a supportive device like an elastic bandage, sling, or splint. If your joint pain continues, you may need lab or imaging tests to diagnose the cause of your joint pain. Follow these instructions at home: Managing pain, stiffness, and swelling If directed, put ice on the painful area. To do this: ?If you have a removable elastic bandage, sling, or splint, take it off as told by your doctor. ?Put ice in a plastic bag. ?Place a towel between your skin and the bag. ?Leave the ice on for 20 minutes, 2 3 times a day. ?Remove the ice if your skin turns bright red. This is very important. If you cannot feel pain, heat, or cold, you have a greater risk of damage to the area. Move your fingers and toes often to reduce stiffness and swelling. Raise the injured area above the level of your heart while you are sitting or lying down. If directed, apply heat to the painful area as often as told by your health care provider. Use the heat source that your health care provider recommends, such as a moist heat pack or a heating pad. Place a towel between your skin and the heat source. Leave the heat on for 20 30 minutes. Remove the heat if your skin turns bright red. This is especially important if you are unable to feel pain, heat, or cold. You have a greater risk of getting burned. Activity Rest as told by your health care provider. Do not do anything that causes or worsens pain. Begin exercising or stretching the affected area as told by your health care provider. Return to your normal activities as told by your health care provider. Ask your health care provider what activities are safe for you. If you have an elastic bandage, sling, or splint: Wear the bandage, sling, or splint as told by your health care provider. Remove it only as told by your health care provider. Loosen it if your fingers or toes below the joint tingle, become numb, or turn cold and blue. Keep it clean. Ask your health care provider if you should remove it before bathing. If the bandage, sling, or splint is not waterproof: ?Do not let it get wet. ?Cover it with a watertight covering when you take a bath or shower. General instructions Treatment may include medicines for pain and inflammation that are taken by mouth or applied to the skin. Take dtap-iln-gnypfpe and prescription medicines only as told by your health care provider. Do not use any products that contain nicotine or tobacco, such as cigarettes, e-cigarettes, and chewing tobacco. If you need help quitting, ask your health care provider. Keep all follow-up visits. This is important. Contact a health care provider if: You have pain that gets worse and does not get better with medicine. Your joint pain does not improve within 3 days. You have increased bruising or swelling. You have a fever. You lose 10 lb (4.5 kg) or more without trying. Get help right away if: You cannot move the joint. Your fingers or toes tingle, become numb, or turn cold and blue. You have a fever along with a joint that is red, warm, and swollen. Summary Joint pain may be caused by many things. Your health care provider may recommend that you take pain medicine or wear a supportive device such as an elastic bandage, sling, or splint. If your joint pain continues, you may need tests to diagnose the cause of your joint pain. Take ruhr-gak-xjfacon and prescription medicines only as told by your health care provider. This information is not intended to replace advice given to you by your health care provider. Make sure you discuss any questions you have with your health care provider. Document Revised: 11/04/2020 Document Reviewed: 11/04/2020 [employer] Patient Education 2022 [employer]. 09/29/2023 15:48:16 Acute Pain, Adult Acute Pain, Adult Acute pain is a type of sudden pain that may last for just a few days or for as long as six months. It is often related to an illness, injury, or medical procedure. Acute pain may be mild, moderate, or severe. Pain can make it hard for you to do your normal, daily activities. It can cause anxiety and lead to other problems if it is left untreated. Treatment depends on the cause and severity of your pain. Acute pain usually goes away once your injury has healed or you are no longer ill. Follow these instructions at home: Medicines Take swrb-axq-augeqyv and prescription medicines only as told by your health care provider. Take the lowest dose of medicine for the shortest amount of time needed to relieve the pain. If you are taking prescription pain medicine: ?Do not stop taking the medicine suddenly. Talk to your health care provider about how and when to discontinue prescription medicine. ?Do not take more pills than told by your health care provider even if your pain is severe. ?Do not take other nbwa-qim-ldcgheg pain medicines in addition to prescription pain medicine unless told by your health care provider. ?Ask your health care provider if the medicine requires you to avoid driving or using heavy machinery. ?Ask your health care provider if the medicine can cause constipation. You may need to take these actions to prevent or treat constipation: ?Drink enough fluid to keep your urine pale yellow. ?Eat foods that are high in fiber, such as beans, whole grains, and fresh fruits and vegetables. ?Take exkj-jqr-nsxxysp or prescription medicines. ?Limit foods that are high in fat and processed sugars, such as fried or sweet foods. Managing pain, stiffness, and swelling If directed, put ice on the affected area. To do this: Put ice in a plastic bag. Place a towel between your skin and the bag. Leave the ice on for 20 minutes, 2 3 times a day. If directed, apply heat to the affected area as often as told by your health care provider. Use the heat source that your health care provider recommends, such as a moist heat pack or a heating pad. Place a towel between your skin and the heat source. Leave the heat on for 20 30 minutes. Remove the heat if your skin turns bright red. This is especially important if you are unable to feel pain, heat, or cold. You may have a greater risk of getting burned. Activity Rest as told by your health care provider. Return to your normal activities as told by your health care provider. Ask your health care provider what activities are safe for you. General instructions Check your pain level as told by your health care provider. Ask your health care provider if other strategies such as distraction, relaxation, or physical therapies can help your pain. Keep all follow-up visits as told by your health care provider. This is important. Contact a health care provider if: Your pain is not controlled by medicine. Your pain does not improve or gets worse. You have side effects from pain medicines, such as vomiting or confusion. Get help right away if you: Have severe pain. Have trouble breathing. Lose consciousness. Have chest pain or pressure that lasts for more than a few minutes, or if you have other symptoms along with chest pain, including if you: ?Have pain or discomfort in one or both arms, your back, neck, jaw, or stomach. ?Have shortness of breath. ?Break out in a cold sweat. ?Feel nauseous. ?Become light-headed. These symptoms may represent a serious problem that is an emergency. Do not wait to see if the symptoms will go away. Get medical help right away. Call your local emergency services (911 in the [place] Do not drive yourself to the hospital. Summary Acute pain may be mild, moderate, or severe. It usually goes away once your injury has healed or you are no longer ill. Take dkcx-piq-hrjrgyv and prescription medicines only as told by your health care provider. Ask your health care provider if the medicine prescribed to you can cause constipation. Contact a health care provider if your pain is not controlled by medicine. This information is not intended to replace advice given to you by your health care provider. Make sure you discuss any questions you have with your health care provider. Document Revised: 12/08/2022 Document Reviewed: 12/09/2019 [employer] Patient Education 2022 [employer]. [facility] [place] 09-29-2023 Evaluation + Plan note Future Scheduled TestsSedimentation Rate Automated 09/29/23C-Reactive Protein High Sensitivity 09/29/23ANA w/Reflex if POS 09/29/23IFE and PE, Serum 09/29/23TSH With T4fr Reflex 09/29/23CBC w/ Auto Diff 09/29/23Comprehensive Metabolic Panel 09/29/23Iron Level 09/29/23Vitamin B12 Level 09/29/23XR Hip 2-3 Views Left 09/29/23CT Abdomen w/ Contrast 09/29/23XR Spine Lumbosacral Minimum 4 Views 09/29/23 [facility] 09-29-2023 Evaluation + Plan note Future Scheduled TestsSedimentation Rate Automated 09/29/23C-Reactive Protein High Sensitivity 09/29/23ANA w/Reflex if POS 09/29/23IFE and PE, Serum 09/29/23TSH With T4fr Reflex 09/29/23CBC w/ Auto Diff 09/29/23Comprehensive Metabolic Panel 09/29/23Iron Level 09/29/23Vitamin B12 Level 09/29/23 [facility] 05-03-2023 Hospital Discharge instructions Follow Up Care 05/03/2023 12:13:36 With:LAWSON FELIPE CNP, FAM Address: When:3 months Comments:Well adult visit [facility] 12-08-2022 Hospital Discharge instructions Patient Education 12/08/2022 11:18:46 Sinus Infection, Adult Sinus Infection, Adult A sinus infection, also called sinusitis, is inflammation of your sinuses. Sinuses are hollow spaces in the bones around your face. Your sinuses are located: Around your eyes. In the middle of your forehead. Behind your nose. In your cheekbones. Mucus normally drains out of your sinuses. When your nasal tissues become inflamed or swollen, mucus can become trapped or blocked. This allows bacteria, viruses, and fungi to grow, which leads to infection. Most infections of the sinuses are caused by a virus. A sinus infection can develop quickly. It can last for up to 4 weeks (acute) or for more than 12 weeks (chronic). A sinus infection often develops after a cold. What are the causes? This condition is caused by anything that creates swelling in the sinuses or stops mucus from draining. This includes: Allergies. Asthma. Infection from bacteria or viruses. Deformities or blockages in your nose or sinuses. Abnormal growths in the nose (nasal polyps). Pollutants, such as chemicals or irritants in the air. Infection from fungi. This is rare. What increases the risk? You are more likely to develop this condition if you: Have a weak body defense system (immune system). Do a lot of swimming or diving. Overuse nasal sprays. Smoke. What are the signs or symptoms? The main symptoms of this condition are pain and a feeling of pressure around the affected sinuses. Other symptoms include: Stuffy nose or congestion that makes it difficult to breathe through your nose. Thick yellow or greenish drainage from your nose. Tenderness, swelling, and warmth over the affected sinuses. A cough that may get worse at night. Decreased sense of smell and taste. Extra mucus that collects in the throat or the back of the nose (postnasal drip) causing a sore throat or bad breath. Tiredness (fatigue). Fever. How is this diagnosed? This condition is diagnosed based on: Your symptoms. Your medical history. A physical exam. Tests to find out if your condition is acute or chronic. This may include: ?Checking your nose for nasal polyps. ?Viewing your sinuses using a device that has a light (endoscope). ?Testing for allergies or bacteria. ?Imaging tests, such as an MRI or CT scan. In rare cases, a bone biopsy may be done to rule out more serious types of fungal sinus disease. How is this treated? Treatment for a sinus infection depends on the cause and whether your condition is chronic or acute. If caused by a virus, your symptoms should go away on their own within 10 days. You may be given medicines to relieve symptoms. They include: ?Medicines that shrink swollen nasal passages (decongestants). ?A spray that eases inflammation of the nostrils (topical intranasal corticosteroids). ?Rinses that help get rid of thick mucus in your nose (nasal saline washes). ?Medicines that treat allergies (antihistamines). ?Euxv-hrx-fdlbach pain relievers. If caused by bacteria, your health care provider may recommend waiting to see if your symptoms improve. Most bacterial infections will get better without antibiotic medicine. You may be given antibiotics if you have: ?A severe infection. ?A weak immune system. If caused by narrow nasal passages or nasal polyps, surgery may be needed. Follow these instructions at home: Medicines Take, use, or apply icwv-xwu-njbhlek and prescription medicines only as told by your health care provider. These may include nasal sprays. If you were prescribed an antibiotic medicine, take it as told by your health care provider. Do not stop taking the antibiotic even if you start to feel better. Hydrate and humidify Drink enough fluid to keep your urine pale yellow. Staying hydrated will help to thin your mucus. Use a cool mist humidifier to keep the humidity level in your home above 50%. Inhale steam for 10 15 minutes, 3 4 times a day, or as told by your health care provider. You can do this in the bathroom while a hot shower is running. Limit your exposure to cool or dry air. Rest Rest as much as possible. Sleep with your head raised (elevated). Make sure you get enough sleep each night. General instructions Apply a warm, moist washcloth to your face 3 4 times a day or as told by your health care provider. This will help with discomfort. Use nasal saline washes as often as told by your health care provider. Wash your hands often with soap and water to reduce your exposure to germs. If soap and water are not available, use hand package delivery driver. Do not smoke. Avoid being around people who are smoking (secondhand smoke). Keep all follow-up visits. This is important. Contact a health care provider if: You have a fever. Your symptoms get worse. Your symptoms do not improve within 10 days. Get help right away if: You have a severe headache. You have persistent vomiting. You have severe pain or swelling around your face or eyes. You have vision problems. You develop confusion. Your neck is stiff. You have trouble breathing. These symptoms may be an emergency. Get help right away. Call 911. Do not wait to see if the symptoms will go away. Do not drive yourself to the hospital. Summary A sinus infection is soreness and inflammation of your sinuses. Sinuses are hollow spaces in the bones around your face. This condition is caused by nasal tissues that become inflamed or swollen. The swelling traps or blocks the flow of mucus. This allows bacteria, viruses, and fungi to grow, which leads to infection. If you were prescribed an antibiotic medicine, take it as told by your health care provider. Do not stop taking the antibiotic even if you start to feel better. Keep all follow-up visits. This is important. This information is not intended to replace advice given to you by your health care provider. Make sure you discuss any questions you have with your health care provider. Document Revised: 06/28/2022 Document Reviewed: 06/28/2022 [employer] Patient Education 2022 [employer]. Follow Up Care 12/08/2022 07:37:36 With:KRYSTA CRUZ CNP Address: [address] [place] [address] When: Unknown [facility] Evaluation + Plan note No data available for this section [facility] Evaluation + Plan note [facility] Evaluation + Plan note Future Appointments Appointment Date:04/19/2025 09:00:00 AM Scheduled Provider: Location:FT.CAT SCAN Appointment Type:CT Sinus/Orbits/Maxillofacial (FT) Future Scheduled TestsCT Maxillofacial w/o Contrast 04/19/25 [facility] Evaluation note No assessment inform ation available [facility] Work Phone: Evaluation note Diagnosis Encounter for gynecological examination without abnormal finding- Primary Encounter for Papanicolaou smear of vagina Breast cancer screening by mammogram Ear drum perforation, left documented in this encounter [facility] HealthcareEvaluation note* Diagnosis Non-recurrent acute suppurative otitis media of left ear with spontaneous rupture of tympanic membrane- Primary Perforation of left tympanic membrane documented in this encounter [facility] HealthcareEvaluation note* Diagnosis Perforation of left tympanic membrane- Primary Non-recurrent acute suppurative otitis media of left ear with spontaneous rupture of tympanic membrane documented in this encounter [facility] HealthcareEvaluation note* Diagnosis Perforation of left tympanic membrane- Primary Non-recurrent acute suppurative otitis media of left ear with spontaneous rupture of tympanic membrane Chronic rhinitis documented in this encounter [facility] HealthcareEvaluation note* Diagnosis Melanocytic nevus of face, other location- Primary Seborrheic keratosis Lentigines Seborrheic keratosis, inflamed Actinic keratosis documented in this encounter [facility] HealthcareHospital Discharge instructions No data available for this section [facility] available [facility] this section [facility] Reason for referral (narrative) [facility] [place] Summary Purpose Family History No Family History Records Found No data available for this section No data available for this section No data available for this section No Family History Records FoundNo Family History Records FoundNo Family History Records FoundNo Family History Records FoundNo Family History Records FoundNo Family History Records FoundNo Family History Records FoundNo Family History Records FoundNo Family History Records Found No data available for this section No Family History Records FoundNo Family History Records Found No data available for this section No data available for this section No data available for this section No data available for this section No Family History Records Found No data available for this section No Family History Records FoundNo Family History Records Found No data available for this section No data available for this section No Family History Records Found Advance Directives No Advanced Directives Records Found Advance Directive Response Recorded Date/ Time Advance Directives No June 11, 2024 11:08am Chief Complaint and Reason for Visit Chief Complaint LABS for WELLNESS Chief Complaint z23 Additional Source Comments INFORMATION SOURCE (unrecogn ized section and content) DATE CREATED AUTHOR 02/11/2022 [facility] DATE CREATED AUTHOR AUTHOR'S ORGANIZ ATION 05/20/2024 [employer] [facility] DATE CREATED AUTHOR AUTHOR'S ORGANIZ ATION 05/22/2024 [facility] ical Center DATE CREATED AUTHOR AUTHOR'S ORGANIZ ATION 06/12/2024 [facility] DATE CREATED AUTHOR AUTHOR'S ORGANIZ ATION 11/26/2024 [facility] EPIC DATE CREATED AUTHOR AUTHOR'S ORGANIZ ATION [facility]/06[facility]20[facility] DATE CREATED AUTHOR AUTHOR'S ORGANIZ ATION 04/07/2025 [facility] ical Center DATE CREATED AUTHOR AUTHOR'S ORGANIZ ATION 04/21/2025 [facility] Patient Care team informatio n (unrecognized section and content) Team Status: Active Member Role Status Dates Chris Singh MD Primary Care Provider Active Team Status: Inactive Member Role Status Dates Chris Singh MD Primary Care Provider Active Kellie Enamorado-Ciro Visits , ODD PIECE CHECKER Attending Provider Active Team Status: Inactive Member Role Status Dates Chris Singh MD Primary Care Provider Active Start: June 03, 2024 End: June 03, 2024 Scotty Carter - [facility] , DO [facility] Attending Provider Active Start: June 03, 2024 End: June 03, 2024 Environmental Engineer Scientist Relationship Specialty Start Date End Date Jose Muhammad MD [address] [place] [id number] PCP - General Family Medicine 07/10/23 Environmental Engineer Scientist Relationship Specialty Start Date End Date Jose Muhammad MD [address] [place] [phone] PCP - General Family Medicine 07/10/23 Owen Cronin MD [address] [id number] Referring Physician Family Medicine 07/22/24 Tom Oro DO [address] [place] [place] [address] Otolaryngology 07/23/24 Environmental Engineer Scientist Relationship Specialty Start Date End Date Jose Muhammad MD [address] [place] [phone] PCP - General Family Medicine 07/10/23 Owen Cronin MD [address] [id number] Referring Physician Family Medicine 07/22/24 Tom Oro DO [address] [place] [address] Otolaryngology 07/23/24 Environmental Engineer Scientist Relationship Specialty Start Date End Date Jose Muhammad MD [address] [place] [phone] PCP - General Family Medicine 07/10/23 Owen Cronin MD [address] [address] Referring Physician Family Medicine 07/22/24 Tom Oro DO [address] [place] [address] Otolaryngology 07/23/24 Environmental Engineer Scientist Relationship Specialty Start Date End Date Jose Muhammad MD [address] [place] [phone] PCP - General Family Medicine 07/10/23 Owen Cronin MD [address] [address] Referring Physician Family Medicine 07/22/24 Tom Oro DO [address] [address] Otolaryngology 07/23/24 Environmental Engineer Scientist Relationship Specialty Start Date End Date Jose Muhammad MD [address] [place] [id number] PCP - General Family Medicine 07/10/23 Owen Cronin MD [address] [id number] Referring Physician Family Medicine 07/22/24 Tom Oro DO [address] [place] [address] Otolaryngology 07/23/24 Environmental Engineer Scientist Relationship Specialty Start Date End Date Jose Muhammad MD [address] [facility] [address] [place] [phone] PCP - General Family Medicine 07/10/23 Owen Cronin MD [address] [place] [id number] Referring Physician Family Medicine 07/22/24 Tom Oro DO [address] [place] [address] Otolaryngology 07/23/24 Environmental Engineer Scientist Relationship Specialty Start Date End Date Jose Muhammad MD [address] [facility] [address] [place] [phone] PCP - General Family Medicine 07/10/23 Owen Cronin MD [address] [place] [id number] Referring Physician Family Medicine 07/22/24 Tom Oro DO [address] [place] [address] Otolaryngology 07/23/24 Goals (unrecognized section and content) Goals may be documented in a n alternate section Reason for Visit (unrecogniz ed section and content) Reason Comments Gynecologic Exam LMP: ROMY BSO 2002HRT : NoneLast pap 07-10-23 neg.Last mammogram 04-05-24 [facility]. Denies breast, urinary, or bowel concerns. perferated ear drum Monday felt fluid leaking from LT ear, swollen face/ neck. Went to PCP yesterday- LT perferated ear drum- no ear drum at all, can't hear. Currently on doxycycline, decongestant, Tylenol- consult with ENT. Reason Comments Ear Problem New Patient : TM per f Reason Comments Ear Problem 2 week eric TM perf Reason Comments Ear Problem 3 week eric TM perf Reason Comments Skin Check Suspicious Skin Lesion FOR RECORDS PERTAINING TO PATIENTS WHO ARE OR HAVE BEEN ENROLLED IN A CHEMICAL DEPENDENCY/SUBSTANCEABUSE PROGRAM, SOME INFORMATION MAY BE OMITTED. This clinical summary was aggregated from multiple sources. Caution should be exercised in using it in the provision of clinical care. This summary normalizes information from multiple sources, and as a consequence, information in this document may materially change the coding, format and clinical context of patient data. In addition, data may be omitted in some cases. CLINICAL DECISIONS SHOULD BE BASED ON THE PRIMARY CLINICAL RECORDS. [employer] provides no warranty or guarantee of the accuracy or completeness of information in this document.
== END 2025-04-24 14:21 | disposition home or self-care (01) ==
LOC: MAMMO 14:20
PROVIDERS: Visit Provider Obstetrics & Gynecology
DX: Z12.31 Encounter for screening mammogram for malignant neoplasm of breast (principal)
CPT/HCPCS: 77063; 77067